=== PATIENT | female | born 1995 | race Caucasian/White ===

== ENCOUNTER 2017-08-12 12:28 | Emergency (ER) | payer BC, SELFPAY ==
[2017-08-12 12:28] VITALS: BP 126/66; PULSE 83; RESP 14; TEMP 36.9; O2SAT 99; BMI 28.3
[2017-08-12 13:08] LABS: Color, Urine Yellow (Yellow); Glucose, Dipstick Normal (Normal); Internal QC Validated? YES +Cl - CLEAR BKGD; Ketone-Dipstick 5 mg/dl (Negative); Leukocyte Esterase-Dipstick 100 /ul (Negative); Nitrite-Dipstick Negative (Negative); Occult Blood-Urine 250 /ul (Negative); Pregnancy, Urine Negative Negative; Protein-Dipstick 15 mg/dl (Negative); Specific Gravity, Urine 1.025 (1.002-1.030); Urine Bilirubin Dipstick 1 mg/dL (Negative); Urine Clarity Sl. Cloudy (Clear); Urine Urobilinogen 1 mg/dl (Normal)
[2017-08-12 13:11] LABS: Bacteria 2+ /hpf (None Seen); Mucous, Urine 1+ /hpf (<or=2+); Squamous Epithelial Cells - UA 5-10 SEEN /hpf (5-10); White Blood Cells 5-10 SEEN /hpf (0-5)
[2017-08-12 13:12] LABS: Red Blood Cells-Urine 0-5 SEEN /hpf (0-5)
--- NOTE | 2017-08-12 13:17 | ED.DCSUM_ITS ---
- ER Visit Summary Date of Service: 08/12/17 Chief Complaint: UTI. History of Present Illness: The patient is a 22 F who states that beginning she has had dysuria and urinary frequency. States she gets frequent UTIs and typically treats them herself. She states that she has been using some wjou-kxo-tzajegi Azo and is not health. Her mom advised her to seek evaluation by physician so that she does not get pyelonephritis. She denies any fevers nausea vomiting or low back pain. Physical Examination: Afebrile vital signs are stable Gen: Well-nourished well-developed Head: Normocephalic atraumatic Eyes: Perrl EOMI ENT: TMs clear no rhinorrhea moist mucous membranes Neck: Supple no lymphadenopathy no JVD nontender CVS: Regular rate rhythm no murmurs normal S1-S2 Respiratory: No distress clear to auscultation bilaterally chest nontender Abdomen: Soft nontender nondistended normal bowel sounds no masses Back: Nontender Extremity: Nontender no edema Skin: Normal color no rash Neuro: alert orientated ?3 CN II-XII intact normal strength sensation reflexes gait cerebellar Psych: Normal affect normal mood Test Results: Analysis showed 2+ bacteria. There were 5-10 epithelial cells 5- 10 white cells noted. Positive leukocyte esterase positive blood negative nitrates. Parents test negative. Emergency Department Course and Treatment: We will contaminated the patient's symptoms are consistent with UTI. I will place her on Macrobid for 5 days. Return if worsening or follow-up with primary care Impression:. Acute cystitis This note was generated with Sharetribe dictation software. It may contain incorrect words, spelling, and punctuation that were not noted in review of the chart prior to signing ED Disposition - Plan for ED Patient: Disposition: Home or Assisted Living Chief Complaint: Complaint Instructions: ED UTI Cystitis Female Prescriptions: Nitrofurantoin Macrocrystals [Macrobid] 100 mg PO Q12 #10 cap Referrals: Claudette Reveles [Primary Care Provider] - 3-5 Days if not improving
== END 2017-08-12 13:32 | disposition home or self-care (01) ==
PROVIDERS: Emergency Provider Emergency Medicine; Family Provider Nurse Practitioner Adult Health; PCP Nurse Practitioner Adult Health
DX: N39.0 Urinary tract infection, site not specified (principal); F32.9 Major depressive disorder, single episode, unspecified; Z87.891 Personal history of nicotine dependence; Z79.899 Other long term (current) drug therapy
CPT/HCPCS: 81001; 81025; 99282

== ENCOUNTER → 2018-11-04 | Outpatient (CLI) | payer OTHER, SELFPAY | END | disposition home or self-care (01) | PROVIDERS: Family Provider Family Medicine; PCP Family Medicine; Referring Provider Nurse Practitioner Adult Health; Visit Provider Nurse Practitioner Adult Health | DX: N73.0 Acute parametritis and pelvic cellulitis (principal) | CPT/HCPCS: 87070; 87205 ==

== ENCOUNTER → 2018-11-15 | Outpatient (CLI) | payer OTHER, SELFPAY ==
[2018-11-15 17:36] LABS: Chlamydia Trachomatis by PCR Negative (Negative); Neisserai gonorrhoeae by PCR Negative (Negative); Probe Check PASS; Sample Adequacy Control PASS; Specimen Processing Control PASS
== END | disposition home or self-care (01) ==
LOC: LABSPEC 13:54
PROVIDERS: Visit Provider Obstetrics & Gynecology
DX: Z12.4 Encounter for screening for malignant neoplasm of cervix (principal); Z11.3 Encounter for screening for infections with a predominantly sexual mode of transmission
CPT/HCPCS: 87491; 87591; 88175; G0145

== ENCOUNTER 2019-03-25 10:31 | Emergency (ER) | payer OTHER, SELFPAY ==
[2019-03-25 10:32] VITALS: BP 110/69; PULSE 110; RESP 16; TEMP 37.1; O2SAT 98; BMI 27.4
--- NOTE | 2019-03-25 10:51 | RAD_ITS ---
STUDY: X-RAY - RIGHT SHOULDER REASON FOR EXAM: Female, 24 years old. Shoulder pain TECHNIQUE: 4 view(s) of the shoulder. COMPARISON: None. FINDINGS: Normal glenohumeral articulation. Normal acromioclavicular joint. Normal acromion. Normal humeral head and visualized proximal humerus. The soft tissue structures are unremarkable. Normal visualized pulmonary apex. RAD/Shoulder min 2 Views IMPRESSION: Normal x-ray examination of the shoulder. Electronically Signed: Campos Clement MD at 11:19 EDT Tel , Service support ,
--- NOTE | 2019-03-25 10:51 | ED.VIS.GEN ---
History of Present Illness Chief Complaint: Upper Extremity Injury Informant: Patient Onset: Month(s) Context: Sudden Onset - Worse this evening Timing: Continuous Quality: Pain Location: Right trapezius/AC joint Current Severity: Mild Maximum Severity: Severe Worsened by: Use Relieved by: Rest Associated Symptoms: No associated symptoms Narrative: Patient is a 24-year-old fysoj-zuih-czfncbij female who presents because of exacerbation of right shoulder pain that she is had for months. She denies paresthesia, anesthesia motors. She localizes the pain to the right trapezius region and over the AC joint. There is no history of trauma. She has no cardiac respiratory symptoms. Prior similar symptoms: Yes Recent Illness/Hospitalization: No - Past Medical History (1) No significant past medical history Status: Acute Past Medical History - Allergies and Home Meds Allergies/Adverse Reactions: Allergies No Known Allergies Allergy (Verified 08/12/17 12:30) Primary Care Physician: Lance James MD [Primary Care Provider] - Prior records reviewed: Yes Past Medical History: None Surgical History: no surgical history Lives: Alone Smoking Status: Never smoker Drugs: None Review of Systems General: Denies: Chills, Fever, Subjective, Sweats Cardiovascular: Denies: Chest pain, Palpitations Respiratory: Denies: Dyspnea, Cough, Dyspnea on exertion Gastrointestinal: Denies: Nausea, Vomiting Musculoskeletal: Reports: Extremity Pain. Denies: Myalgias, Arthralgias, Neck pain, Back pain, Swelling Skin: Denies: Rash, Wounds Neurological: Denies: Weakness, Parasthesia, Numbness Physical Exam Vital Signs/Narrative: Vital Signs Temp Pulse Resp BP Pulse Ox 03/25/19 10:32 98.7 F 110 H 16 110/69 98 Inital Vital Signs reviewed: Yes General: Well nourished, Well developed, No Acute Distress Head: Normocephalic, Atraumatic Eyes: Perrl, EOMI. Negative for: Pale conjunctiva, Scleral icterus ENT: Moist mucous membranes, No rhinorrhea Neck: Supple, Nontender, No lymphadenopathy, No JVD Cardiovascular: Regular rate, Regular rhythm, No murmurs Abdomen: Soft Extremities: No edema, - - Axillary, median, radial and ulnar function intact. Radial pulses palpable. There is pain the patient over the AC joint and right trapezius. Negative drop test. Patient has significant pain with abduction past 90 degrees. There is no pain the patient over the lateral medial epicondyle present over the base of the radial head or olecranon process. There is no pain the patient over the distal radius or ulna. There is no pain the patient carpal bones, metacarpal bones or phalanges.. Negative for: Nontender Skin: Normal color, No rash Neurological: Alert, Oriented x3, Cranial nerves II-XII grossly intact, Normal Strength, Normal Sensation Psychological: Normal affect Diagnostic/Tx/Re-eval Chest X-Ray - ED: Read by ED Physician, - - View x-ray of the shoulder reveals no abnormality osseous structures. AC joint is normal. There is no calcification supraspinatus tendon. The humerus appears normal. There is no arthritic changes. - Medical Decision Making X-ray of the shoulder was obtained to determine if there is consultation of the supraspinatus tendon. Of note patient was using her cell phone when I entered the room. Also when asked to shift the left she used her right upper extremity to push off the bed and move. With an unremarkable x-ray and months of pain will discharge patient to take NSAID and follow-up with primary care physician. ED Disposition - Plan for ED Patient: Disposition: Home or Assisted Living Diagnosis: Right shoulder pain, Impingement syndrome of right shoulder Instructions: Shoulder Impingement Syndrome Prescriptions: Naproxen [Naprosyn] 500 mg PO BID #14 tab Prescription Printed Referrals: Lance James MD [Primary Care Provider] - 10-14 Days if not better
== END 2019-03-25 11:32 | disposition home or self-care (01) ==
PROVIDERS: Emergency Provider Emergency Medicine; Family Provider Family Medicine; PCP Family Medicine
DX: M75.41 Impingement syndrome of right shoulder (principal)
CPT/HCPCS: 73030; 99282

== ENCOUNTER 2019-04-25 14:53 | Outpatient (RCR) | payer OTHER, SELFPAY ==
--- NOTE | 2019-04-28 13:28 | HP.PTEVAL_ITS ---
Patient's Visit Information JOVANNY GONZALEZ is a 24 year old F referred to Physical Therapy by Tamika Navarro MD with a diagnosis of R shoulder pain. Date of Evaluation: 04/25/19 Physical Therapist: Valentino Trujillo DPT - Visit Plan Frequency: 2x /Week Duration: 4-6 Weeks Plan: Start with T spine mobilization, inferior glides to R shoulder, RTC stability exercises. May use modalities if needed. - Subjective Findings: Pt. is here today for her initial evaluation with diagnosis or R shoulder pain. Pt. reports having increased pain for ~2-3 weeks. She reports no mech of injury, but thinks it is from doing repetative motions. Pt. reports ahving pain at subacromial space and at R scapular region. Denies N/T, no weakness. Pt. has greatest pain with over head motions. Pt. does also wake up due to pain occassionally. She went to ER one day due to pain and was diagnosed with impingment. Pt. is hopeful to reduce symptoms in order to get back to all recreational and work activities without limitations. - Pain R shoulder Pain Intensity (Out of 10): 3 Pain Intensity Range: 1, 6 R scapular region Pain Intensity (Out of 10): 2 Pain Intensity Range: 1, 6 - Objective POSTURE: PT. has rounded shoulders, FH posture. Pt. is able to improve, but difficult to maintain. PALPATION: Pt. has pain with palpation of subacromial space, R UT, R T2-T6 with spring testing, and along subscapu muscle belly. NEURO: normal throughout. ROM: R shoulder- pt. has full motion, but pain with greater than ~130deg of flexion and abudction. Pt. has decreased extension of T/S. MMT: Pt. has 5-/5 R RTC strength, 5/5 shoulder abd,flexion, extension. - Goals Goal 1:: Pt. to be I with HEP. Goal Time Frame: 4-6 Weeks Goal 2:: Pt. to have increased R shoulder and RTC strength increased to 5/5. Goal Time Frame: 4-6 Weeks Goal 3:: Pt. to have full R shoulder ROM withotu increase in symptoms. Goal Time Frame: 4-6 Weeks Goal 4:: Pt. to complete all work related activtiies without increase in symptoms. Goal Time Frame: 4-6 Weeks - Rehabilitation Potential Physical Therapy Diagnosis: Pt. has signs of R shoulder pain with special testing suggesting impingment. Pt. has poor posture and rounded shoulder reinforcing her shoulder impingment. Pt. would beneift from PT to increase RTC strength/stability and working on postural strengthening. Rehabilitation Potential: Excellent - Anticipated Interventions Patient/Client Instruction: Educate patient on: Condition, Plan of Care, Risk Factors, Benefits of Fitness Program For the Purpose of:: To improve decision making, To facilitate caregiver knowledge, To improve self management, To prevent re-injury, To improve ability to perform tasks related to life management, To improve tolerance to ADL's Therapeutic Exercise to Include: Strength training, Power training, Postural training, Flexibilty training, Passive ROM, Active ROM, Tommy Exercises, Sca pular Strength/Stabilization For the Purpose of:: To decrease pain, To decrease swelling/inflammation, To increase ROM, To improve nutrient delivery to tissue, To increase oxygenation perfusion, To improve muscle performance and motor function, To improve ability of physical actions for home/community/work/leisure, To decrease soft tissue restriction, To increase flexibility/ROM Manual Therapy Techniques to Include: Mobilization, Functional dry needling, Soft tissue mobilization For the Purpose of:: To decrease pain, To decrease swelling/inflammation, To increase ROM, To improve nutrient delivery to tissue IF ES: Yes Cryotherapy (ice pack, ice massage): Yes Ultrasound (thermal/non thermal): Yes For the Purpose of:: To decrease pain, To decrease swelling/inflammation, To increase ROM Thank you for the opportunity to evaluate your patient. For Medicare and Medicare HMO plans, please review the plan of care and approve it. It will need to be FAXED BACK to us at [phone] for Medicare purposes. For Medicare only, by signing this I certify the plan of care. Please let me know if there are questions or concerns regarding this plan of care. Physician Signature : Date:
--- NOTE | 2019-10-17 08:38 | HP.PT.NRP ---
JOVANNY GONZALEZ was seen in my office for initial evaluation on 04/25/19. The following Plan of Care was established for this patient: Initial Frequency: 2x /Week Initial Duration: 4-6 Weeks Patient/Client Instruction: Educate patient on: Condition, Plan of Care, Risk Factors, Benefits of Fitness Program For the Purpose of:: To improve decision making, To facilitate caregiver knowledge, To improve self management, To prevent re-injury, To improve ability to perform tasks related to life management, To improve tolerance to ADL's Therapeutic Exercise to Include: Strength training, Power training, Postural training, Flexibilty training, Passive ROM, Active ROM, Tommy Exercises, Scapular Strength/Stabilization For the Purpose of:: To decrease pain, To decrease swelling/inflammation, To increase ROM, To improve nutrient delivery to tissue, To increase oxygenation perfusion, To improve muscle performance and motor function, To improve ability of physical actions for home/community/work/leisure, To decrease soft tissue restriction, To increase flexibility/ROM Manual Therapy Techniques to Include: Mobilization, Functional dry needling, Soft tissue mobilization For the Purpose of:: To decrease pain, To decrease swelling/inflammation, To increase ROM, To improve nutrient delivery to tissue IF ES: Yes Cryotherapy (ice pack, ice massage): Yes Ultrasound (thermal/non thermal): Yes For the Purpose of:: To decrease pain, To decrease swelling/inflammation, To increase ROM This patient was last seen in our office 04/25/19. Pertinent comments regarding their Physical therapy will appear below: Pt. was seen for her R shoulder pain. Pt. came her her initial visit and has not been seen since. Pt. will be DC from PT at this point in time. At this point I will be discontinuing this patient from physical therapy. I would be happy to see this patient again in the future if found appropriate by the physician. Thank you! SEVERINO SaucedaT
== END 2019-04-25 19:00 | disposition home or self-care (01) ==
LOC: PT 14:53
PROVIDERS: Family Provider Family Medicine; PCP Family Medicine; Referring Provider Family Medicine; Visit Provider Family Medicine
DX: M25.511 Pain in right shoulder (principal)
CPT/HCPCS: 97161

== ENCOUNTER 2020-05-10 14:48 | Emergency (ER) | payer OTHER, SELFPAY ==
[2020-05-10 14:48] VITALS: BP 137/78; PULSE 106; RESP 16; TEMP 36.5; O2SAT 100; BMI 32.8
--- NOTE | 2020-05-10 16:30 | EKG12_ITS ---
Test Reason : Blood Pressure : / mmHG Vent. Rate : 080 BPM Atrial Rate : 080 BPM P-R Int : 134 ms QRS Dur : 090 ms QT Int : 378 ms P-R-T Axes : 023 028 026 degrees QTc Int : 435 ms Normal sinus rhythm with sinus arrhythmia Normal ECG Confirmed by MISAEL BENITO, LETTY ([id number]), editor house organ AARON CARMICHAEL ([id number]) on 05/12/2020 10:45:56 AM Referred By: CHICA Confirmed By:LETTY DOUGLAS MD
--- NOTE | 2020-05-10 16:53 | ED.DCSUM_ITS ---
History of Present Illness Chief Complaint: Shortness of Breath Informant: Patient Onset: Weeks Current Severity: Moderate Maximum Severity: Moderate Narrative: Patient presents due to concerns of elevated heart rate and shortness of breath. She states her baseline heart rate is between 60 and 80. For the last week she has been running between 100-140. She states that 2 weeks ago she was exposed to someone with Covid. She had a Covid test at that time that returned negative, however her doctors felt it was a false negative. Over the past 1 week she has noted pain with deep breath and elevated heart rate. She reports the nausea she was experiencing last week is improved. She did have a second Covid test sent out and those results should be back later today or tomorrow. Past Medical History - Allergies and Home Meds Allergies/Adverse Reactions: Allergies No Known Allergies Allergy (Verified 05/10/20 14:50) Primary Care Physician: Lance James MD [Primary Care Provider] - Past Medical History: None Surgical History: no surgical history Smoking Status: Never smoker Review of Systems General: Denies: Chills, Fever Eyes: Denies: Visual changes - bilaterally ENT: Denies: Bilateral ear pain Cardiovascular: Reports: Chest pain Respiratory: Reports: Dyspnea. Denies: Cough Gastrointestinal: Denies: Abdominal pain, Vomiting, Diarrhea Genitourinary: Denies: Dysuria Musculoskeletal: Denies: Extremity Pain Skin: Denies: Rash Neurological: Denies: Headache Hematologic: Denies: Easy bruising, Easy bleeding Allergy: Denies: Uticaria Physical Exam Vital Signs/Narrative: Vital Signs Temp Pulse Resp BP Pulse Ox 05/10/20 14:48 97.7 F L 106 H 16 137/78 H 100 Inital Vital Signs reviewed: Yes General: Well nourished, Well developed Head: Normocephalic ENT: Moist mucous membranes Neck: Supple Cardiovascular: Regular rhythm, Tachycardia - Heart rate 105 the time of my examination. Respiratory: No distress, CTA bilaterally Abdomen: Soft, Nontender Neurological: Alert, Oriented x3 Psychological: Normal affect Diagnostic/Tx/Re-eval 05/10/20 17:59 CTA Chest W/WO Contrast [CT] Stat Laboratory Results 05/10/20 05/10/20 05/10/20 16:45 16:45 16:45 WBC 9.5 RBC 4.69 Hgb 14.7 Hct 42.5 MCV 90.6 MCH 31.3 MCHC 34.6 RDW Std Deviation 40.6 RDW Coeff of Terrence 12.4 Plt Count 368 MPV 9.6 Immature Gran % (Auto) 0.300 Neut % (Auto) 65.4 Lymph % (Auto) 26.1 [place] % (Auto) 6.2 Eos % (Auto) 1.6 Baso % (Auto) 0.4 Absolute Neuts (auto) 6.2 Absolute Lymphs (auto) 2.47 Nucleated RBC % 0 D-Dimer Quant (PE/DVT) 0.66 H* Sodium 143 Potassium 3.5 Chloride 114 H Carbon Dioxide 23.0 Anion Gap 6 BUN 9 Creatinine 1.10 H Estim Creat Clear Calc 65.24 Est GFR (MDRD) Af Amer 78 Est GFR (MDRD) Non-Af 65 BUN/Creatinine Ratio 8.2 L Glucose 107 H Calcium 8.6 Troponin I < 0.015 - EKG Initial EKG Interpretation: Sinus Rhythm - Sinus at 80 with no acute ischemia. - Medical Decision Making Patient was given a small amount of IV fluid here. D-dimer was slightly elevated and she was sent for CTA of her chest. She called the nurse into the room stating that she needed to leave prior to the CTA results being available. She states that her grandmother just from [place]} and she needs to go be with her family. I discussed with her the risks of leaving if she may have a blood clot in her chest. I reassured her that we would certainly call her if this is the case, but it would delay her treatment to blood thinners. She voices understanding and agreement. Patient does have a repeat Covid test pending with results available either later today or tomorrow. ED Disposition - Plan for ED Patient: Disposition: Home or Assisted Living Diagnosis: Viral syndrome Instructions: ED Viral Syndrome Referrals: Lance James MD [Primary Care Provider] -
[2020-05-10 17:02] LABS: Absolute Lymphocyte Count 2.47 X10^3/uL (0.83-4.51); Absolute Neutrophil Count 6.2 X10^3/uL (2.0-7.7); Basophil# 0.04 X10^3/uL; Basophil% 0.4 % (0-1); Eosinophil# 0.15 X10^3/uL; Eosinophils% 1.6 % (0-5); Hematocrit 42.5 % (37-47); Hemoglobin 14.7 g/dL (12.0-15.0); Lymphocyte # 2.47 X10^3/ul (4.0); Lymphocyte % 26.1 % (19-41); Mean Corp Hgb Conc 34.6 g/dL (32-36); Mean Corpuscular Hgb 31.3 pg (27.0-32.0); Mean Corpuscular Volume 90.6 fL (81-99); Mean Platelet Vol. 9.6 fl (6.2-12.0); Monocyte# 0.59 X10^3/uL; Monocyte% 6.2 % (0-10); NRBC Flagged by Analyzer 0 % (0-5); Neutrophil # 6.18 X10^3/uL (2.7-7.7); Neutrophil % 65.4 % (47-70); Platelet Count 368 K/mm3 (150-450); RBC Distribution Width CV 12.4 % (11.6-14.6); RBC Distribution Width SD 40.6 fl (35.1-43.9); Red Blood Count 4.69 M/mm3 (4.2-5.4); White Blood Count 9.5 K/mm3 (4.4-11.0)
[2020-05-10 17:05] VITALS: BP 108/63; PULSE 105; RESP 21; TEMP 36.6; O2SAT 99
[2020-05-10 17:10] VITALS: O2SAT 99
[2020-05-10 17:21] LABS: D-Dimer Quantitative (DVT/PE) 0.66 FEU/ug/m (0.27-0.49)
[2020-05-10 17:28] LABS: Anion Gap 6 (5-15); BUN 9 mg/dL (7-18); BUN/Creat Ratio 8.2 RATIO (10-20); Calcium,Total 8.6 mg/dL (8.5-10.1); Chloride 114 mmol/L (98-107); EST Glomerular Filtration Rate 65 mL/min (>60); Est Glom Filt Rate - Afr Amer 78 mL/min (>60); Estimated Creatinine Clearance 65.24 ml/min; Glucose 107 mg/dL (74-106); Potassium 3.5 mmol/L (3.5-5.1); Sodium Level 143 mmol/L (136-145)
--- NOTE | 2020-05-10 17:59 | CT_ITS ---
STUDY: CTA CHEST REASON FOR EXAM: Female, 25 years old. EXPOSED TO COVID NOW HAVING CP, SOB, RUNNY NOSE RADIATION DOSAGE (If Supplied By Facility): CTDIvol = ( 7.19 ) mGy, DLP = ( 226.14 ) mGycm TECHNIQUE: The examination was performed with the intravenous administration of IV 75mL Isovue-300. Post-processing of the angiographic images was performed, with multiplanar reformation and 3D reconstruction. Individualized dose optimization techniques were used for this CT. COMPARISON: None. FINDINGS: Normal enhancement of the main pulmonary artery and right and left pulmonary arteries. Normal enhancement of the bilateral peripheral pulmonary arteries. There is no demonstrated pulmonary embolism. Normal thoracic aorta and visualized great vessels. There is no demonstrated aortic dissection. Normal heart size and pericardium. Normal mediastinum. Normal hilar regions. Normal visualized trachea and bronchi. The lungs are well expanded. Normal pulmonary parenchyma. No consolidation or pulmonary edema or pleural effusion. Normal pleura. Normal chest wall structures. Normal osseous structures. Normal visualized upper abdomen. CT/CTA Chest W/WO Contrast IMPRESSION: 1. No demonstrated pulmonary embolism or arterial dissection. 2. No consolidation or pulmonary edema or pleural effusion. Electronically Signed: Pranav Landin MD at 19:53 EST , Service support ,
--- NOTE | 2020-05-10 18:56 | ED.RN ---
rn into room, pt questioning how much longer, stating she needs to leave d/t family emergency. rn explained the importance of staying for results of CTA. pt still wants to leave. Dr. Hernandez at the bedside, pt with verbal understanding of risk of leaving. pt still wants to leave.
[2020-05-10 19:01] VITALS: BP 104/82; PULSE 84; RESP 16; O2SAT 97
== END 2020-05-10 19:01 | disposition home or self-care (01) ==
PROVIDERS: Emergency Provider Emergency Medicine; PCP Family Medicine
DX: B34.9 Viral infection, unspecified (principal); R07.9 Chest pain, unspecified; R06.00 Dyspnea, unspecified; Z20.828 Contact with and (suspected) exposure to other viral communicable diseases
CPT/HCPCS: 71275; 80048; 84484; 85025; 85379; 93005; 99284; Q9967; A4216

== ENCOUNTER 2021-06-21 16:27 | Outpatient (CLI) | payer BC, SELFPAY | END 2021-06-21 23:59 | disposition short-term general hospital (02) | PROVIDERS: PCP Family Medicine; Referring Provider Family Medicine; Visit Provider Family Medicine | DX: Z20.822 Contact with and (suspected) exposure to COVID-19 (principal) | CPT/HCPCS: 87635; U0003; U0005 ==

== ENCOUNTER 2021-08-16 09:40 | Outpatient (RCR) | payer BC, SELFPAY ==
--- NOTE | 2021-08-16 09:05 | BH.SGPN.GN ---
Behaviors/Verbalizations/Mental Status: [] Eye contact is good. Motor activity is appropriate. Appearance is casual. Speech is Appropriate. Mood is euthymic. Affect is full. Thoughts are linear and logical. No evidence of psychosis. Reviewed daily check in sheet and pt reports 2/5 for suicidal ideations and 0/5 for intent. Suicide risk completed prior to group. Client Response/Progress/Benefit: [] Pt participated when prompted. Attentive. Daily symptom tracker notes 4/5 for anxiety, depression, and anger. This was pt's first day in IOP. 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 States that for the past 6 months her mental health has impacted her ability to complete daily functions. Group was welcoming and supportive which was beneficial. No progress noted as this was pt's first day. Will continue in IOP to maintain safety, prevent decompensation,a and improve functioning to return to work. Narrative Note: []
--- NOTE | 2021-08-16 10:05 | BH.SGPN.GN ---
Behaviors/Verbalizations/Mental Status: []Eye contact is good. Motor activity is appropriate. Appearance is casual. Speech is Appropriate, soft. Mood is anxious and depressed. Affect is constricted. Thoughts are linear and logical. No evidence of psychosis. Pt first day in group, appeared to be nervous. She was an active participant in group discussion AEB taking notes and providing some input throughout. Attentive during psychoeducation reviewing internal and external obstacles and nodding in connection to examples throughout. Participated in the reflection activity in which clients cheri pictures depicting their current and desired reality and shared with the group. Pt shared in current reality she is stuck in a storm od mood swings trying to travel down a path that keeps winding. She can see her supports but they are just out of reach. Pt expressed wanting to feel closer with her supports and more capable of managing the turning in the path ahead of her. Pt to continue IOP to improve daily functioning, and emotion regulation skills, as well as prevent decompensation. Narrative Note: []
--- NOTE | 2021-08-16 11:10 | BH.SGPN.GN ---
Behaviors/Verbalizations/Mental Status: []Client alert and oriented, neatly dressed and groomed. Eye contact good. Motor activity restless. Speech within normal limits. Affect flat, mood anxious and depressed. Thoughts linear, logical, no signs of hallucinations or delusions. Client Response/Progress/Benefit: []Client an active participant, encouraging peers and contributed as group brainstormed ideas on how to cope with internal barriers that keep clients stuck from moving towards goals. Able to identify barriers to desired reality. Identified barriers to current reality to include: negative thoughts, mood swings, unhealthy coping skills, and isolation. Client wants to work on overcoming the barrier of isolation by going to a safe place with her supports. Benefited from group by identifying obstacles and solutions to desired reality. First day of IOP tx. Will continue IOP tx to prevent decompensation, reduce suicidal ideations, and improve emotional regulation skills. Narrative Note: []
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
--- NOTE | 2021-08-17 10:05 | BH.SGPN.GN ---
Behaviors/Verbalizations/Mental Status: []Client alert and oriented, casually dressed and groomed. Eye contact good. Motor activity appropriate. Speech within normal limits. Affect congruent, mood euthymic. Thoughts linear, logical, no signs of hallucinations or delusions. Client Response/Progress/Benefit: []Client responded well to session AEB sharing and listening attentively to others. Client nodded and took notes throughout group discussion of the benefits of healthy relationships and factors that can contribute to relationships becoming unhealthy. Client provided manipulation as a trait of unhealthy relationships. Client participated in experiential activity modeling healthy relationship behaviors, contributing to group problem solving and providing supportive feedback to others. Appeared to benefit from increased knowledge of the benefits of healthy relationships and characteristics of unhealthy relationships. Will continue IOP treatment to increase healthy coping skills and mood stability to improve daily functioning. Narrative Note: []
--- NOTE | 2021-08-17 11:13 | BH.SGPN.GN ---
Behaviors/Verbalizations/Mental Status: [] Client alert and oriented, casually dressed and groomed. Eye contact fair. Motor activity restless.. Speech within normal limits. Affect congruent, mood anxious and depressed. Thoughts linear, logical, no signs of hallucinations or delusions. Client Response/Progress/Benefit: [] Client responded well to session, engaged and taking notes. Attentive during psychoeducation about characteristics of healthy, unhealthy, and abusive relationships. Able to identify relationship strengths. Client stated she struggles with trusting others because past people have done things that have hurt her. Client reported she wants to work on trusting her boyfriend because he hasn't done anything that would justify her not trusting him. Client stated she has been working on expressing her concerns with him instead of needing to go out with him every time he hangs out with people. Appeared to benefit from reflecting upon personal relationship strengths, as well as brainstorming strategies to build healthier relationships. Pt recommended to continue IOP tx to increase healthy coping skills, improve daily functioning and prevent decompensation.
[2021-08-17 11:15] VITALS: BP 127/67; PULSE 97
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
--- NOTE | 2021-08-17 13:09 | BH.DR.ITP ---
Initial Treatment Plan Patient Information Visit Information: ADMISSION DATE: EXPECTED LOS: 4-6 weeks Problems/Symptoms Problem #1:: Mood instability Symptom:: Depression, anger outbursts, irritability, anhedonia, hopelessness, guilt, hypersomnia, low energy, decreased concentration, passive thoughts of , thoughts of self-harm, passive suicidal ideation Problem #2:: Anxiety Symptom:: Worry, panic attacks, avoidance, flashbacks, reexperiencing, nightmares
--- NOTE | 2021-08-18 09:05 | BH.SGPN.GN ---
Behaviors/Verbalizations/Mental Status: [] Eye contact is good. Motor activity is appropriate. Appearance is disheveled. Speech is Appropriate. Mood is anxious. Affect is congruent. Thoughts are linear and logical. No evidence of psychosis. Reviewed daily check in sheet and pt reports 3/5 for suicidal thoughts and 0/5 for intent. This has been baseline since starting IOP. Client Response/Progress/Benefit: [] Pt was an active participant in group discussion. Attentive. Provided appropriate feedback. Daily symptom tracker notes 5/5 for depression and anger. Mental health win is I got up and got here. Shared that she was depressed with limited motivation this AM. Another mental health win was having a difficult conversation with her friend and BF. They expressed that pt is overly attached to them and would benefit from more independent times and improving her level of comfort in being alone. Pt responded well to the conversation and has made this a goal. Stressors is that her mother is going through a divorce and is oversharing. Discussed how this is impacting her mental health and her reluctance to set boundaries with her mother. Group provided support and feedback which was beneficial. Progress noted per pt report. Will continue in IOP to maintain safety, increase healthly coping, and improve functioning to return to work. Narrative Note: []
--- NOTE | 2021-08-18 10:15 | BH.SGPN.GN ---
Behaviors/Verbalizations/Mental Status: []Client alert and oriented, casually dressed and groomed. Eye contact good. Motor activity appropriate. Speech within normal limits. Affect congruent, mood anxious and depressed. Thoughts linear, logical, no signs of hallucinations or delusions. Client Response/Progress/Benefit: []Pt engaged throughout AEB taking notes, listening attentively, and providing some input throughout. Attentive during psychoeducation and discussed the importance of goal-setting with the group. Pt indicated ?Goals can help give you something to keep working towards and feel accomplished?. Group identified potential benefits of having goals to include: they motivate, increase self-confidence, provide a sense of accomplishment, help hold you accountable, and provide a sense of purpose. Group also worked together to identify barriers to goal-setting which included; negative self-talk, lack of motivation, fear of other?s reactions, unrealistic expectations, and procrastination/excuses. Pt identified personal barriers to include negative self-talk and difficulties working on her goals independently. Benefited from increased awareness of benefits and barriers to goal-setting. Pt will continue in IOP to prevent decompensation, increase healthy coping skill repertoire, stabilize mood, as well as further improve daily functioning. Narrative Note: []
--- NOTE | 2021-08-18 11:15 | BH.SGPN.GN ---
Behaviors/Verbalizations/Mental Status: []Client alert and oriented, casually dressed and groomed. Eye contact good. Motor activity appropriate. Speech within normal limits. Affect constricted, mood dysthymic. Thoughts linear, logical, no signs of hallucinations or delusions. Client Response/Progress/Benefit: []Pt was an active participant in group discussions and activities. Engaged in activity. Pt identified a SMART goal for the next week is to: pick one from from her list of activities that she can do alone two times by Sunday. Pt reported this would benefit her by increasing independence and finding things she likes to do. Identified negative thoughts, procrastination, memory issues, confidence, and feeling better as potential barriers to completing this goal. Pt able to identify several solutions, such as positive self-talk, sticky note visual aid, and self-talk, that can help overcome identified barriers. Benefited from group by being able to utilize SMART educate to create a goal. Pt to continue IOP to decrease impulsiveness, increase consistent use of healthy coping skills and prevent decompensation.
--- NOTE | 2021-08-19 10:22 | BH.MDN ---
Multi-Disciplinary Note - Note 45-min Individual Time Started:: 09:00 Date: 08/19/21 Purpose of session/treatment goals addressed:: Purpose of session was to assess pt's current symptoms and stressors and identify treatment goals for IOP. Eye Contact:: Fair Motor Activity:: Restless Appearance:: Casual Speech:: Appropriate Mood:: Anxious Affect:: Congruent Thoughts:: Linear, Logical, No evidence of hallucinations/delusions noted Staff Interventions:: psychoeducation on: - borderline personality disorder, rapport building, strengths perspective, treatment planning, other - homework to complete handout on attachment Client Response:: Client reported yesterday she worked on her goal from group of spending time drawing by herself. Client stated she wanted to wake her boyfriend up to sit with her but instead put music on and spent time with herself. Client reported she was anxious at first when being alone but felt less anxious after a few minutes. Client stated areas she needs to work on on grief therapy, issues with her dad, and being able to set boundaries with her mom. Through discussion with therapist client agreed it could be helpful to first focus on building skills before dealing with some triggering past situations. Client agreed she could benefit from going to a grief therapist after IOP. Client reported she is worried about setting boundaries with her mom because worried her mom will never talk to her again. Client stated her mom overshares which can add stress to client. Client stated she needs to decide if she is okay with the potential consequences of setting boundaries with her mom. Client connected with all the symptoms of borderline personality disorder (BPD). Client identified fear of abandonment, affective instability, impulsivity, and idealization/devaluation of relationships. Client stated she struggles with becoming too attached to people and needs them around all the time. Client aware these symptoms negatively impact relationships and her own mental health. Agreeable to complete homework. Risks/Concerns:: Client reports passive thoughts of , denies suicidal plan or intention. Future focused. Feels able to maintain safety. Progress Toward Goals/Plan:: Progress limited given client's first week in IOP. Can note with client following through with goal from group yesterday. Client would like to learn more about BPD so can increase skills to manage those symptoms. Client also wants to work on improving ability to set boundaries and have difficult conversations. Client to continue IOP to improve mood stability, improve emotion regulation skills and prevent decompensation. Time Stopped:: 09:42
--- NOTE | 2021-08-19 10:49 | BH.MTP_ITS ---
Master Treatment Plan - Patient Information Program Physician:: Dr. Mahajan Primary Therapist:: Arlin Shah, [facility] - Psychiatric Diagnoses Psychiatric Diagnoses:: 1. Bipolar disorder, NOS. 2. Borderline personality disorder. 3. Generalized anxiety disorder. 4. Rule out attention deficit disorder per patient history. 5. Rule out alcohol use disorder. 6. Nicotine dependence Diagnosis Code(s):: F31.9 - Estimated LOS Estimated LOS (in weeks):: 6 Problem/Goal #1 - Problem/Goal #1 Stated Goal:: Client will reduce depression, feelings of hopelessness, and suicidal ideation. Description of Barriers: Low motivation, distorted thoughts, impulsivity, negative thought patterns, limited support system, and hopelessness could be potential barriers to treatment. Functional Impact: Patient reports worsening symptoms of depression for the past 6 months to the point where it becomes hard for her to complete her activities of daily living. She currently works at [employer] for the past 4 months but has been frequently calling off work due to the severity of her mental health symptoms and she last worked 1 week ago. She endorses feeling down and having crying episodes. She has low motivation, hopelessness, worthlessness, guilt, anhedonia, decreased appetite, low energy and decreased concentration. She admits to fleeting, passive suicidal ideation. She admits to thoughts of self- harm by tattooing and cutting. She has passive thoughts that she would not care if she . She denies active suicidal ideation, plan for suicide, homicidal ideation, hallucinations, delusions or current symptoms of khushi - Objectives Objective #1 Stated Objective: Client will learn and utilize 2-3 healthy coping strategies to manage depressive symptoms. Interventions: Therapist will utilize CBT techniques to assist client with understanding the connection between thoughts, feelings and behaviors. Education will be provided on behavioral activation. Therapist will assist client in lear christie internal coping strategies to manage depressive symptoms, along with helping client identify triggers. Discharge Criteria: Client will have achieved this goal when can verbalize and has practiced at least 2 healthy coping strategies that successfully manage depressive symptoms. Target Date: 09/27/21 Review Date: 09/13/21 Objective #2 Stated Objective: Pt will decrease depressive symptoms AEB pt?s score on the DSM 5 cross-cutting measure and improve pt?s daily functioning. Interventions: Through groups and individual therapy, pt will be provided with education on cognitive distortions, mistaken beliefs, and identifying and combating negative self-talk. Therapist will assist pt with getting back into the activities she once enjoyed as well as increasing healthy coping strategies. Discharge Criteria: Pt will have met this goal when pt?s score on the DSM 5 cross cutting measure for depression has been decreased and per pt?s report daily functioning has improved. Target Date: 09/27/21 Review Date: 09/13/21 Problem/Goal #2 - Problem/Goal #2 Stated Goal:: Stabilize anxiety level while increasing ability to function on daily basis. Description of Barriers: Low motivation, distorted thoughts, impulsivity, negative thought patterns, limited support system, and hopelessness could be potential barriers to treatment. Functional Impact: Patient reports worsening symptoms of depression for the past 6 months to the point where it becomes hard for her to complete her activities of daily living. She currently works at [employer] for the past 4 months but has been frequently calling off work due to the severity of her mental health symptoms and she last worked 1 week ago. She endorses feeling down and having crying episodes. She has low motivation, hopelessness, worthlessness, guilt, anhedonia, decreased appetite, low energy and decreased concentration. She admits to fleeting, passive suicidal ideation. She admits to thoughts of self- harm by tattooing and cutting. She has passive thoughts that she would not care if she . She denies active suicidal ideation, plan for suicide, homicidal ideation, hallucinations, delusions or current symptoms of khushi - Objectives Objective #1 Stated Objective: Client will learn and implement 2-3 calming skills to reduce overall anxiety and manage anxiety symptoms. Interventions: Group and individual therapy will help client identify triggers and warning signs of anxiou symptoms. Will also teach calming/relaxation skills and how to apply these skills to everyday life. Discharge Criteria: Client will have achieved this goal when can verbalize at least 2 calming strategies and have practiced techniques to help reduce anxiety. Target Date: 09/27/21 Review Date: 09/13/21 Objective #2 Stated Objective: Pt will decrease anxious symptoms AEB pt?s score on the DSM 5 cross-cutting measure improve pt?s daily functioning. Interventions: Through groups and individual therapy, pt will be provided education about anxiety?s impact on body and common physiological reaction to anxiety. Therapist will teach pt appropriate breathing techniques and build healthy coping skills to manage daily anxieties. Discharge Criteria: Pt will have met this goal when pt?s score on the DSM 5 cross cutting measure for anxiety has been decreased and per pt?s report daily functioning has improved. Target Date: 09/27/21 Review Date: 09/13/21
--- NOTE | 2021-08-19 11:13 | BH.SGPN.GN ---
Behaviors/Verbalizations/Mental Status: []Client alert and oriented, casually dressed and grooming appropriate. Eye contact good. Motor activity appropriate. Speech within normal limits, quiet. Affect congruent. mood dysthymic and anxious. Thoughts linear, logical, no signs of hallucinations or delusions. Client Response/Progress/Benefit: []Client engaged in session AEB contributing to discussion and taking notes throughout. Engaged in discussion on what prevents moving on to the ?next chapter? in our life and the importance of problem-solving solutions to address identified barriers. Participated as group brainstormed the components of A,B,C,D,E problem solving method and various strategies for promoting follow-through in each stage. Client identified negative thoughts and poor boundaries as barriers preventing her from moving to the next chapter in mental health recovery. Identified logging her emotions and remaining consistent with therapy as a realistic steps she can take in the problem-solving process. Appeared to benefit from learning about problem solving method and practice applying this to personal barriers identified. Progress noted in client self-report of increased engagement in self-care the previous night. Will continue IOP tx to improve independent skill application, reduce negative thinking, and continue to promote healthy change behaviors. Narrative Note: []
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
--- NOTE | 2021-08-22 09:00 | BH.SGPN.GN ---
Behaviors/Verbalizations/Mental Status: [] Eye contact is good. Motor activity is appropriate. Appearance is causal. Speech is Appropriate. Mood is euthymic. Affect is full. Thoughts are linear and logical. No evidence of psychosis. Reviewed daily check in sheet and pt reports 4/5 for suicidal thoughts and 0/5 for intent. Her verbalized emotions for today during check-in are incongruent with self-reported scores and affect. Notes being excited and future oriented. Therapist notified. Her baseline has been elevated SI since starting IOP. Client Response/Progress/Benefit: [] Pt was an active participant in group discussion. Attentive. Provided appropriate feedback. Emotion for today is excited. Daily symptom tracker notes 5/5 for depression, 3/5 for anxiety, and 4/5 for anger. Mental health wins include setting boundary with her mother over the weekend as well continuing to work on being more independent. She reports crying spells and negative thoughts over the weekend regarding divorce of her parents however insight that this is to be expected. She has plans to spend this afternoon with a friend who is also in treatment for mental health. Moods continues to be erratic with anxiety, depression and anger however she reports decreased intensity. Progress noted per pt report. Pt's check-in was mainly positive and she reports being hopeful however this is incongruent with her self-reported daily symptom tracker. Will continue in IOP to maintain safety, increase healthy coping, and improve functioning to return to work. Narrative Note: []
--- NOTE | 2021-08-22 10:05 | BH.SGPN.GN ---
Behaviors/Verbalizations/Mental Status: []Client alert and oriented, casually dressed and groomed. Eye contact good. Motor activity appropriate. Speech within normal limits. Affect constricted, mood anxious. Thoughts linear, logical, no signs of hallucinations or delusions. Client Response/Progress/Benefit: [] Pt was an attentive participant AEB taking notes and contributing throughout. Attentive during psychoeducation on Conflict Styles ( Avoidant, Competing, Accommodating, and Collaborating). Participated in interactive group discussion on benefits of conflict.? Pt along with peers identified several reasons conflict is often avoided as well as why conflict is beneficial to one?s mental health and relationships. Pt reported connecting most with the competing and accommodating styles. Pt shared ?I?m a people pleaser but also very competitive.? Pt stated this leads to issues within her relationship and causes internal conflict. Benefited from increased awareness on conflict styles. Will continue in IOP to prevent decompensation, improve emotional regulation skills, and combat distortions. Narrative Note: []
--- NOTE | 2021-08-22 11:15 | BH.SGPN.GN ---
Behaviors/Verbalizations/Mental Status: []Client alert and oriented, casually dressed and appropriately groomed. Eye contact good. Motor activity appropriate. Speech within normal limits. Affect congruent, mood euthymic. Thoughts linear, logical, no signs of hallucinations or delusions. Client Response/Progress/Benefit: []Client engaged in session AEB contributing to discussion and taking notes. Client did well to participate during the activity in which participants were challenged to eliminate various items through group consensus. Client contributed to discussion of the barriers that occurred during the activity as well as the conflict resolution strategies. Client stated when her she gets too heated she tends to just keep talking, which can lead to her saying things she doesn't mean. Client stated she would like to work on taking a break when her emotions are too intense then return to conversation when she is feeling calmer. Appeared to benefit from learning strategies to better manage conflict. Will continue IOP tx to reduce negative thinking, improve mood stability, and prevent decompensation.
--- NOTE | 2021-08-23 10:10 | BH.SGPN.GN ---
Behaviors/Verbalizations/Mental Status: []Client alert and oriented, casually dressed and groomed. Eye contact good. Motor activity appropriate. Speech within normal limits. Affect congruent, mood euthymic. Thoughts linear, logical, no signs of hallucinations or delusions. Client Response/Progress/Benefit: []Client responded well to session AEB listening attentively to others. Client nodded and took notes throughout group discussion defining boundaries and their importance. Client was engaged throughout clinician providing psychoeducation on types of boundaries, including physical, material, and emotional. Client listened attentively as group members shared personal examples of boundaries they have set. Appeared to benefit from increased knowledge of types of boundaries and their importance. Will continue IOP treatment to continue increasing healthy coping skills and mood stability to improve daily functioning. Narrative Note: []
--- NOTE | 2021-08-23 11:15 | BH.SGPN.GN ---
Behaviors/Verbalizations/Mental Status: []Client alert and oriented, casually dressed and groomed. Eye contact fair. Motor activity restless. Speech within normal limits. Affect constricted, mood dysthymic and anxious. Thoughts linear, logical, no signs of hallucinations or delusions. Client Response/Progress/Benefit: []Pt responded well to session AEB listening attentively to peers and providing input. Pt attentive during psychoeducation on the different boundary styles. Pt noted connecting most with the porous boundary setting style. Pt shared she struggles with taking on other people?s emotions and tries to solve others? problems. Pt was given a handout on strategies for healthy boundary setting. Pt identified wanting to work on being assertive and reinforcing boundaries with her mother to improve boundary setting. Appeared to benefit from increasing insight to boundary setting and the impacts on mental health. Will continue IOP tx to prevent decompensation, improve emotional regulation skills, and gain self-awareness of symptoms. Narrative Note: []
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
--- NOTE | 2021-08-25 09:05 | BH.SGPN.GN ---
Behaviors/Verbalizations/Mental Status: [] Eye contact is good. Motor activity is appropriate. Appearance is casual. Speech is Appropriate. Mood is anxious. Affect is congruent. Thoughts are linear and logical. No evidence of psychosis. Reviewed daily check in sheet and no reports of suicidal ideations or intent. Client Response/Progress/Benefit: [] Pt was an active participant in group discussion. Attentive. Provided appropriate feedback. Emotion for today is irritable. Mental health wins include being able to call my support to help with anxiety and panic attack. Another win is that she continues to work on goal of being more independent. Shared a panic attacks yesterday evening however did not discuss the trigger. While she was able to utilize healthy coping skills to manger this acute anxiety so admits to spending excessively to self-soother and make herself feel better. Group provided feedback on possible skills to use in the future to minimize impulsive behaviors such as making a list of questions to ask herself prior to being something; Will I need this in 3 months, Is this a need or want, and Am I buying this to feel better? Benefited from group support, encouragement, and feedback. Progress noted per pt report. Will continue in IOP to maintain safety, increase healthy coping, and to improve functioning to return to work. Narrative Note: []
--- NOTE | 2021-08-25 10:20 | BH.SGPN.GN ---
Behaviors/Verbalizations/Mental Status: []Client alert and oriented, casually dressed and groomed. Eye contact good. Motor activity restless-tapping foot. Speech within normal limits. Affect constricted, mood dysthymic. Thoughts linear, logical, no signs of hallucinations or delusions. Client Response/Progress/Benefit: []Pt was an engaged participant AEB pt listening attentively to others and providing input throughout. Attentive during psychoeducation on communication styles. Assisted group with identifying benefits of effective communication on mental health which included: getting needs met, improves relationships, maintains boundaries, and prevents additional conflict. Pt identified she most often uses passive-aggressive communication and that her mother is ?the beltre of passive-aggressive.? Pt reports this style negatively impacts her relationships. Benefited from increased awareness of different communication barriers, styles, and the importance of communicating effectively to improve mental wellness. Will continue IOP tx to reduce distorted thought patterns, improve overall functioning, and gain healthy coping skills. Narrative Note: []
--- NOTE | 2021-08-25 11:20 | BH.SGPN.GN ---
Behaviors/Verbalizations/Mental Status: []Client alert and oriented, casually dressed and appropriately groomed. Eye contact fair. Motor activity appropriate. Speech WNL. Affect constricted, mood dysthymic. Thoughts linear, logical, no signs of hallucinations or delusions. Client Response/Progress/Benefit: []Client responded well to session AEB client listening attentively to others and providing input during group discussion on the pay offs and costs of the different communication styles. Attentive during psychoeducation on interpersonal DBT skill AMANDEEP. Client stated she wants to work on being more assertive with her others, especially when trying to set boundaries. Client stated she wants to focus on they way she communicates becuase realizes now the impact tone can have on a conversation. Client seemed to benefit from increasing awareness of healthy strategies to improve communication. Will continue IOP tx to challenge distorted/negative thoughts, increase consistent use of healthy coping skills and prevent decompensation.
--- NOTE | 2021-08-29 09:01 | BH.SGPN.GN ---
Behaviors/Verbalizations/Mental Status: [] Eye contact is good. Motor activity is appropriate. Appearance is casual. Speech is Appropriate. Mood is anxious. Affect is congruent. Thoughts are linear and logical. No evidence of psychosis. Reviewed daily check in sheet and no reports of suicidal ideations or intent. Client Response/Progress/Benefit: [] Pt was an active participant in group discussion. Attentive. Provided appropriate feedback. Pt shared she reinforced boundary with her mom that pt can't be her mom's sole support for difficult topics right now. Pt stated her mom yelled at her and made passive aggressive statements. Pt reported her mom then called her the next day to get support from pt again. Pt stated this time her mom caught that she was again using pt for her emotional support. Pt reported she was afraid to remind mom of the boundary in the moment because didn't want to get yelled at again. Pt reported she knows she needs to be more firm with boundary but is often worried about mom's response. Connected with support from group that pt has right to set boundaries. Pt reported mental health positive as spending time with her grandparents from out of state. Pt stated she did use breathing skills to help when she was feeling anxious. Benefited from group support, encouragement, and feedback. Progress noted per pt report. Will continue in IOP to continue challenging distorted thoughts, improve emotion regulation and prevent decompensation.
--- NOTE | 2021-08-29 10:05 | BH.SGPN.GN ---
Behaviors/Verbalizations/Mental Status: []Client alert and oriented, casually dressed and groomed. Eye contact good. Motor activity appropriate. Speech within normal limits. Affect congruent, mood euthymic. Thoughts linear, logical, no signs of hallucinations or delusions. Client Response/Progress/Benefit: []Client responded well to session AEB sharing and listening attentively to others. Client was engaged throughout group discussion identifying what makes up a support system, what can weaken it, providing that a support struggling with their own stressors can weaken a support system. Group also discussed the benefits of social support. Client participated in experiential activity illustrating the importance of social support as well as modeling communication that strengthens support systems. Client provided support to group members throughout activity. Appeared to benefit from increased knowledge of social support and self-awareness of personal support system. Will continue IOP treatment to continue increasing application of healthy coping skills and decrease negative self-talk to improve daily functioning. Narrative Note: []
--- NOTE | 2021-08-29 11:15 | BH.SGPN.GN ---
Behaviors/Verbalizations/Mental Status: []Client alert and oriented, casually dressed and groomed. Eye contact good. Motor activity appropriate. Speech within normal limits. Affect constricted, mood calm. Thoughts linear, logical, no signs of hallucinations or delusions. Client Response/Progress/Benefit: []pt was an active participant throughout AEB contributing to discussion, providing personal examples, and taking notes. Pt processed emotions pt felt in the activity and how pt coped in the moment. Pt provided input during discussion on the types of support our supports can provide. Pt reports wanting to work on increasing emotional support, noting this will provide pt connection and acceptance. Pt plans to improve this support by exploring local support groups in [place]. Pt seemed to benefit from identifying the type of support and how this support will aid in promoting overall mental wellness. Progress noted in pt?s report of increased insight. Will continue IOP tx to prevent decompensation, improve emotional regulation skills, and gain ability to set boundaries. Narrative Note: []
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
--- NOTE | 2021-09-01 10:10 | BH.SGPN.GN ---
Behaviors/Verbalizations/Mental Status: []Eye contact is good. Motor activity is appropriate. Appearance is neat. Speech is appropriate. Mood is euthymic. Affect is congruent. Thoughts are linear and logical. No evidence of psychosis Client Response/Progress/Benefit: []Pt was an engaged participant in group discussion, providing input and was attentive during psychoeducation. Participated in short activity about automatic thoughts and shared that mood and past experiences can impact automatic thoughts. Group was primarily educational; therapist introduced and gave examples of the most common cognitive distortions. Benefited from education and increased awareness of cognitive distortions and the role that they play our behaviors and emotions. Pt reported connecting with distortions such as catastrophizing, personalizing, and mind-reading. Pt reports mind-reading often leads to pt believing that her friend is mad at me or hates me when this is not true. Will continue IOP tx to challenge distortions that reinforce depression and anxiety, increase distress tolerance skills, and improve daily functioning. Narrative Note: []
--- NOTE | 2021-09-01 11:10 | BH.SGPN.GN ---
Behaviors/Verbalizations/Mental Status: []Eye contact is good. Motor activity is appropriate. Appearance is neat. Speech is appropriate. Mood is euthymic. Affect is congruent. Thoughts are linear and logical. No evidence of psychosis Client Response/Progress/Benefit: []Pt was an active participant in discussion. Attentive during psychoeducation on cognitive distortions not discussed in previous group and providing several personal examples. Pt identified distortions she connects with during previous group, but gave more examples of mind-reading and personalizing. Pt shared she will often take on other people's emotions and problems and make it her responsibility to make others feel better. Reviewed strategies to help challenge and reframe distortions. Pt picked the strategy of asking herself is this 100% true 100% of the time to help challenge negative thoughts. Will continue in IOP tx to increase distress tolerance and emotional regulation skills while improving daily functioning. Narrative Note: []
--- NOTE | 2021-09-02 09:00 | BH.SGPN.GN ---
Behaviors/Verbalizations/Mental Status: []Eye contact is fair. Motor activity is appropriate. Appearance is casual. Speech is Appropriate. Mood is euthymic. Affect is congruent. Thoughts are linear and logical. No evidence of psychosis. Reviewed daily check in sheet pt indicated a 3/5, with 5 being severe, for suicidal thoughts and a 0/5 for suicidal intention. This is pt's baseline. Does not appear to be imminent risk to harm self. Client Response/Progress/Benefit: []Pt responded well to session AEB sharing thoughts and feelings and listening attentively to peers. Pt reported mental health positive as spending time with friends outside yesterday in the nice weather. Pt stated she did act somewhat irrationally yesterday when she felt like her best friend was abandoning her. Pt reported she knows trying to convince her friend to stay when they wanted to leave is not how she wants to react to people. Progress noted with pt showing increased awareness in irrational thinking. Pt identified additional mental health positive as getting her dog to play with another dog. Seemed to benefit from support from peers. Pt to continue IOP to challenge distorted thoughts, increase consistent use of healthy coping skills and prevent decompensation.
--- NOTE | 2021-09-02 11:14 | BH.SGPN.GN ---
Behaviors/Verbalizations/Mental Status: []Client alert and oriented, casually dressed and groomed. Eye contact good. Motor activity appropriate. Speech within normal limits. Affect congruent. mood anxious and euthymic. Thoughts linear, logical, no signs of hallucinations or delusions. Client Response/Progress/Benefit: []Client engaged during activity and discussion AEB providing some input, connecting with peers, as well as taking notes throughout. Client did well to engage as group worked on identifying characteristics and benefits of adopting a growth mindset. Worked with fellow participants in reframing the example fixed thoughts into growth mindset thoughts, providing ideas throughout. Client worked in small group to apply skills learned to reframe own personal fixed thoughts. Reframed personal fixed thought of ?I?m not going to be able to get through this? with growth mindset thought of ?I can continue to use the skills I have learned and learn new skills to help. One bad day doesn?t define me or my mental health?. Noted that this would aid in reducing negative self-talk and improve confidence in her coping capabilities. Benefitted from discussing benefits of growth mindset and brainstorming strategies for prompting growth-mindset. Will continue IOP tx to continue to promote active skill application, maintain mood stability, as well as continue to improve healthy coping repertoire. Narrative Note: []
--- NOTE | 2021-09-02 15:28 | BH.MDN ---
Multi-Disciplinary Note - Note 30-min Individual Time Started:: 10:10 Date: 09/02/21 Purpose of session/treatment goals addressed:: Purpose of session was to address goals 1 and 2 from MTP. Eye Contact:: Good Motor Activity:: Restless Appearance:: Casual Speech:: Appropriate Mood:: Anxious, Depressed Affect:: Constricted Thoughts:: Linear, Logical, No evidence of hallucinations/delusions noted Staff Interventions:: thought challenging, CBT techniques, strengths perspective, goal setting Client Response:: Client reported she did set a boundary with her mom asking her mom to not talk to her about mom from pt's step-dad. Client stated her mom has been respecting this boundary for the last week which has decreased stress and anxiety for client. Client reported she met up with best friends and realizes now that she was trying to manipulate her best friend to stay longer by acting sad and mopey when the best friend said she was going to leave. Client stated she has a crush on this friend and wanted to keep hanging out. Realized trying to guilt her friend to staying longer is not healthy and could push the friend away. Client stated she was able to challenge negative thoughts when the friend left. Client reported anxiety has been more manageable in the last week. Stated her depression is being impacted by her disrupted sleep. Stated she has noticed some improvement with motivation and energy throughout day, but the disrupted sleep is taking a toll on her mood. Pt stated she has been following through with goal she set to spend more time alone. Stated she will want to wake her boyfriend up to be with her but pushes through the urge and finds something to do. Pt reported game plan for the weekend is to listen to music, spend time gardening, be outside and take dog for a walk. Risks/Concerns:: Pt reports chronic passive thoughts of . Denies active suicidal ideation, plan or intention to date. future focused. Progress Toward Goals/Plan:: Progress noted with pt reporting decreased anxiety since setting boudnary with her mom. Pt showing increased self-awareness into how her distorted thoughts can negatively impact her behavior. Actively working on being able to challenge/reframe distorted thoughts. Pt reported ongoing depressed symptoms which she attributes to poor sleep recently. Pt continuing to use opposite action, thought challenge and trying to get out of the house. Pt to continue IOP to increase healthy coping, challenge distorted thoughts and prevent decompensation. Time Stopped:: 10:45
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
--- NOTE | 2021-09-05 10:10 | BH.SGPN.GN ---
Behaviors/Verbalizations/Mental Status: [] Eye contact is good. Motor activity is appropriate. Appearance is casual. Speech is Appropriate. Mood is depressed. Affect is flat. Thoughts are linear and logical. No evidence of psychosis. Client Response/Progress/Benefit: [] Pt was an active participant in group discussion and activity. Attentive during psychoeducation on social stigma vs self-stigma. Pt was actively involved in interactive discussion on the question of What impacts how we define and view ourselves? Pt along with peers were able to identify several aspects that impact how we view ourselves which include; society, past experiences, upbringing, guilt over past actions, shame, what we tell ourselves, actions, and our roles (i.e. mother, father, unemployed, crazy). Pt also participated in identifying examples of social stigma for mental health illness which included too sensitive, looking for attention, overly emotional, psycho, crazy, just an excuse, not working hard enough, lazy, mental health is not real, just a pessimist, and mental health can just be turned off. Benefited from increased awareness of how mental health stigma can impact individuals and treatment. Plan is to continue in IOP to maintain safety, increase healthy coping, stabilize mood, and prevent decompensation. Narrative Note: []
--- NOTE | 2021-09-05 11:10 | BH.SGPN.GN ---
Behaviors/Verbalizations/Mental Status: []Client alert and oriented, casually dressed and groomed. Eye contact fair. Motor activity appropriate. Speech within normal limits. Affect constricted, mood depressed. Thoughts linear, logical, no signs of hallucinations or delusions. Client Response/Progress/Benefit: []Client engaged participant AEB client participating in the activity, providing some input during small group discussion, and listening attentively to others. Client appeared to connect with discussion about what stigma has kept her from doing. Group brainstormed strategies to combat social and perceived stigma. Client shared one thing she can personally do to combat stigma is to talk about her mental health and let others know she is getting treatment. Appeared to benefit from increasing awareness of strategies to combat stigma. Will continue IOP tx to challenge negative thinking, improve emotion regulation and prevent decompensation.
--- NOTE | 2021-09-07 09:00 | BH.SGPN.GN ---
Behaviors/Verbalizations/Mental Status: [] Eye contact is fair. Motor activity is appropriate. Appearance is casual. Speech is Appropriate. Mood is anxious. Affect is constricted. Thoughts are linear and logical. No evidence of psychosis. Reviewed daily check in sheet and no reports of suicidal ideations or intent. Client Response/Progress/Benefit: [] Pt was an engaged participant in group discussion. Attentive. Pt identified mental health positive as attending her first PALS support group to help her cope with grief from two friends that by suicide. Pt reported all though she cried a lot she found it to be helpful to have support from peers and talking about the friends she lost. Pt reported additional mental health positive as accomplishing goal of showering two times in a week. Pt reported skills she has used include talking thorough triggers and opposite action. Pt stated current stressor as not talking with boyfriend about conflict they had Sunday to come to a resolution. Benefited from group support, encouragement, and feedback. Progress noted per pt report. Will continue in IOP to challenge negative thinking, increase healthy coping and prevent decompensation.
--- NOTE | 2021-09-07 11:49 | PCM.BH.PN ---
Progress Note Progress Note: History of Present Illness/Interim History: [] The patient is a 26-year-old female with a history of depression, anxiety and borderline personality disorder who is seen in follow-up at the [facility] behavioral health IOP program. I last saw the patient 3 weeks ago and at that time her Abilify dose was decreased to 10 mg as she was complaining of fatigue and fogginess. She states that she feels much less foggy and much less overmedicated since decreasing her Abilify. Her mood is overall more stable. She is having less spells of feeling I have great. Her anxiety is much improved and she has having infrequent panic attacks now. She denies any self-harm or thoughts of self-harm. She still has some thoughts that she would not care if she but she denies any passive or active suicidal ideation. She also denies plan for suicide, homicidal ideation, hallucinations, delusions or symptoms of khushi. She does admit that she used Adderall 1 time in the past 3 weeks that she obtained from a friend. She is enjoying the IOP program and has been consistent and engaged in the program. Current Psychiatric Medications: [] Abilify 10 mg p.o. nightly (x2 years, dose decreased from 20 mg 3 weeks ago); Lamictal 150 mg p.o. daily (dose increased 3 weeks ago from 100 mg); Prozac 20 mg p.o. daily; Vistaril 25 mg as needed for panic attacks Mental Status Examination: [] The patient is a 26-year-old female with dark green hair in the front and black hair everywhere else. She is casually dressed and groomed with good hygiene and appears normal for stated age and is wearing a mask due to the pandemic. She has no psychomotor agitation or retardation. She is ambulatory with a normal gait. Eye contact is good and speech is normal rate and rhythm and fluent with no pressure. Mood is depressed. Affect is full. Thought process is goal-directed and organized. Thought content: There is evidence of passive thoughts of . There is no evidence of self-harm, suicidal ideation, homicidal ideation, hallucinations or delusions. Judgment is intact. Insight is limited. Impulsivity is high. Diagnoses: [] 1. Bipolar disorder, NOS 2. Borderline personality disorder 3. Generalized anxiety disorder 4. Rule out ADD per patient history 5. Rule out alcohol use disorder 6. Nicotine dependence 7. Primary support and work issues Plan: [] The patient will continue the IOP program in behavioral health at [facility] as the structure, support, education and group therapy will hopefully prevent worsening of the patient's symptoms which might require hospitalization. The patient felt safe during the interview and if it anytime she does not feel safe she will let us know or go to the emergency room. The risks, options, possible side effects and complications of the medications were again discussed with the patient and she understands and accepts these. The patient agrees to increase her Lamictal to 200 mg p.o. nightly. Prescription was sent in for this with 1 refill. The rest of her medications will Be continued at the current doses. She will continue to follow-up with her outpatient psychiatric and medical providers. She agrees to eliminate any alcohol use and other drug use.
--- NOTE | 2021-09-07 15:22 | BH.TPR ---
Treatment Plan Review Date of Admission:: 08/16/21 Date of Treatment Plan Review:: 09/07/21 Admitting Diagnoses:: 1. Bipolar disorder, NOS F31.9. 2. Borderline personality disorder. 3. Generalized anxiety disorder. 4. Rule out attention deficit disorder per patient history. 5. Rule out alcohol use disorder. 6. Nicotine dependence Current Diagnoses:: 1. Bipolar disorder, NOS F31.9. 2. Borderline personality disorder. 3. Generalized anxiety disorder. 4. Rule out attention deficit disorder per patient history. 5. Rule out alcohol use disorder. 6. Nicotine dependence Patient's Response to Treatment:: Pt has responded well to treatment AEB pt's consistent attendance, contributions during group discussions and completion of homework outside treatment environment. Status of Current Problems and Symptoms: Ongoing problems. Pt continuing to struggle with depressive and anxious symptoms. Pt's current relationship and other psychosocial stressors seem to be impacting her mood and treatment. Problem #1 Problem Name:: Depression Status of Goals:: obj 1 - partially met, ongoing work encouraged. Pt is able to identify healthy coping skills like opposite action, challenging negative thoughts, and looking for daily positives. Pt struggles with consistently applying those skills in the moment. obj 2 - not met, ongoing work encouraged. Per pt's DSM 5 cross cutting measure pt's depression score decreased by 14% compared to her intake scores. Pt does report some improvement with being able to get chores and other things done, which she wasn't doing prior to IOP. Team Recommendations:: Team recommends pt continue current goals and objectives with focus on helping pt with consistent application of skills. Problem #2 Problem Name:: Anxiety Status of Goals:: obj 1 - partially met, ongoing work encouraged. Pt is able to identify calming skills like belly breathing, progressive muscle relaxation, and grounding tools. Pt struggles with consistently applying those skills in the moment. obj 2 - not met, ongoing work encouraged. Per pt's DSM 5 cross cutting measure pt's anxiety score has stayed the same as when she started IOP. Team Recommendations:: Team recommends pt continue current goals and objectives with focus on helping pt with consistent application of skills.
--- NOTE | 2021-09-07 15:55 | BH.MDN ---
Multi-Disciplinary Note - Note 30-min Individual Time Started:: 11:30 Date: 09/07/21 Purpose of session/treatment goals addressed:: Purpose of session was to address goal 1 from MTP and review treatment plan at mid-point. Eye Contact:: Fair Motor Activity:: Appropriate Appearance:: Casual Speech:: Appropriate Mood:: Euthymic, Anxious Affect:: Constricted Thoughts:: Linear, No evidence of hallucinations/delusions noted Staff Interventions:: psychoeducation on: - edmondson mind, CBT techniques, mindfulness skills - 5 senses, strengths perspective, reviewed DSM-5, other - reviewed healthy coping skills Client Response:: Pt reported she has noticed decreased depression and anxiety. Pt stated having structure/routine is helpful because has something to look forward to doing and decreases anxiety since knows what she is doing. Client stated she does still struggle with not having motivation to do things but has been using opposite action. Client stated got into an arguement with her boyfriend because she shared she had a crush on one of her best friends. Client reported she didn't think he'd be upset because last summer they were in a 3 person relationship and he was okay with it then. Client reported her boyfriend shut down and wouldn't talk to her about it. client stated she struggles when he shuts down because she says hurtful things to him because she's angry. Recognized this only makes the situation worse. Client connected with mindfulness skills like 5 senses to help her stay calm in the moment. Client able to identify skills learned through group and individual that she can also use. Client reported wanting to improve her communication skills with her boyfriend and take a break when she gets too angry. Risks/Concerns:: Client has chronic passive thoughts of . Denies suicidal ideation, plan or intention to date. future focused. Progress Toward Goals/Plan:: Progress noted with pt reporting decreased depression and anxiety. Pt is improved daily functioning and using healthy coping skills more consistently. Pt struggles with emotion regulation when boyfriend won't communicate, but has created plan with therapist to help if this situation were to arise again. Pt is to continue IOP to continue use of healthy coping, challenge distorted thoughts and prevent decompensation. Time Stopped:: 12:00
--- NOTE | 2021-09-12 09:00 | BH.SGPN.GN ---
Behaviors/Verbalizations/Mental Status: [] Eye contact is good. Motor activity is appropriate. Appearance is casual. Speech is Appropriate. Mood is dysthymic and anxious. Affect is congruent. Thoughts are linear and logical. No evidence of psychosis. Reviewed daily check in sheet and no reports of suicidal ideations or intent. Client Response/Progress/Benefit: [] Pt was an active participant in group discussion. Attentive. Provided appropriate feedback. Pt reported mental health positive as getting out of bed this morning despite wanting to stay home. 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 Pt stated she used skills at the democrat because started to have negative thoughts when not many people showed up. Pt stated she challenged her negative thoughts about rejection. Pt reported current stressor is getting into a fight with her boyfriend and not being able to resolve the issue. Pt reported her boyfriend will shut down during an argument and not talk to her. Progress noted as pt was able to work through negative thoughts. Benefited from group support, feedback, and encouragement. Will continue in IOP to continue use of healthy coping skills, challenge negative thoughts, and prevent decompensation.
--- NOTE | 2021-09-12 10:05 | BH.SGPN.GN ---
Behaviors/Verbalizations/Mental Status: []Client alert and oriented, casually dressed and groomed. Eye contact good. Motor activity appropriate. Speech within normal limits. Affect congruent, mood anxious. Thoughts linear, logical, no signs of hallucinations or delusions. Client Response/Progress/Benefit: []Client responded well to session AEB sharing and listening attentively to others. Client participated in experiential activity illustrating resilience and provided insight during group processing. Client participated in group discussion defining resilience and where it comes from, with client contributing that resilience is developed from past experiences. Clinician provided psychoeducation on the road to resilience, and introduced how making connections with others can help build resilience. Client was attentive throughout group sharing examples of benefits of making connections, taking notes throughout. Appeared to benefit from increased knowledge of resilience. Will continue IOP treatment to increase anxiety management skills and decrease rumination to improve daily functioning. Narrative Note: []
--- NOTE | 2021-09-12 11:15 | BH.SGPN.GN ---
Behaviors/Verbalizations/Mental Status: []Client alert and oriented, casually dressed though grooming appears disheveled. Eye contact good. Motor activity appropriate. Speech within normal limits. Affect congruent, mood anxious and depressed. Thoughts linear, logical, no signs of hallucinations or delusions Client Response/Progress/Benefit: []Client responded well to session AEB listening and contributing to group discussion, taking notes, and providing suggestions throughout. Client participated small group discussion of how each resiliency component can help increase personal resiliency. Worked cooperatively with group to identify strategies to enhance each of the components discussed. Client identified doing well with the resilience component of ?self-awareness?. Went on to reflect wanting to improve in the personal resilience component of ?take decisive action?. Client stated she wants to work on this by more actively following through with small daily goals and taking steps to talk with her supports about her goals and mental health needs as well. Client seemed to benefit from discussing strategies for improving personal resilience. Will continue IOP tx to prevent decompensation, continue to promote consistent application of healthy coping skills, and continue to maintain mood stability. Narrative Note: []
--- NOTE | 2021-09-14 09:00 | BH.SGPN.GN ---
Behaviors/Verbalizations/Mental Status: []Eye contact is good. Motor activity is restless, fidgety. Appearance is casual. Speech is appropriate. Mood is anxious. Affect is congruent. Thoughts are linear and logical. No evidence of psychosis. Reviewed daily symptom tracker sheet with no reports of suicidal ideations, plan, or intent. Client Response/Progress/Benefit: []Client was engaged throughout group session, sharing and listening attentively to others. Client reported her emotion as ?apprehensive?. Client discussed feeling nervous as she plans to ask her grandparents for financial help and they are not supportive of mental health. Client appeared to benefit from group discussion of framing the conversation around how IOP is helping her reach her goals. Client stated that she got into a fight with her boyfriend but was able to be assertive with her communication, which she identified as a win. Client also used opposite action to come to group today. Progress noted AEB client report of increased assertiveness. Will continue IOP treatment to continue increasing healthy communication skills and application of self-care to improve daily functioning. Narrative Note: []
--- NOTE | 2021-09-14 10:10 | BH.SGPN.GN ---
Behaviors/Verbalizations/Mental Status: []Client alert and oriented, casually dressed and groomed. Eye contact good. Motor activity appropriate. Speech within normal limits. Affect constricted, mood anxious. Thoughts linear, logical, no signs of hallucinations or delusions. Client Response/Progress/Benefit: []Client engaged during session AEB client contributing thoughts throughout discussion and completing worksheet. Connected with discussion on crisis and how coping with external crises by using unhealthy coping skills could result in a personal crisis. Group reflected on the importance of having awareness of personal warning signs to prevent reaching crisis point. Group identified potential warning signs for crisis and client completed the personal warning signs worksheet. Client identified personal crisis warning signs to include: loss of interest, crying more frequently, and mood swings and lashing out. Client benefited by increasing awareness of what leads to crisis and personal warning signs. Client will continue IOP tx to increase emotional regulation skills, improve self-care, and increase the use of healthy coping skills. Narrative Note: []
--- NOTE | 2021-09-14 11:10 | BH.SGPN.GN ---
Behaviors/Verbalizations/Mental Status: []Client alert and oriented, casually dressed and groomed. Eye contact fair. Motor activity restless. Speech within normal limits. Affect constricted, mood dysthymic. Thoughts linear, logical, no signs of hallucinations or delusions. Client Response/Progress/Benefit: []Client responded well to session as evidenced by client listening attentively to others and providing strategies during small group discussion. Connected as fellow participants discussed the importance of identifying and addressing personal warning signs. Client identified warning signs for crisis and gained further awareness of earliest warning signs. Client created a crisis action plan to help client better manage warning signs for crisis. Client?s action plan for lashing out includes: walk away, STOPP technique, breathing, physically step back, healthy physical release, and take walk with dog. Client appeared to benefit from creating a crisis action plan and increasing self-awareness. Client to continue IOP tx to continue use of healthy coping, challenge distorted thoughts and prevent decompensation.
--- NOTE | 2021-09-15 09:00 | BH.SGPN.GN ---
Behaviors/Verbalizations/Mental Status: [] Eye contact is good. Motor activity is appropriate. Appearance is casual. Speech is Appropriate. Mood is euthymic. Affect is full. Thoughts are linear and logical. No evidence of psychosis. Reviewed daily check in sheet and pt reported 2/5 for suicidal thoughts and 2/5 for intent. This is actually below pt's baseline. Client Response/Progress/Benefit: [] Pt was an active participant in group discussion. Attentive. Provided appropriate feedback. I'm in a good mood today Shared that she went for a walk yesterday and was able to change a bad memory into a positive one. She elaborated more on this. Stressors is continued conflict with her BF. Pt reports that they are struggling with communicating effectively and shared with the group some of her frustrations. Group provided feedback and some different perspectives which was beneficial. Progress reported per pt report. Will continue in IOP to maintain safety, increased healthy coping, and improve functioning to return to work. Narrative Note: []
--- NOTE | 2021-09-15 11:10 | BH.SGPN.GN ---
Behaviors/Verbalizations/Mental Status: []Client alert and oriented, casually dressed and groomed. Eye contact good. Motor activity restless at times-shaking leg. Speech within normal limits. Affect constricted, mood euthymic. Thoughts linear, logical, no signs of hallucinations or delusions. Client Response/Progress/Benefit: []Client an active participant AEB providing input to discussion and participated in practicing calming skills. Attentive during psychoeducation on mindfulness coping skills and their impact on mental health wellness. The group worked together to brainstorm anxiety reduction strategies that were self-soothing and mind and body-based. Client reported they will practice the STOPP technique and use opposite action to talk with her boyfriend instead of avoiding. Client seemed to benefit from increased repertoire of anxiety reduction skills. Client will continue IOP tx to improve emotional regulation skills, reduce negative thinking, and increase self-care. Narrative Note: []
--- NOTE | 2021-09-15 15:13 | BH.MDN ---
Multi-Disciplinary Note - Note 45-min Individual Time Started:: 10:10 Date: 09/15/21 Purpose of session/treatment goals addressed:: Purpose of session was to address goals 1 and 2 from [facility]. Eye Contact:: Fair Motor Activity:: Appropriate Appearance:: Casual Speech:: Appropriate Mood:: Euthymic, Anxious Affect:: Congruent Thoughts:: Linear, Logical, No evidence of hallucinations/delusions noted Staff Interventions:: thought challenging, psychoeducation on: - conflict resolution, CBT techniques, mindfulness skills, strengths perspective, taught coping skills Client Response:: Client reported feeling positive this morning because she was able to get up early instead of rolling out of bed to come to [facility]. Client shared she did have the difficult conversation with her grandma about borrowing money which client stated went well and is relieving some financial stress for client. Client stated she is feeling nervous about starting back to work at [employer] because she's unsure if she could manage anxiety in the moment and deal with the added stress. Client reported she's also concerned about having to go back to [employer] on October 03. Client stated she feeling unsure about [employer] school but feels like she needs to complete it because her family is financial supporting her schooling for this. Client stated she doesn't feel ready to return and doesn't have a lot of interest to get back into it. Client expressed some frustration with the conflict she had with her boyfriend. Client stated she gets frustrated because he will shut down when she brings up a discussion that he doesn't want to have and then she will start yelling at him out of frustration. receptive to conflict resolution skills and agreeable to walk away from him when he shuts down to prevent herself from screaming because then she feels guilty for that behavior. Therapist encourage client to express feelings to her boyfriend about the impact him shutting down has on their ability to manage conflict. When therapist brought up potential discharge in two weeks client expressed extreme anxiety about being done with [facility]. Client processed feelings and agreeable to reevaluate program progress and tentative discharge date next week. Risks/Concerns:: Client denies suicidal ideation, plan, or intention to date. Future oriented. Progress Toward Goals/Plan:: Progress noted with client reporting improved mood and ability to manage anxiety which helped her ask for help from her grandma. Client reported increase in anxiety which could be attributed to client worries about returning back to work and school. Client also expressed anxiety about discharging from IOP soon. Plan is for client to continue IOP in decrease anxiety, increase emotion regulation, and prevent decompensation. Time Stopped:: 10:50
== END 2021-09-15 23:59 | disposition home or self-care (01) ==
LOC: BHIOP 09:40
PROVIDERS: PCP Family Medicine; Referring Provider Psychiatry & Neurology Psychiatry; Visit Provider Psychiatry & Neurology Psychiatry
DX: F31.9 Bipolar disorder, unspecified (principal); F60.3 Borderline personality disorder; F41.8 Other specified anxiety disorders; F17.210 Nicotine dependence, cigarettes, uncomplicated; Z79.899 Other long term (current) drug therapy
CPT/HCPCS: S9480; 90832; 90834; 90837; 90853

== ENCOUNTER 2021-09-16 08:18 | Outpatient (RCR) | payer BC, SELFPAY ==
[2021-09-16 00:44] VITALS: BP 127/67; PULSE 97
--- NOTE | 2021-09-19 09:00 | BH.SGPN.GN ---
Behaviors/Verbalizations/Mental Status: []Pt alert and oriented, casually dressed and groomed. Eye contact fair. Motor activity appropriate. Speech within normal limits. Affect constricted, mood dysthymic. Thoughts linear, logical, no signs of hallucinations or delusions. Reviewed pt?s symptom tracker, no risk for suicidal ideation, plan, or intent as of 09/19/21. Client Response/Progress/Benefit: []Pt responded well to session, receptive to feedback from tierce filler. Pt reports feeling disconnected this morning as pt shared her stressor which was a recent argument with her boyfriend. Pt stated her friends helped pt realize that she is not as happy with her boyfriend as she used to be and pt shared this with her boyfriend while drunk. Pt acknowledged that talking about things with her boyfriend has not been helpful in the past. Pt encouraged to have a conversation with her individual therapist about plan and expectations with boyfriend moving forward. Pt's positive today include exercising over the weekend and helping her best friend use healthy coping skills. Appeared to benefit from processing stressors. Will continue IOP tx to promote mood stability and further improve overall functioning. Narrative Note: []
--- NOTE | 2021-09-19 10:13 | BH.SGPN.GN ---
Behaviors/Verbalizations/Mental Status: []Client alert and oriented, casually dressed and groomed. Eye contact good. Motor activity appropriate. Speech within normal limits. Affect congruent, mood anxious and euthymic. Thoughts linear, logical, no signs of hallucinations or delusions. Client Response/Progress/Benefit: []Pt engaged throughout AEB taking notes, listening attentively, and providing some input throughout. Attentive during psychoeducation and discussed the importance of goal-setting with the group. Pt indicated that goals ?can help break the depression cycle by giving you something to be proud of along the way?. Group identified potential benefits of having goals to include: they motivate, increase self-confidence, provide a sense of accomplishment, help you begin to create healthier habits, and provide a sense of purpose. Group also worked together to identify barriers to goal-setting which included; fear of failure, lack of motivation, depression, ?I don?t care attitude?, and lack of support from others. Pt identified personal barriers to include not managing her emotions in healthy ways and lack of motivation. Benefited from increased awareness of benefits and barriers to goal-setting. Pt will continue in IOP to prevent decompensation, increase healthy coping and communication with supports, as well as further improve daily functioning. Narrative Note: []
--- NOTE | 2021-09-19 11:10 | BH.SGPN.GN ---
Behaviors/Verbalizations/Mental Status: []Client alert and oriented, casually dressed and groomed. Eye contact fair. Motor activity appropriate. Speech within normal limits. Affect congruent, mood irritable. Thoughts linear, logical, no signs of hallucinations or delusions. Client Response/Progress/Benefit: []Pt was an active participant in group discussions and activities. Engaged in activity. Pt identified a SMART goal for the next week is to: take three showers by this Sunday. Pt reported this would benefit her by feeling better, taking time to care for self, and facing her fears of being alone. Identified forgetting, apathy, procrastination, negative thoughts, and self-doubt as potential barriers to completing this goal. Pt able to identify several solutions, such as phone reminders, reminding self of consequences, setting small daily goals, and self-talk, that can help overcome identified barriers. Benefited from group by being able to utilize SMART educate to create a goal. Pt to continue IOP to continue use of healthy coping skills, challenge distorted thoughts and prevent decompensation.
--- NOTE | 2021-09-21 10:15 | BH.SGPN.GN ---
behaviors/Verbalizations/Mental Status: r[]Client alert and oriented, casually dressed and groomed. Eye contact fair. Motor activity restless. Speech within normal limits. Affect congruent, mood anxious. Thoughts linear, logical, no signs of hallucinations or delusions. Client Response/Progress/Benefit: []Client responded well to treatment AEB sharing and listening attentively to others. Client participated in group discussion defining taking action. Group identified barriers to taking action. Client attentive to psychoeducation and discussion about what symptoms and behaviors take control over functioning. Client identified: anxiety, depression, self-harm, poor boundaries as what takes control over their functioning too frequently. Client stated she would go to work and school if she took back control over those things. Client reported having a morning routine and using opposite action as things she is currently doing to help her feel better. Appeared to benefit from increased self-awareness and knowledge regarding examples and barriers to taking action. Will continue IOP treatment to continue improving healthy coping skills, challenge negative thoughts and prevent decompensation.
--- NOTE | 2021-09-21 10:27 | BH.MDN ---
Multi-Disciplinary Note - Note 30-min Individual Time Started:: 09:00 Date: 09/21/21 Purpose of session/treatment goals addressed:: Purpose of session was to address goals 1 and 2. Eye Contact:: Fair Motor Activity:: Appropriate Appearance:: Casual Speech:: Appropriate Mood:: Euthymic Affect:: Congruent Thoughts:: Linear, Logical, No evidence of hallucinations/delusions noted Staff Interventions:: thought challenging, CBT techniques, discharge planning, strengths perspective, goal setting Client Response:: Client reported last week she went on a hike with one of her best friends which she stated was enjoyable. Client stated she also went out friends over the weekend. Client shared she had a discussion with some of her friends about her current relationship and is realizing she's not truly happy with her boyfriend. Client stated she recognizes now she shouldn't have went home after drinking to have a discussion about her unhappiness with her relationship. Can't say yesterday she had a talk with her boyfriend about the things she said after drinking and was able to express that she doesn't feel like he loves her and that he doesn't put a lot of effort into their relationship. Client stated she felt like it was a really good discussion and her boyfriend is willing to make some changes to demonstrate that he truly does love her. Client is hopeful these changes will be beneficial for the relationship so it can succeed. Client stated she's returning to work on October 10 and is feeling anxious and excited. Client stated she thinks it would be helpful for her to get back to work but just as nervous it's not going to go well. Client reported she has been working on her morning routine and does feel like she's doing better which she hopes will be helpful when she returns back to work. Client stated her mood is also doing much better reporting less depression and stated she's only had one panic attack since starting IOP. Client reported she is feeling anxious about discharge from [facility] but does feel next week she will be ready. Therapist discussed with client the importance of creating a new routine to help fill in the time that she usually would be at [facility]. Client expressed this could be helpful for her. Risks/Concerns:: Client denies suicidal ideation, plan, or intention to date. Future oriented. Progress Toward Goals/Plan:: Progress noted with client reporting decreased depression, one panic attack since starting IOP, and improved morning routine. Client has been struggling on and off with her relationship, but stated after this last discussion is feeling better about her relationship. Client feeling less anxious and more confident about returning back to work. Plan is for client to discharge from IOP next week. Client feels ready and comfortable with this plan. Time Stopped:: 09:30
--- NOTE | 2021-09-21 11:13 | BH.SGPN.GN ---
Behaviors/Verbalizations/Mental Status: []Client alert and oriented, casually dressed and groomed. Eye contact good. Motor activity appropriate. Speech within normal limits. Affect congruent, mood euthymic. Thoughts linear, logical, no signs of hallucinations or delusions. Client Response/Progress/Benefit: []Client responded well to session, taking notes and participating in worksheet discussion. Client identified they want to take action on reducing depression by waking up one hour earlier than they normally wake up each day. Client shared she has been waking up 30 minutes earlier and finds it helpful. Identified setting alarms, asking her supports to old client accountable, and setting a consistent sleep/wake schedule as strategies that can help client follow through with the goal. Appeared to benefit from identifying a small goal to benefit mental health. Client to continue IOP to further improve mood stability, increase distress tolerance skills, and reduce negative thinking patterns. Narrative Note: []
--- NOTE | 2021-09-22 09:00 | BH.SGPN.GN ---
Behaviors/Verbalizations/Mental Status: [] Eye contact is good. Motor activity is appropriate. Appearance is casual. Speech is Appropriate. Mood is anxious. Affect is congruent. Thoughts are linear and logical. No evidence of psychosis. Reviewed daily check in sheet and no reports of suicidal ideations or intent. Client Response/Progress/Benefit: [] Pt was an active participant in group discussion on mindfulness and meditation. Attentive. Provided appropriate feedback. Daily symptom tracker notes 3/5 for depression and anger as well as 2/5 for anxiety. Emotion for today is optimistic. Mental health wins include self-care and spending time with positive support. Has plans to meet up with a friend this evening. Overall she reports being in a better mood however is less motivated to get things done. Believes that she is managing emotions and stress more effectively which is improving her functioning. Progress noted per pt report. Benefited from group support, encouragement, and feedback. Will continue in IOP to maintain gains, prevent decompensation, and improve functioning to return to work. Narrative Note: []
--- NOTE | 2021-09-22 10:11 | BH.SGPN.GN ---
Behaviors/Verbalizations/Mental Status: [] Client alert and oriented, casual dress, hygiene tended to. Eye contact good. Motor activity restless WNL. Speech within normal limits. Affect congruent, mood anxious. Thoughts linear, logical, no signs of hallucinations or delusions. Client Response/Progress/Benefit: [] Pt engaged in session as evidenced by pt listening to others and providing input throughout. Pt stated I struggle to accept my problems sometimes. Pt reported her negative thoughts and reliance on others opinions can be a barrier to addressing her problems directly. Pt recognized ignoring her problems or not communicating them with others often makes her situation worse. Pt worked cooperatively with peers during problem solving activity, able to work through problem by using A,B,C,D,E problem solving method. Pt seemed to benefit from learning about problem solving method and rehearsing problem solving skills in the moment. Pt to continue IOP level of care to continue to promote mood stability, increase utilization of healthy coping and communication skills, and prevent decompensation. Narrative Note: []
--- NOTE | 2021-09-26 09:00 | BH.SGPN.GN ---
Behaviors/Verbalizations/Mental Status: [] Eye contact is fair. Motor activity is restless. Appearance is casual. Speech is Appropriate. Mood is euthymic. Affect is congruent. Thoughts are linear and logical. No evidence of psychosis. Reviewed daily check in sheet pt reports a 2/5, with 5 being severe, for suicidal ideation and a 0/5 for suicidal intention. This is below pt's baseline. Client Response/Progress/Benefit: [] Pt was an active participant in group discussion. Attentive to others. Pt reported she has felt a little manic since because of increased motivation, less need for sleep, and increased energy. Pt noted mental health positive as getting her bedroom reorganized over the weekend. Pt reported additional menta health positives as working out and planning a movie night with friends. Pt reported current stressor is feeling extremely tired because she's coming down from her hypomania. Recognizes importance of pushing self to be productive still. Benefited from group support, encouragement, and feedback. Will continue in IOP to prevent decompensation, continue use of healthy coping skills and challenge negative thoughts.
--- NOTE | 2021-09-26 10:07 | BH.SGPN.GN ---
Behaviors/Verbalizations/Mental Status: []Client alert and oriented, casually dressed and groomed. Eye contact good. Motor activity restless. Speech within normal limits. Affect congruent, mood anxious. Thoughts linear, logical, no signs of hallucinations or delusions. Client Response/Progress/Benefit: []Client responded well to session AEB sharing and listening attentively to others. Client provided insight throughout group discussion of barriers and benefits of change, including positive changes like buying a new house and barriers including negative self talk. Client participated in experiential activity illustrating the emotions that go along with making change, and how they can be both positive and negative, providing insight throughout group processing. Clinician provided psychoeducation on the cognitive triangle, discussing how thoughts, emotions and behaviors are connected. Appeared to benefit from increase knowledge of the benefits and barriers to making change, as well as how emotions are affected by change. Will continue IOP treatment to continue increasing anxiety management skills and decrease rumination to improve daily functioning. Narrative Note: []
--- NOTE | 2021-09-26 11:10 | BH.SGPN.GN ---
Behaviors/Verbalizations/Mental Status: []Client alert and oriented, disheveled appearance. Eye contact good. Motor activity appropriate. Speech within normal limits. Affect constricted, mood euthymic. Thoughts linear, logical, no signs of hallucinations or delusions. Client Response/Progress/Benefit: []Client responded well to session, attentive. Did well to process activity and work with group to relate the strategies used to overcome barriers in the activity to managing change in own life. Client identified a change they would like to make as increasing exercise to more than once a week. Client reports barriers to change as lack of motivation and ?plateauing.? Client set a goal of writing out adding one more day of exercise by using opposite action and reminding herself of the good feeling after working out. Appeared to benefit from identifying a small goal to work towards. Client will continue IOP tx to reduce negative thinking patterns, improve self-care, and further increase the use of healthy coping skills. Narrative Note: []
--- NOTE | 2021-09-28 08:54 | BH.SGPN.GN ---
Behaviors/Verbalizations/Mental Status: []Pt alert and oriented, casually dressed and groomed. Eye contact good, motor activity appropriate, speech within normal limits. Affect, congruent. Mood, euthymic and anxious. Thoughts linear, logical, no signs of hallucinations or delusions. Reviewed pt's daily symptom tracker, SI indicated as 1/5 which is consistent with baseline, denies any plan or intent at this time. Client Response/Progress/Benefit: []Pt responded well to session, engaged and positive. Pt reports feeling optimistic this morning as pt feels like she is making progress on her life and IOP goals. Pt shared she is doing well to complete small daily tasks around the house which has also contributed to a sense of accomplishment and increased motivation. Discussed plans to go to the gym with her mom kate as well. Reports current stressor as transitioning back to working and going to school full-time but reports having a plan for this so that she is able to maintain balance and continue to work on her mental health as well. Appeared to benefit from reflecting on her growth and use of skills. Will continue IOP tx to reinforce healthy coping skills and promote mood stability. Narrative Note: []
--- NOTE | 2021-09-28 10:00 | BH.SGPN.GN ---
Behaviors/Verbalizations/Mental Status: []Client alert and oriented, casually dressed and groomed. Eye contact good. Motor activity restless, twitchy. Speech within normal limits. Affect congruent, mood anxious. Thoughts linear, logical, no signs of hallucinations or delusions. Client Response/Progress/Benefit: []Client responded well to session AEB listening attentively to others. Client nodded and took notes throughout group discussion defining pitfalls and psychoeducation on internal and external triggers to pitfalls. Client participated in experiential activity illustrating how easy it is to fall into pitfalls when we are unaware of them. Client appeared anxious throughout, but was able to use calming skills to continue aiding the group in successfully completing the activity. Appeared to benefit from increased knowledge of pitfalls and their triggers. Will continue IOP treatment to continue increasing mood stability and anxiety management skills to improve daily functioning Narrative Note: []
--- NOTE | 2021-09-28 11:05 | BH.SGPN.GN ---
Behaviors/Verbalizations/Mental Status: []Pt alert and oriented, casually dressed and groomed. Eye contact good. Motor activity appropriate. Speech within normal limits. Affect constricted, mood irritable and anxious. Thoughts linear, logical, no signs of hallucinations or delusions. Client Response/Progress/Benefit: []Pt receptive of session, engaged throughout AEB pt actively listening and contributing to discussion, as well as taking notes. Pt completed worksheet identifying personal pitfalls impacting mental health progress. Pt identified the following pitfalls: using unhealthy coping skills, ruminating, catastrophizing, and focusing more on others? needs. Group learned different coping skills to help manage pitfalls. Pt selected the following coping skills to help with pitfalls: focusing on what is realistic, verbalizing a need for a break, and catching herself in moments of anger. Benefited from identifying personal pitfalls and strategies to overcome these pitfalls. Will continue IOP tx for one more day to reinforce healthy coping skills and establish aftercare. Narrative Note: []
--- NOTE | 2021-09-29 09:00 | BH.SGPN.GN ---
Behaviors/Verbalizations/Mental Status: [] Eye contact is good. Motor activity is appropriate. Appearance is casual. Speech is Appropriate. Mood is euthymic. Affect is full. Thoughts are linear and logical. No evidence of psychosis. Reviewed daily check in sheet and no reports of suicidal ideations or intent. Client Response/Progress/Benefit: [] Pt was an active participant in group discussion. Attentive. Provided appropriate feedback. Emotion for today is Eager. Shared that today is her last day in [facility]. Mental health wins included painting with support and that she completed the IOP program. Stressors include going back to work and school. Group had a discussion and provided feedback on responding to questions from co-workers regarding her reason for being away. Pt was able to utilize suggestions to come up with a response which was comfortable. Shared that IOP was helpful and she learned the most for the groups on anxiety and cognitive distortions. Benefited from group support, encouragement, and feedback. Will be discharged from [facility] today. Narrative Note: []
--- NOTE | 2021-09-29 10:05 | BH.SGPN.GN ---
Behaviors/Verbalizations/Mental Status: []Client alert and oriented, casually dressed and groomed. Eye contact good. Motor activity appropriate. Speech within normal limits. Affect congruent, mood anxious. Thoughts linear, logical, no signs of hallucinations or delusions. Client Response/Progress/Benefit: []Client responded well to session AEB sharing and listening attentively to others. Client participated in group discussion defining boundaries, providing a personal example. Group discussed the importance of healthy boundaries, with client stating that healthy boundaries reduce exposure to triggers and prevent unnecessary stress. Client listened attentively throughout psychoeducation on the types of boundaries, including physical, emotional, and intellectual. Client was engaged throughout group members providing personal examples of each type. Client appeared to benefit from increased knowledge of the types of boundaries and increased self-awareness of personal boundaries.Will discharge from IOP tx as client has accomplished her tx goals and no longer meets criteria for IOP level of care. Narrative Note: []
--- NOTE | 2021-09-29 10:59 | BH.DS ---
Discharge Summary - Demographics Date of Admission:: 08/16/21 Discharge Date: 09/29/21 Presenting Problems at Admission:: Patient reports worsening symptoms of depression for the past 6 months to the point where it becomes hard for her to complete her activities of daily living. She currently works at [employer] for the past 4 months but has been frequently calling off work due to the severity of her mental health symptoms and she last worked 1 week ago. She endorses feeling down and having crying episodes. She has low motivation, hopelessness, worthlessness, guilt, anhedonia, decreased appetite, low energy and decreased concentration. She admits to fleeting, passive suicidal ideation. She admits to thoughts of self-harm by tattooing and cutting. She has passive thoughts that she would not care if she . She denies active suicidal ideation, plan for suicide, homicidal ideation, hallucinations, delusions or current symptoms of khushi Discharge Diagnoses:: 1. Bipolar disorder, NOS F31.9. 2. Borderline personality disorder. 3. Generalized anxiety disorder. 4. Rule out ADD per patient history. 5. Rule out alcohol use disorder. 6. Nicotine dependence Reason for Discharge:: Pt has made significant treatment progress, improved daily functioning and no longer meets medical necessity for [facility] level of care. - Treatment Progress During Treatment & Response: Per pt's DSM 5 cross cutting measure at discharge scores indicate a 63% reduction in depression, 64% reduction in anxiety, 75% reduction in irritability, and an overall 76% reduction in symptoms compared to intake scores. Pt reports improved daily functioning with being able to complete ADL's. Pt will be returning to school next week and work in two weeks. Pt consistently attended IOP sessions and often was engaged in group discussions. Pt often followed through with homework from individual counseling sessions. Issues Still to be Addressed:: Pt could benefit from continued reinforcement of healthy coping skills, challenging distorted thought patterns and working through her borderline personality workbook. Pt recommended to go to grief counseling to help her process several recent losses. Discharge Recommendations/Instructions:: 1. Appointment with Mitchell Spencer through online platform [facility] for counseling on 10/03/21. 2. Appointment with Dr. Duron on 10/19/21 at 2pm. 3. [facility] Aftercare group program on 10/06/21 at 2pm. 4. Provided referral for outpatient grief counselor. Discharge Handout: Complete Discharge Handout with client on aftercare options and continuity of care.
--- NOTE | 2021-09-29 15:50 | BH.MDN ---
Multi-Disciplinary Note - Note 30-min Individual Time Started:: 11:05 Date: 09/29/21 Purpose of session/treatment goals addressed:: Purpose of session was to review treatment progress, identify strategies to help her maintain progress, and solidify aftercare plans. Eye Contact:: Fair Motor Activity:: Appropriate Speech:: Appropriate Mood:: Euthymic Affect:: Full Thoughts:: Linear, Logical, No evidence of hallucinations/delusions noted Staff Interventions:: discharge planning - reviewed maintenance plan and follow up plan with providers, strengths perspective, reviewed DSM-5 Client Response:: Client reported she's feeling nervous and excited about today being her last day in [facility]. Client reported she's been more motivated to clean her house and took some time to reorganize her bedroom. Client reported she is feeling more excited about returning to [facility]. Client stated she feels like her schedule for next week is manageable. Expressed some anxiety about the potential changes with staff and protocols. Client reported she's been able to notice progress since starting IOP. Client shared progress she's observed includes: improve motivation, improved healthy communication, improved relationship, decreased depression, and ability to manage anxiety more effectively. Client reported prior to IOP she used to lay around all day, call off school and work, and not accomplish ?anything?. Client feels like her functioning has improved it is more equipped to manage her work. Risks/Concerns:: Client denies suicidal ideation, plan, or intention to date. Progress Toward Goals/Plan:: Progress noted AEB client reporting decreased depression, improve mood regulation, increased healthy coping, ability to manage emotions more effectively, and improved communication. Client is scheduled to meet with individual therapist through [facility] on 10/13/21. Client has appointment with Dr. Duron on 10/19/21 at 2pm. Client to start [facility] Aftercare group program on 10/06/21 at 2pm. Client provided referral for outpatient grief counselor. Plan is for client to discharge from [facility] today. Time Stopped:: 11:35
== END 2021-09-29 13:32 | disposition home or self-care (01) ==
LOC: BHIOP 08:18
PROVIDERS: PCP Family Medicine; Referring Provider Psychiatry & Neurology Psychiatry; Visit Provider Psychiatry & Neurology Psychiatry
DX: Z00.00 Encounter for general adult medical examination without abnormal findings (principal)
CPT/HCPCS: S9480; 90832; 90853

== ENCOUNTER 2021-10-06 14:23 | Outpatient (RCR) | payer BC, SELFPAY ==
--- NOTE | 2021-10-06 14:00 | BH.SGPN.GN ---
Behaviors/Verbalizations/Mental Status: []Client alert and oriented, casual in appearance. Eye contact good. Motor activity appropriate. Speech within normal limits. Affect congruent. Mood euthymic, anxious. Thoughts linear, logical, no signs of hallucinations or delusions Client Response/Progress/Benefit: []Pt first day in aftercare program, responded well to session AEB providing input throughout and listening attentively to others. Pt reported current emotion as ?anxious? and attributes this in part to deciding to drop out of [employer] school and not knowing how to communicate that with her mother. Reports maintaining consistent outpatient therapy and is working to set up ongoing medication management appointments. Pt identified several coping skills she has been using over the past week to continue to manage mental health sx and maintain mood stability, which included: belly breathing, going to the gym, and thought challenging. Pt connected with self-reflection discussion. Worked with group to identify the benefits of self-reflection. Seemed to benefit from identifying how to incorporate self-reflection into life more often. Pt completed aftercare specific self-reflection activity and indicated she has seen improvements in overall ability to utilize her skills, hold herself accountable, and follow-through with appointments more consistently. Explained she would like to continue to focus on making improvements in ability to communicate difficult information with her supports rather than avoid hard conversations. Willing to complete weekly self-reflection assignment for homework. Pt to continue aftercare to maintain gains and prevent decompensation. Narrative Note: []
--- NOTE | 2021-10-06 14:41 | BH.MTP_ITS ---
Master Treatment Plan - Patient Information Program Physician:: Dr. Maddie Lainez Primary Therapist:: Arlin Shah [facility] - Psychiatric Diagnoses Psychiatric Diagnoses:: Bipolar disorder, NOS F31.9; Borderline personality disorder; Generalized anxiety disorder; Rule out ADD per patient history; Rule out alcohol use disorder; Nicotine dependence Diagnosis Code(s):: F31.9 - Estimated LOS Estimated LOS (in weeks):: 10 Problem/Goal #1 - Problem/Goal #1 Stated Goal:: client will maintain or see a reduction in symptoms AEB client score on the DSM 5 cross-cutting measure and improve client's daily functioning. - Objectives Objective #1 Stated Objective: Client will continue to consistently apply healthy coping skills to maintain progress made in IOP tx. Interventions: Through group therapy, client will review warning signs and triggers as well as healthy coping skills learned in IOP tx to successfully maintain gains while transitioning into outpatient therapy. Discharge Criteria: Client will have accomplished this goal when client's score on the DSM-5 cross-cutting measure has either maintained or reduced over a 10 week period. Target Date: 12/15/21 Review Date: 11/03/21 Status: open Objective #2 Stated Objective: Client will learn and utilize 2-3 maintenance strategies to prevent decompensation from original IOP DSM-5 scores. Interventions: Through group therapy, client will be provided with education on healthy maintenance behaviors, relapse prevention techniques, and healthy coping strategies. Discharge Criteria: Client will have accomplished this goal when can report using at least 2 maintenance skills to prevent decompensation compared to original IOP DSM-5 scores Target Date: 12/15/21 Review Date: 11/03/21 Status: open
--- NOTE | 2021-10-06 15:26 | BH.COMM ---
Communication Note - Communication with Client Communication Note: Pt presented today for relapse prevention group. Case discussed with Dr. Mahajan with plan to admit with dx of f31.9
== END 2021-10-15 23:59 | disposition home or self-care (01) ==
LOC: BHOG 14:23
PROVIDERS: PCP Family Medicine; Referring Provider Psychiatry & Neurology Psychiatry; Visit Provider Psychiatry & Neurology Psychiatry
DX: F31.9 Bipolar disorder, unspecified (principal)
CPT/HCPCS: 90853

== ENCOUNTER 2021-10-17 08:37 | Outpatient (RCR) | payer BC, SELFPAY ==
--- NOTE | 2021-10-20 14:00 | BH.SGPN.GN ---
Behaviors/Verbalizations/Mental Status: []Client alert and oriented, casual in appearance. Eye contact good. Motor activity appropriate. Speech within normal limits. Affect congruent. Mood euthymic and tired. Thoughts linear, logical, no signs of hallucinations or delusions Client Response/Progress/Benefit: []Pt responded well to session AEB pt openly sharing thoughts and feelings and completing worksheet. Pt completed the self-reflection sheet stating they have been taking medications consistently and she followed up with counseling and psychiatry this week. Pt also reports using coping skills such as deep breathing, setting boundaries, and using opposite action. Pt reports she was recently prescribed Adderall which is causing pt some anxiety because it can be addictive. Pt responded well to group discussion and review about self-care. Pt stated they will work on following self-care activities: playing with her dog, showering, meditating, hanging with family, walking, and singing and dancing. Pt seemed to benefit from support from peers and identifying self-care plan. Pt will continue IOP aftercare to promote gains and further increase mood stability. Narrative Note: []
--- NOTE | 2021-10-20 16:46 | BH.DS ---
Discharge Summary - Demographics Date of Admission:: 10/06/21 Discharge Date: 10/20/21 Presenting Problems at Admission:: Pt discharged from IOP tx and transitioned to IOP aftercare to maintain gains Pt made in IOP and to reinforce healthy coping skills. At admission to IOP aftercare, pt continued to report symptoms of depression, borderline personality disorder, and anxiety, but of reduced intensity. Pt was also experiencing the stress of figuring out the next step for her future, relationship issues, and ongoing family stress. Discharge Diagnoses:: Bipolar disorder, NOS F31.9; Borderline personality disorder; Generalized anxiety disorder; Rule out ADD per patient history; Rule out alcohol use disorder; Nicotine dependence Reason for Discharge:: Pt stopped attending IOP aftercare and her last day was 10/20/21. Pt discharged as pt did not follow the attendance requirement for the program. - Treatment Progress During Treatment & Response: Pt limited as pt attended IOP aftercare a few times. Pt self-reported she was taking medication as prescribed and she was following up with her outpatient counseling which was part of her IOP discharge plan. Issues Still to be Addressed:: Pt could benefit from continued reinforcement of healthy coping skills, challenging distorted thought patterns and working through her borderline personality workbook. Pt recommended to go to grief counseling to help her process several recent losses. Discharge Recommendations/Instructions:: Pt will follow up with Dr. Patel at [facility] for medication management. Pt see a therapist online through [facility] for individual counseling. Pt had also been given resources for grief counseling when she discharged from IOP tx. Discharge Handout: Complete Discharge Handout with client on aftercare options and continuity of care.
== END 2021-11-10 15:38 | disposition home or self-care (01) ==
LOC: BHOG 08:37
PROVIDERS: PCP Family Medicine; Referring Provider Psychiatry & Neurology Psychiatry; Visit Provider Psychiatry & Neurology Psychiatry
DX: F31.9 Bipolar disorder, unspecified (principal); F41.1 Generalized anxiety disorder; F17.200 Nicotine dependence, unspecified, uncomplicated; F60.3 Borderline personality disorder
CPT/HCPCS: 90853

== ENCOUNTER 2022-09-20 09:20 | Outpatient (RCR) | payer BC, SELFPAY ==
--- NOTE | 2022-09-20 09:00 | BH.SGPN.GN ---
Behaviors/Verbalizations/Mental Status: []Eye contact good, casually dressed, motor activity appropriate, speech normal rate and tone, mood depressed and anxious, congruent affect, thoughts linear and intact, no evidence of delusions or hallucinations. Reviewed pt's symptom tracker, pt suicidal ideation within established baseline, denies any plan or intent. Future oriented. Client Response/Progress/Benefit: []Pt first day in IOP tx. She responded well to session, attentive and willing to process with group. Identified current mental health win as making her mental health a priority and seeking treatment rather than allowing things to continue to get worse. Shared she is struggling with several different stressors, including the recent end of a long-term relationship. Pt noted wanting to work on ?relearning how to do things I enjoy and better manage my Borderline Personality Disorder?. Pt appeared to benefit from group suggestions, support, and encouragement. Recommended continued IOP tx to improve self-care, application og healthy coping skills, as well as prevent decompensation. Narrative Note: []
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
--- NOTE | 2022-09-20 11:10 | BH.SGPN.GN ---
Behaviors/Verbalizations/Mental Status: []Pt alert and oriented, neatly dressed and groomed. Eye contact good. Motor activity appropriate. Speech within normal limits. Affect congruent, mood calm. Thoughts linear, logical, no signs of hallucinations or delusions. Client Response/Progress/Benefit: []Pt responded well to session, contributing to discussion when prompted, and attentive throughout discussion. Pt identified a negative thought that has kept them stuck. Pt's thought was I?m not living up to my potential.? ?Pt reported when they think this way, pt acts ?slightly irate? or shuts down and feels worthless. Pt worked to reframe the thought by finding more rational, realistic ways to look at the thoughts and then processed within group setting. Pt reframed the thought to ?I haven?t lived my whole like and still have a chance to do better.? Pt appeared to benefit from practicing challenging negative thinking. Pt will continue IOP tx to prevent decompensation, increase distress tolerance skills, and improve daily functioning. ?? Narrative Note: []
[2022-09-20 11:40] VITALS: BP 129/71; PULSE 96
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
--- NOTE | 2022-09-20 12:48 | BH.DR.ITP ---
Initial Treatment Plan Patient Information Visit Information: ADMISSION DATE: EXPECTED LOS: 4-6 weeks Problems/Symptoms Problem #1:: Mood instability Symptom:: Sadness, extreme sensitivity to perceived rejection or abandonment, hopelessness, guilt, passive thoughts of , anhedonia, recent suicidal ideation, decreased concentration, erratic energy Problem #2:: Anxiety Symptom:: Worry, rumination, panic attacks, avoidance
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
--- NOTE | 2022-09-25 09:05 | BH.SGPN.GN ---
Behaviors/Verbalizations/Mental Status: [] Eye contact good. Motor activity appropriate. Speech within normal limits. Affect congruent, mood anxious and euthymic. Thoughts linear, logical, no signs of hallucinations or delusions. Reviewed client?s symptom tracker, no risk for suicidal ideation, plan, or intent as of 09/25/2022. Client Response/Progress/Benefit: [] Client responded well to session, attentive and willing to process with group. Identified current mental health win as successfully regulating emotions when getting into a heated debate with her mom. Current stressor noted as financial stressors and stressors that come along with living with her ex-boyfriend. Client shared how there is a of of unknowns with what is right or not with co-living and trying to navigate that successfully. Client appeared to benefit from group support and encouragement. Recommended continued IOP tx to continue to increase overall functioning, promote mood stability, as well as increase overall functioning. Narrative Note: []
--- NOTE | 2022-09-25 10:10 | BH.SGPN.GN ---
Behaviors/Verbalizations/Mental Status: [] Eye contact is good. Motor activity is appropriate. Appearance is casual. Speech is Appropriate. Mood is anxious/irritable. Affect is congruent. Thoughts are linear and logical. No evidence of psychosis. Client Response/Progress/Benefit: [] Pt was an active participant in group discussion. Attentive during psychoeducation on fixed mindset. Participated during interactive discussions in which group worked together to define 'fixed mindset'. Descriptors identified included; only one way of seeing things, absolute thinking, not compromising, and believing that nothing could change. Participated in further discussion on the negatives that result from a 'fixed' mindset which are; emotional dysregulation, decreased confidence in oneself, feeling 'stuck', feelings of worthlessness, hopelessness, and 'giving up'. Benefited from increased understanding of 'fixed' mindset and its impact on mental health. Will continue in IOP to maintain safety, prevent decompensation/re-admission to psych unit, and to improve functioning to return to work. Narrative Note: []
--- NOTE | 2022-09-25 11:10 | BH.SGPN.GN ---
Behaviors/Verbalizations/Mental Status: []Pt alert and oriented, disheveled appearance. Eye contact good. Motor activity appropriate. Speech within normal limits. Affect congruent, mood euthymic. Thoughts linear, logical, no signs of hallucinations or delusions. Client Response/Progress/Benefit: []Pt engaged during activity and discussion AEB providing some input, connecting with peers, as well as taking notes throughout. Pt did well to engage as group worked on identifying characteristics and benefits of adopting a growth mindset. Worked with fellow participants in reframing the example fixed thoughts into growth mindset thoughts. Reframed personal fixed thought of ?I?m a bother to people in my life? with growth mindset thought of ?I?m not responsible for other people?s boundaries.? Benefitted from discussing benefits of growth mindset and brainstorming strategies for prompting growth-mindset. Pt did well in small group to challenge own thoughts and help peers. Pt will continue IOP tx to prevent decompensation, increase distress tolerance skills, and improve overall functioning. Narrative Note: []
--- NOTE | 2022-09-26 09:38 | BH.MDN_ITS ---
Multi-Disciplinary Note - Note 45-min Individual Time Started:: 08:50 Date: 09/26/22 Purpose of session/treatment goals addressed:: To address tx plan goal #2 and identify healthy strategies for coping with stress/disappointment in order to reduce alcohol consumption. Eye Contact:: Good Motor Activity:: Appropriate Appearance:: Casual Speech:: Appropriate Mood:: Anxious Affect:: Congruent Thoughts:: Linear, Logical, No evidence of hallucinations/delusions noted Staff Interventions:: thought challenging, motivational interviewing, psychoeducation on: - harms reduction, goal setting - goals to reduce etoh use, taught coping skills Client Response:: Pt receptive of session, engaged throughout. Reports feeling ?on edge? and anxious this morning. Provided insight that her ex-boyfriend stayed at the house for the first time in several days which may be contributing to feeling increased anxiety/emotional discomfort. Shared her primary source of anxiety however is an upcoming conversation with her employer. Pt was recently denied short-term disability and plans to speak with her employer about the possibility of taking an unpaid medical leave of absence. Shared she has been avoiding this conversation, but feels she is no longer able to do so as she had only been written off work until today, following inpatient psychiatric tx. Shared fears that her employer will deny pt?s request or fire her for missing work. Pt shared she has several documents stating she is in the IOP program, but fears this will not be enough. Receptive of discussion reviewing strategies for approaching potential conflict and difficult situation, as well as ways for managing associated anxiety. Reports reflecting on what she wants to say, reminding herself that she has alternate options should the conversation not go as planned, and using grounding skills may aid in pt?s ability to follow- through. Shared that in the past she would cope with the stress of the conversation by either drinking immediately after or ?excessively vape?. P rovided insight that she uses these coping behaviors to numb and avoid dealing with her emotions as a result. Discussed beliefs that she has been relying more heavily on substance use, specifically alcohol, in the past few weeks and does not like the situations she has found herself in or how she feels as a result. Identified a desire to cut back on alcohol consumption, but is unsure as to how she might do so. Disclosed drinking every day in the past week and identified struggling most when feeling uncomfortable, bored, or not knowing what to do. Worked with therapist to identify healthy alternatives to cope with the potential outcomes of her conversation with her employer. Identified plans to take deep breaths, put on her favorite playlist and roll down the windows in her car, and call a friend to decompress following the conversation. Plans to knit and talk with a friend about her plans to reduce drinking the afternoon to help hold herself accountable. Identified a personal goal of reducing alcohol use to no more than 2x a week. Receptive of reviewing strategies for reducing use. Risks/Concerns:: Denies SI, plan, or intent as of 09/26/22. Future oriented, protective factors noted. Progress Toward Goals/Plan:: Progress noted with pt reporting increased insight into current behaviors impeding consistent progress and reports motivation to change these. Pt shared a desire to pursue sobriety which is progress, as well as insight into her own safety behaviors and distortions maintaining anxiety and work avoidance. Pt reports ongoing anxiety about her future and ability to make healthy independent choices. Continues to live in an environment maintaining feelings of discomfort, and reinforcing depressive sx. Pt continuing to use opposite action, thought challenge and trying to make healthy SMART goals for herself. Pt to continue IOP to increase healthy coping, challenge distorted thoughts and prevent decompensation. Time Stopped:: 09:35
--- NOTE | 2022-09-26 10:12 | BH.SGPN.GN ---
Behaviors/Verbalizations/Mental Status: []Client alert and oriented, casually dressed and groomed. Eye contact good. Motor activity appropriate. Speech within normal limits. Affect congruent, mood anxious. Thoughts linear, logical, no signs of hallucinations or delusions. Client Response/Progress/Benefit: []Client receptive of session, actively engaged throughout AEB taking notes and provided input and examples to discussion. Appeared to connect with group topic of cognitive distortions and the impact of thought patterns on mental health, coping behaviors, and relationships. Reflected that she personally tends to struggle with distortions of all or nothing thinking and catastrophizing. Noting this has resulted in avoidance behaviors in the past. Client appeared to benefit from gaining insight on distorted thinking patterns and how this impacts overall mental health. Progress noted in client report of improved insight and ability to combat distortions with alternative positive thoughts. Will continue IOP tx to reduce anxiety and depression, continue to promote healthy decision making, and increase overall functioning. Narrative Note: []
--- NOTE | 2022-09-26 11:15 | BH.SGPN.GN ---
Behaviors/Verbalizations/Mental Status: []Eye contact is fair to good. Motor activity is appropriate. Appearance is casual. Speech is WNL. Mood is anxious and euthymic. Affect is congruent. Thoughts are linear and logical. No evidence of psychosis. Client Response/Progress/Benefit: []Pt engaged participant AEB providing input during small group discussion and engaging in activity. Activity involved working with peers to answer questions related to psychoeducation on cognitive distortions and practicing reframing distorted thoughts. Pt collaborated with the group to determine the answers. Identified cognitive distortions struggles with the most as overgeneralization, jumping to conclusions, and mental filter. Able to connect impact distortions has on her mental health. Benefited from rehearsing ways to challenge/reframe cognitive distortions and by gaining increased insight into examples/definitions of 10 most common cognitive distortions. Will continue in IOP to stabilize moods, challenge negative thoughts, and prevent decompensation.
--- NOTE | 2022-09-28 09:05 | BH.SGPN.GN ---
Behaviors/Verbalizations/Mental Status: [] Eye contact is good. Motor activity is appropriate. Appearance is disheveled. Speech is Appropriate. Mood is anxious/irritable. Affect is congruent. Thoughts are linear and logical. No evidence of psychosis. Reviewed daily check in sheet and pt reports 2/5 for suicidal thoughts and 0/5 for intent. This is baseline. Client Response/Progress/Benefit: [] Pt was an active participant in group discussion. Attentive. Daily symptom tracker notes 2/5 for depression, 3/5 for anxiety, and 4/5 for anger. Also reports 1/5 for self-harm urges. Pt reports being frustrated and stressed. Triggers are related to her new relationship as well as her ex-bf. Share with the group the stressful events and her thoughts about the events. Ruminating considerably and is struggling to challenge negative thoughts and cognitive distortions. Reports increased anger which is impacting her depression and overall functioning. Benefited from group support, encouragement, and feedback. Will continue in IOP to prevent decompensation/re-admission to psychiatric unit, maintain safety, and to increase functioning to return to work. Narrative Note: []
--- NOTE | 2022-09-28 10:10 | BH.SGPN.GN ---
Behaviors/Verbalizations/Mental Status: []Pt alert and oriented, casually dressed and groomed. Eye contact good. Motor activity appropriate. Speech within normal limits. Affect congruent, mood anxious and agitated. Thoughts linear, logical, no signs of hallucinations or delusions. Client Response/Progress/Benefit: []Pt was an active participant during interactive group discussions. Attentive during psychoeducation on the six types of boundaries. Pt along with peers contributed to interactive discussion on defining what a boundary is and group identified challenges to setting boundaries which included; difficulties communicating, fear of hurting someone?s feelings, and fear of being a burden or asking for ?too much?. Group reviewed the 6 types of boundaries. Pt provided personal examples of what a violation of emotional boundaries might look like, indicating ?when my mom dismisses how I tell her I?m feeling? as an example. Pt benefited from increased awareness and insight on the importance/benefit to setting health boundaries. Will continue IOP tx to prevent decompensation, improve daily functioning, and reduce unhealthy coping patterns. ? Narrative Note: []
--- NOTE | 2022-09-28 11:15 | BH.SGPN.GN ---
Behaviors/Verbalizations/Mental Status: []Pt alert and oriented, casually dressed and groomed. Eye contact good. Motor activity appropriate. Speech within normal limits. Affect congruent, mood anxious. Thoughts linear, logical, no signs of hallucinations or delusions. Client Response/Progress/Benefit: []Pt responded well to session AEB listening attentively to peers and providing input. Pt attentive during psychoeducation on the different boundary styles. Pt reported she struggles with being either rigid or porous. Pt stated she realizes that being porous leads to pt getting taken advantage of and being rigid makes me seem like a bitch. Pt was given a handout on strategies for healthy boundary setting. Appeared to benefit from increasing insight to boundary setting and the impacts on mental health. Seemed to benefit from increased awareness of boundary styles and strategies to improve setting boundaries. Will continue IOP tx to increase healthy coping skills to replace unhealthy coping skills, reduce negative thinking, and improve daily functioning. Narrative Note: []
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
--- NOTE | 2022-09-29 10:00 | BH.SGPN.GN ---
Behaviors/Verbalizations/Mental Status: [] Eye contact is good. Motor activity is appropriate. Appearance is disheveled. Speech is Appropriate. Mood is anxious/irritable. Affect is congruent. Thoughts are linear and logical. No evidence of psychosis. Client Response/Progress/Benefit: [] Pt was an active participant in group discussions and experiential activity. Attentive during psychoeducation. Participated during interactive discussions on unhealthy ways to manage emotions which included; substance abuse, self-harm, risky behaviors, isolation, lashing out at others, or sleeping excessively. Pt and peers identified consequences to unhealthy coping skills which included; relationship conflict, shelter, hospitalization, rehab, shame, guilt, loss of job, etc. Group participated in discussion on the impact that intense emotions can have on communication which included; verbal vomit, not communicating effectively, resentments, over-sharing, dishonesty, yelling, anger outbursts, and relationship struggles. Engaged in experiential activity and able to relate activity to psychoeducation. Benefited from increased awareness of how the impact that emotions can have on communication. Will continue in IOP to maintain safety, prevent decompensation/re-admission, and to improve functioning to return to work. Narrative Note: []
--- NOTE | 2022-09-29 11:10 | BH.SGPN.GN ---
Behaviors/Verbalizations/Mental Status: []Client alert and oriented, casually dressed and groomed. Eye contact good. Motor activity appropriate. Speech within normal limits. Affect congruent, mood euthymic. Thoughts linear, logical, no signs of hallucinations or delusions. Client Response/Progress/Benefit: []Client engaged in session AEB client listening attentively to peers and providing input. Attentive during psychoeducation on 4 zones of regulation. Client able to identify feelings and behaviors for each zone. Client identified coping skills one can use to support self in each zone. Client reports she can benefit from practicing opposite action, movement, and thought challenge. Benefited from increased education on zones of regulation or stages of alertness for emotions and healthy coping skills to use for each zone. Will continue IOP tx to stabilize moods, increase use of healthy coping, and prevent decompensation.
--- NOTE | 2022-10-02 09:00 | BH.SGPN.GN ---
Behaviors/Verbalizations/Mental Status: []Eye contact is good. Motor activity is appropriate. Appearance is disheveled. Speech is Appropriate. Mood is anxious. Affect is flat. Thoughts are linear and logical. No evidence of psychosis. Reviewed daily check in sheet and denies any active SI. Client Response/Progress/Benefit: []Pt responded well to session, attentive and engaged. Pt reports feeling panicked this morning as pt reports she was manic all weekend. Pt stated she did not really sleep until last night and pt got 12 hours of sleep then. Pt admits that over the weekend she engaged in impulse spending and now pt is anxious because her friend recently gave her money to help pt get out of debt. Pt shared there were positives from the weekend including spending time with friends and going for a hike. Group helped pt identify triggers to her manic episode and pt recognized that she has been consuming a lot of caffeine recently. Pt encouraged to reduce her caffeine intake. Pt will continue IOP tx to prevent decompensation, increase distress tolerance skills, and improve daily functioning. Narrative Note: []
--- NOTE | 2022-10-02 10:10 | BH.SGPN.GN ---
Behaviors/Verbalizations/Mental Status: []Pt alert and oriented, casually dressed and groomed. Eye contact good. Motor activity appropriate. Speech within normal limits. Affect congruent, mood anxious, euthymic. Thoughts linear, logical, no signs of hallucinations or delusions. Client Response/Progress/Benefit: []Pt receptive of group, participated in discussion and taking notes throughout. Group worked together to identify benefits of healthy relationships which included improves mental health, improved emotion regulation, increased sense of security, and a different perspective. Group identified factors that lead to unhealthy relationships which included trauma, lack of communication, unmanaged emotions, and lack of trust. Pt shared connecting with past negative experiences and difficulties regulating emotions as personal challenges to healthy relationships. Did well to participate, provide input and ideas, as well as actively listen to other?s during the activity. Benefited from increased insight and awareness of benefits of healthy relationships and factors that contribute to unhealthy relationships. Pt to continue IOP tx to further improve healthy coping skill repertoire and reduce impulsivity, promote mood stability, and prevent decompensation. ? Narrative Note: []
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
--- NOTE | 2022-10-03 09:05 | BH.SGPN.GN ---
Behaviors/Verbalizations/Mental Status: []Eye contact good, casually dressed, motor activity appropriate, speech normal rate and tone, mood euthymic and anxious, congruent affect, thoughts linear and intact, no evidence of delusions or hallucinations. Reviewed pt's symptom tracker, pt suicidal ideation within established baseline, denies any plan or intent. Future oriented. Client Response/Progress/Benefit: []Pt responded well to session, attentive and willing to process with group. Identified current mental health wins as spending time doing something creative with a friend the day before. Notes this was enjoyable and helped to improve pt overall mood for the day. Additional win noted as using opposite action to get up early enough to shower prior to IOP group. Expressed feeling accomplished and more motivated. Current stressor noted as plans to get lunch and create a budget with her stepfather this afternoon. Reports anxiety about disclosing the amount of debt she is in and fear of disappointing him. Pt did well to challenge these and appeared to benefit from supportive feedback and suggestions for discussing difficult topics with supports provided by the group. Recommended continued IOP tx to continue to improve healthy decision making, promote mood stability, as well as prevent decompensation. Narrative Note: []
--- NOTE | 2022-10-03 10:10 | BH.SGPN.GN ---
Behaviors/Verbalizations/Mental Status: []Pt alert and oriented, neatly dressed and groomed. Eye contact good. Motor activity appropriate. Speech within normal limits. Affect congruent, mood euthymic. Thoughts linear, logical, no signs of hallucinations or delusions. Client Response/Progress/Benefit: []Pt was an active participant in group discussions and activities. Attentive during psychoeducation. Pt engaged during interactive discussion in which the group defined self-care and discussed its benefits. ?Worked with peers in a small group to identify myths related to self-care which included; Self-care is expensive, self-care is selfish, not everyone deserves self-care, self-care means a person is weak, and self-care takes up too much time. Pt shared she is good with some areas of self-care, but she struggles with the ?not so fun? self-care. Pt participated in small groups where they worked to bust these self-care myths. Benefited from increased awareness of self-care, its benefits, and the consequences of not utilizing self-care strategies. Will continue IOP tx to promote mood stability, reduce self-sabotaging behaviors, and improve daily functioning. ? Narrative Note: []
--- NOTE | 2022-10-03 11:10 | BH.SGPN.GN ---
Behaviors/Verbalizations/Mental Status: []Pt alert and oriented, casually dressed and groomed. Eye contact fair. Motor activity appropriate. Speech within normal limits. Affect congruent, mood anxious. Thoughts linear, logical, no signs of hallucinations or delusions. Client Response/Progress/Benefit: []Pt engaged participant AEB completing self-assessment worksheet and providing input throughout discussion. Participated in group discussion on the various areas of self-care. Pt completed worksheet identifying current self-care practices and what self-care activities pt wants to start using. Pt selected financial self-care to begin practicing more consistently. Pt plans to do this by asking her dad to help her create a budget. Appeared to benefit from completing the self-care evaluation and gaining insights into current self-care practices, as well as identifying areas in which pt ?would like to improve upon.?Pt to continue IOP to stabilize moods, increase healthy coping, and prevent decompensation.
--- NOTE | 2022-10-04 09:05 | BH.SGPN.GN ---
Behaviors/Verbalizations/Mental Status: []Eye contact good, casually dressed, motor activity appropriate, speech normal rate and tone, mood euthymic and anxious, congruent affect, thoughts linear and intact, no evidence of delusions or hallucinations. Reviewed pt's symptom tracker, pt suicidal ideation within established baseline, denies any plan or intent. Future oriented. Client Response/Progress/Benefit: []Pt responded well to session, attentive and willing to process with group. Identified current mental health win as challenging herself to do the anxious thing and meet with her father to create a budget. Expressed that although this was anxiety inducing, she was glad she did so and found he was more understanding than she had anticipated. Additional win noted as learning today she had been chosen for a job she?d applied for and will be starting at a significantly higher pay rate than her previous position. Stressor is adhering to her budget as pt struggles with impulsive spending. Pt identified using the Delay, Distract, Decide skill to prevent unhealthy spending. Responded well to and appeared to benefit from supportive feedback and suggestions provided by the group. Recommended continued IOP tx to continue to improve healthy decision making, promote mood stability, as well as prevent decompensation. Narrative Note: []
--- NOTE | 2022-10-04 10:10 | BH.SGPN.GN ---
Behaviors/Verbalizations/Mental Status: [] Client alert and oriented, casually dressed and groomed. Eye contact good. Motor activity appropriate. Speech within normal limits. Affect congruent, mood euthymic. Thoughts linear, logical, no signs of hallucinations or delusions. Client Response/Progress/Benefit: [] Client responded well to session AEB taking notes throughout and listening attentively to others. Client was attentive throughout group activity discussing famous individuals and how they overcame failure to be successful. Client helped group identify how fear of failure can impact mental health and relationships. Client shared how parents impacted them on how they handle failure. Group together identified how fear of failure leads to over-obsessing, not trying, and lack of confidence. Client participated in experiential activity, working with group members to problem solve. Appeared to benefit from increased knowledge of fear of failure. Will continue IOP tx to improve overall functioning, reduce distorted thinking patterns, and reduce avoidance. Narrative Note: []
--- NOTE | 2022-10-04 11:10 | BH.SGPN.GN ---
Behaviors/Verbalizations/Mental Status: [] Client alert and oriented, casually dressed and groomed. Eye contact good. Motor activity appropriate. Speech within normal limits. Affect congruent, mood euthymic. Thoughts linear, logical, no signs of hallucinations or delusions. Client Response/Progress/Benefit: [] Client responded well to session, engaged in the experiential activity and attentive throughout group processing. 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 Client completed fear of failure worksheet and was able to identify thoughts and behaviors that reinforce personal fear of failure including shame, negative self talk, and judgement from others. Client participated in small group discussion regarding strategies to overcome fear of failure. Identified wanting to give themselves positive affirmations, practice self forgiveness, and get out of comfort zone. Appeared to benefit from increased knowledge of strategies to combat fear of failure and gaining self-awareness. Client will continue IOP tx to increase overall functioning and prevent decompensation. Narrative Note: []
--- NOTE | 2022-10-05 11:25 | BH.MDN ---
Multi-Disciplinary Note - Note 60-min Individual Time Started:: 08:58 Date: 10/05/22 Purpose of session/treatment goals addressed:: To address treatment goal #1 and created a healthy coping plan for managing emotions as well as boundaries for finances when paid tomorrow. Eye Contact:: Good Motor Activity:: Appropriate Appearance:: Casual Speech:: Appropriate Mood:: Anxious, Dysthymic Affect:: Congruent Thoughts:: Linear, Logical, No evidence of hallucinations/delusions noted Staff Interventions:: motivational interviewing, psychoeducation on: - borderline personality disorder relationship cycle, reviewed maladaptive coping behaviors, CBT techniques, strengths perspective, taught coping skills - reviewed distress tolerance skills for managing emotions at work, other - created a grief coping plan for today Client Response:: Client responded well to session, open to meeting with therapist on this date despite not being scheduled for groups. Pt shared struggling this morning as it is the anniversary date of her friend?s suicide. Described guilt and shame associated with client not answering his text prior to the suicide. Therapist normalized and validated client?s emotions, as well as worked with client on taking a self-compassionate approach to these thoughts. Able to identify it is not her fault and she did the best she could with the information she had at the time. Discussed a coping plan for the day and client identified wanting to visit her friends grave as she has not been there yet and shared plans to see if a friend would accompany her. Noted that typically she would have turned to one of the maladaptive coping skills she identified in the Maladaptive Coping Patterns worksheet completed for homework. Reviewed client?s common maladaptive coping patterns, sharing she most connects with ?burning bridges?, procrastinating, filling her day with other things to avoid, and beating herself up mentally. Shared struggling most with beating herself up mentally, misusing alcohol, and overspending which have begun to impact client?s finances and interpersonal relationships due to needing to ask for financial assistance. Client noted reducing her alcohol consumption from daily use to 3x a week which has helped her to feel a little more accomplished and in control. Reviewed importance of continuing to maintain a reduce use of alcohol on her mental health and finances. Used the rethinking drinking alcohol cost calculator to compare spending on alcohol now vs. when drinking daily. Shared not realizing the extent in which her drinking behaviors are impacting finances and reviewed strategies for continuing to reduce consumption. 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 Discussed struggling to maintain employment in the past and connected with psychoeducation on the BPD relationship cycle in the context of employment. Client reports plans to work on identifying specific coping skills and boundaries she may need in place prior to starting to prevent unintentional self-sabotaging behaviors. Risks/Concerns:: Client denies any suicidal ideations, plan, or intent as of 10/05/22. Denies any homicidal ideations. Denies any medication issues. Progress Toward Goals/Plan:: Progress noted with client reporting following through with goal of reducing drinking behaviors and creating a finance budget with her father. Client also showing increased insight and awareness into how her maladaptive coping patterns directly impact her emotions, interpersonal relationships, and continue to reinforce mental health sx. Client continues to struggle with desire to change current behavioral responses and incorporate healthier boundaries with herself. Client also continues to report anxious thought patterns and impulsive spending reinforcing these thoughts. Client to continue IOP to improve daily functioning, increase consistent use of healthy coping and prevent decompensation.
--- NOTE | 2022-10-10 09:05 | BH.SGPN.GN ---
Behaviors/Verbalizations/Mental Status: []Pt alert and oriented, disheveled appearance. Eye contact good. Motor activity restless. Speech within normal limits. Affect flat, mood depressed. Thoughts linear, logical, no signs of hallucinations or delusions. Reviewed pt?s symptom tracker, no risk for suicidal ideation, plan, or intent as of 10/10/22 Client Response/Progress/Benefit: []Pt responded well to session, receptive to feedback. Pt reports feeling apathetic this morning as pt has numerous stressors with her ex-boyfriend. Pt stated she is trying to use opposite action and thought challenging to better manage her irritability, anxiety, and depression. Pt stated in the past this would have triggered lashing out in anger. Pt is also trying to spend time with healthier supports to help distract herself. Pt appeared to benefit from reflecting on use of healthier coping skills. Pt will continue IOP tx to promote mood stability, increase distress tolerance, and combat distortions. Narrative Note: []
--- NOTE | 2022-10-10 10:15 | BH.SGPN.GN ---
Behaviors/Verbalizations/Mental Status: []Client alert and oriented, casually dressed and groomed. Eye contact good. Motor activity appropriate. Speech within normal limits. Affect congruent to topics being discussed, mood euthymic. Thoughts linear, logical, no signs of hallucinations or delusions. Client Response/Progress/Benefit: []Pt engaged in session AEB listening attentively to others and providing insight to group discussion. Pt engaged in activity, able to connect how it can be uncomfortable when things are out of one?s own control. Pt worked with group to identify what things in life can be hard to accept. Group identified things hard to accept as: of a loved one, body image, loss of relationship, mental health diagnosis, other?s behaviors, and past decisions. Pt worked on identifying what personal things are hard to accept for herself, sharing loss of a relationship and are things she struggles with accepting. Pt seemed to benefit from increased awareness of importance of acceptance. Pt to continue IOP to improve confidence, increase healthy decision making, and prevent decompensation. Narrative Note: []
--- NOTE | 2022-10-10 11:15 | BH.SGPN.GN ---
Behaviors/Verbalizations/Mental Status: []Pt alert and oriented, casually dressed and groomed. Eye contact fair. Motor activity appropriate. Speech within normal limits. Affect congruent, mood euthymic. Thoughts linear, logical, no signs of hallucinations or delusions. Client Response/Progress/Benefit: []Pt responded well to session, engaged and providing examples. Pt engaged as group continued discussion on acceptance and how lack of acceptance can impact mental health. Pt and peers identified what makes acceptance challenging and pt completed a self-reflection exercise on what is hard to accept in pt's life. Pt accepted in discussion to process how not accepting can cause more harm. Group identified strategies to increase acceptance. Pt appeared to benefit from gaining insight and strategies to increase acceptance. Pt will continue IOP tx to improve mood stability, increase consistent use of healthy coping skills, and prevent decompensation.
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
--- NOTE | 2022-10-11 10:10 | BH.SGPN.GN ---
Behaviors/Verbalizations/Mental Status: []Pt alert and oriented, neatly dressed and groomed. Eye contact good. Motor activity appropriate. Speech within normal limits. Affect constricted, mood calm. Thoughts linear, logical, no signs of hallucinations or delusions. Client Response/Progress/Benefit: []Pt was an active participant in group discussions and activity. Attentive during psychoeducation. Interactive discussion on the definition of perspective, how perspective is formed, and why perspective is important in treatment.? Pt along with peers also identified that perspective can either motivate and encourage treatment or be a barrier to receiving help. Pt shared she has an ?in between? perspective today meaning she is not negative, but also not very optimistic. Pt shared she is happy, but anxious today. Pt continues to make progress in challenging her negative thinking patterns, but pt reports ongoing issues with self-sabotaging behaviors. Will continue in IOP tx to promote mood stability, increase distress tolerance skills, and promote gains. Narrative Note: []
--- NOTE | 2022-10-11 11:15 | BH.SGPN.GN ---
Behaviors/Verbalizations/Mental Status: []Pt alert and oriented, casually dressed and groomed. Eye contact good. Motor activity appropriate. Speech within normal limits. Affect congruent, mood anxious. Thoughts linear, logical, no signs of hallucinations or delusions. Client Response/Progress/Benefit: []Pt was attentive and contributed to small group discussion. Pt completed strengths exploration worksheet. Pt able to acknowledge how these strengths are helping pt and can continue to help pt in mental health journey. Able to reflect on how pt?s intelligence, love for learning, and wisdom have helped pt in the past and continue to help pt with mental health. Pt worked with group to identify strategies that can help increase utilization of personal strengths and how to challenge one?s perspective in general. Benefited from identifying personal strengths and strategies for enhancing use of identified strengths. Pt to continue IOP tx to prevent decompensation, promote mood stability, and continue to improve healthy decision making. ? Narrative Note: []
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
--- NOTE | 2022-10-11 15:27 | BH.TPR ---
Treatment Plan Review Date of Admission:: 09/20/22 Date of Treatment Plan Review:: 11/10/22 Admitting Diagnoses:: 1. Bipolar disorder, NOS. 2. Borderline personality disorder. 3. Generalized anxiety disorder. 4. Rule out attention deficit disorder per patient history. 5. Possible alcohol use disorder Current Diagnoses:: 1. Bipolar disorder, NOS. 2. Borderline personality disorder. 3. Generalized anxiety disorder. 4. Rule out attention deficit disorder per patient history. 5. Possible alcohol use disorder Patient's Response to Treatment:: Pt has responded well to treatment AEB pt's consistent attendance, contributions during group discussions, engagement in individual therapy and willingness to challenge her perspective and try new coping methods, as well as completion of homework outside treatment environment. Status of Current Problems and Symptoms: Ongoing symptoms related ot several interpersonal stressors. Pt continuing to struggle with anxious symptoms specifically related to fear her ex will kick her out of the apartment, her relationship with her mother, and financial concerns. Pt additionally continues to report struggling with alcohol misuse as well as impulsive spending. Pt's current living environment and other psychosocial stressors seem to be impacting her mood and treatment. Problem #1 Problem Name:: Depression Status of Goals:: obj 1 - partially met, ongoing work encouraged. Pt is able to identify healthy coping skills like opposite action, challenging negative thoughts, and doing something creative. Pt struggles with consistently applying those skills in the moment. As a result pt depressive sx have seen a 14% reduction. obj 2 - not met, ongoing work encouraged. Pt has completed a maladaptive coping assessment and shows insight regarding the impacts of her maladaptive behaviors on maintaining depressive sx; however, pt struggles with consistently implementing the adaptive coping skills she has identified. Team Recommendations:: Team recommends pt continue current goals and objectives with focus on helping pt with consistent application of skills. Problem #2 Problem Name:: Anxiety Status of Goals:: obj 1 - partially met, ongoing work encouraged. Pt is able to identify calming skills like belly breathing, opposite action, and grounding tools. Pt struggles with consistently applying those skills in the moment, but has made progress with reduced avoidance behaviors, specifically related to difficult conversations with interpersonal relationships. Per pt's DSM 5 cross cutting measure pt's anxiety score has reduced by 13%. obj 2 - not met, ongoing work encouraged. Pt is able to identify several distortions impacting her anxiety in the tx setting; however struggles with identifying and challenging these distortions outside of tx. Team Recommendations:: Team recommends pt continue current goals and objectives with focus on helping pt with consistent application of skills.
--- NOTE | 2022-10-12 09:02 | BH.SGPN.GN ---
Behaviors/Verbalizations/Mental Status: []Eye contact is good. Motor activity is appropriate. Appearance is casual. Speech is Appropriate. Mood is euthymic and anxious. Affect is congruent. Thoughts are linear and logical. No evidence of psychosis. Reviewed daily check in sheet and denies any active SI. Client Response/Progress/Benefit: []Pt responded well to session, attentive and willing to process with group. Pt reports feeling ?worried? today as they were recently given news that a long-distance friend is struggling with their mental health. Shared spending time on the phone supporting their friend and trying to encourage them to get help. Noted wanting to drive several hours to check on them but recognizing this would not be the healthiest decision. Benefited from empathy, supportive feedback, and encouragement of the group. Shared mental health wins as providing the support to their friend, as well as having a difficult conversation with their ex whom they still live with. Discussed reminding themselves of the consequences of lashing out to maintain mood stability throughout this discussion. Pt will continue IOP tx to prevent decompensation, improve mood stability, and promote healthy change behaviors. Narrative Note: []
--- NOTE | 2022-10-12 11:10 | BH.SGPN.GN ---
Behaviors/Verbalizations/Mental Status: []Pt alert and oriented, neatly dressed and groomed. Eye contact good. Motor activity appropriate. Speech within normal limits. Affect congruent, mood euthymic. Thoughts linear, logical, no signs of hallucinations or delusions. Client Response/Progress/Benefit: []Pt engaged in session AEB contributing to discussion and engaging in activity. Pt did well to review current conflict styles of accommodating and competing and their impact on pt?s mental health. Attentive and taking notes during discussion on strategies for more effectively managing conflict in personal life.? Pt participated in activity and did well to talk through choices with peers. Pt given handout on fair fighting rules and identified that they want to work on asking herself why she is upset before discussing issues and taking breaks when heated. Appeared to benefit from gaining strategies to help pt better manage conflict. Will continue IOP tx to reinforce healthy coping skills, further increase distress tolerance skills, and improve mood stability. Narrative Note: []
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
== END 2022-10-15 23:59 ==
LOC: BHIOP 09:20
PROVIDERS: PCP Family Medicine; Referring Provider Psychiatry & Neurology Psychiatry; Visit Provider Psychiatry & Neurology Psychiatry
DX: F31.9 Bipolar disorder, unspecified (principal); F60.9 Personality disorder, unspecified; F41.1 Generalized anxiety disorder
CPT/HCPCS: S9480; 90834; 90837; 90853

== ENCOUNTER 2022-10-16 08:21 | Outpatient (RCR) | payer BC, SELFPAY ==
[2022-10-16 00:48] VITALS: BP 129/71; PULSE 96
--- NOTE | 2022-10-17 10:10 | BH.SGPN.GN ---
Behaviors/Verbalizations/Mental Status: []Pt alert and oriented, casually dressed and groomed. Eye contact good. Motor activity restless. Speech within normal limits. Affect constricted, mood anxious. Thoughts linear, logical, no signs of hallucinations or delusions. Client Response/Progress/Benefit: []Pt receptive to session AEB contributing to discussion, as well listening attentively to others, and taking notes. Worked with group to brainstorm the positive and negative aspects of stress on physical and mental health. Group did well to identify the benefits of stress as well as the impact of distress on performance, relationships, and mental health. Pt identified their personal top stressors as: see friends/being social, financial issues, and starting a new job. Pt seemed to benefit from increased awareness of current stressors and impact stress has on mental health. Recommended to continue IOP tx to improve confidence, continue use of healthy coping, and prevent decompensation.
--- NOTE | 2022-10-17 11:10 | BH.SGPN.GN ---
Behaviors/Verbalizations/Mental Status: [] Eye contact is good. Motor activity is appropriate. Appearance is casual. Speech is Appropriate. Mood is euthymic. Affect is full. Thoughts are linear and logical. No evidence of psychosis. Client Response/Progress/Benefit: [] Pt was an active participant in group discussions. Active and engaged during experiential activity. Attentive during psychoeducation on the 4 A's of stress management (Avoid, Alter, Adapt, Accept). Along with peers pt was able to connect the experiential activity to the group topic of stress. Identified times during the activity in which she utilized in the moment stress management skills which included; utilizing others for support/help, identifying struggles and adapting, making necessary changes when needed, the importance of patience, taking a step back, breathing, reframing thoughts, and not ruminating or letting setbacks lead to giving up. Benefited from increased education on stress management strategies and practicing in the moment stress management skills. Will continue in IOP to maintain gains and improve functioning to return to work. Narrative Note: []
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
--- NOTE | 2022-10-18 09:00 | BH.SGPN.GN ---
Behaviors/Verbalizations/Mental Status: []Pt alert and oriented, casually dressed and groomed. Eye contact good. Motor activity appropriate. Speech within normal limits. Affect congruent, mood euthymic. Thoughts linear, logical, no signs of hallucinations or delusions. Reviewed pt?s symptom tracker, no risk for suicidal ideation, plan, or intent. Client Response/Progress/Benefit: []Pt responded well to session, attentive and engaged. Pt reported mental health positive as going to [place] this weekend to visit a friend. Pt stated she is excited to spend time with this friend whom she hasn't seen in awhile. Pt identified additional mental health positive as spending her whole weekend with friends. Stated she found it helpful to be around supportive people all weekend. Stated current stressor as graduating from IOP tomorrow. 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 Pt appeared to benefit from support by peers. Pt will continue IOP tx to prevent decompensation and continue use of skills.
--- NOTE | 2022-10-18 10:10 | BH.SGPN.GN ---
Behaviors/Verbalizations/Mental Status: []Eye contact is good. Motor activity is appropriate. Appearance is casual. Speech is Appropriate. Mood is anxious. Affect is congruent. Thoughts are linear and logical. No evidence of psychosis. Client Response/Progress/Benefit: []Pt was a semi-active participant in group discussion and experiential activity, though remaining mostly passive throughout. Attentive during psychoeducation on resilience. Participated in interactive discussion with peers on the definition of resilience and where it comes from. Group identified that resiliency can be impacted by; past experiences, learned behaviors, and current mental health state. Group also worked together to identify the benefits of being resilient and how it is related to mental health. Able to relate experiential activity of group juggle to topics of resilience. Worked well with peers in small group in which they identified factors that contribute to resilience. Benefited from increased awareness of resilience and the factors that contribute to building resilience. Will continue in IOP to prevent decompensation and further promote mood stability, as pt transitions back into the workforce. Narrative Note: []
--- NOTE | 2022-10-18 11:10 | BH.SGPN.GN ---
Behaviors/Verbalizations/Mental Status: []Pt alert and oriented, disheveled appearance. Eye contact good. Motor activity appropriate. Speech within normal limits. Affect constricted, mood euthymic. Thoughts linear, logical, no signs of hallucinations or delusions. Client Response/Progress/Benefit: []Pt responded well to session AEB completing the resilience worksheet provided. Pt participated in the discussion and worked cooperatively with group to identify strategies to enhance each of the components discussed. Pt reports belief they already use resilience trait of??moving towards my goals? as pt is currently in school and will be working full-time. Pt stated they would like to continue to develop resilience trait of ?nurturing a positive view of self? as pt?s negative core beliefs often lead to self-sabotaging behaviors. Pt seemed to benefit from discussing strategies for improving personal resilience and identifying resilience traits pt already possesses. Will continue IOP for one more day as pt can benefit from closure and reinforcement of coping skills. Narrative Note: []
--- NOTE | 2022-10-19 09:10 | BH.SGPN.GN ---
Behaviors/Verbalizations/Mental Status: [] Eye contact is good. Motor activity is appropriate. Appearance is casual. Speech is Appropriate. Mood is euthymic. Affect is full. Thoughts are linear and logical. No evidence of psychosis. Reviewed daily check in sheet and no reports of suicidal ideations or intent. Client Response/Progress/Benefit: [] Pt was an active participant in group discussion. Attentive. Daily symptom tracker notes 07/23 for anxiety.Emotion for today is apprehensive and excited. Shared with the group that today is her last day in [facility]. Discussed the numerous changes in the last several months (relationship, job, housing) and how this was overwhelming at first however currently she is viewing these changes as positive and needed for growth. Believes that IOP was very helpful this is a great program. Increased resiliency skills. She starts her new job next week and discussed stressors associated with this change. Plans to follow up with her psychiatrist and counseling after leaving [facility]. Benefited from group support, encouragement, and feedback. Will be discharge from [facility] today. Narrative Note: []
--- NOTE | 2022-10-19 10:15 | BH.SGPN.GN ---
Behaviors/Verbalizations/Mental Status: []Pt alert and oriented, neatly dressed and groomed. Eye contact good. Motor activity appropriate. Speech within normal limits. Affect constricted, mood euthymic. Thoughts linear, logical, no signs of hallucinations or delusions. Client Response/Progress/Benefit: []Pt responded well to session AEB contributing to discussion, taking notes, and listening attentively to others. Group discussed the benefits of managed anger and anger as a secondary emotion. Pt shared perspective on personal benefits of anger as processing emotions. Pt completed worksheet on anger triggers and personal warning signs of anger. Pt identified their biggest triggers as grief, ?bad drivers,? and conflict. Appeared to benefit from increased knowledge of the anger cycle as well as personal triggers. Will discharge from IOP tx today as pt reports maximum benefit from IOP and has accomplished her tx goals. Narrative Note: []
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
--- NOTE | 2022-10-19 11:10 | BH.SGPN.GN ---
Behaviors/Verbalizations/Mental Status: []Client alert and oriented, casually dressed and groomed. Eye contact good. Motor activity appropriate. Speech within normal limits. Affect congruent, mood euthymic. Thoughts linear, logical, no signs of hallucinations or delusions. Client Response/Progress/Benefit: []Pt was engaged throughout AEB contributing to group discussion and self-reflection. Group finished processing cues to anger worksheet. Pt contributed as group brainstormed healthy coping skills for better managing anger which included: music, walking/exercise, taking a break, grounding tools, reflection, and journaling. Pt reported she would like to work on skills of 5 senses and journaling/reflection to help manage anger responses. Pt appeared to benefit from identifying different techniques to manage anger as well as gaining awareness of potential consequences of unmanaged anger. Pt has shown treatment progress and is discharging from [facility] today due to starting a new full-time job next week.
== END 2022-10-19 12:08 | disposition home or self-care (01) ==
LOC: BHIOP 08:21
PROVIDERS: PCP Family Medicine; Referring Provider Psychiatry & Neurology Psychiatry; Visit Provider Psychiatry & Neurology Psychiatry
DX: F31.9 Bipolar disorder, unspecified (principal); F60.3 Borderline personality disorder; F41.1 Generalized anxiety disorder
CPT/HCPCS: S9480; 90834; 90853

== ENCOUNTER 2023-12-31 08:00 | Outpatient (RCR) | payer BC, SELFPAY ==
--- NOTE | 2023-12-31 09:00 | BH.COMM ---
Communication Note Communication with Client Communication Note: Pt met with therapist to complete initial paperwork, risk assessment, and psychosocial. Case reviewed with Dr. Mahajan with plan to admit to IOP with dx F31.9.
--- NOTE | 2023-12-31 10:10 | BH.SGPN.GN ---
Behaviors/Verbalizations/Mental Status: []Pt alert and oriented, casually dressed and groomed. Eye contact fair. Motor activity appropriate. Speech within normal limits. Affect constricted, mood anxious. Thoughts linear, logical, no signs of hallucinations or delusions. Client Response/Progress/Benefit: [] Pt connected with topic of anxiety and participated throughout, providing input and taking notes. Participated throughout interactive discussion defining anxiety and identifying cognitive and physiological symptoms of anxiety. Group discussed how anxiety can prevent them from trying new things. Pt identified their physical signs of anxiety as: tingly hands, heart racing, and heavy chest. Pt identified safety behaviors as: avoidance, canceling plans, reassurance seeking, and substance use. Benefited from increased awareness and insight on anxiety and its impact. Pt will continue IOP tx to increase consistent use of healthy coping skills, challenge distortions, and prevent decompensation.
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
--- NOTE | 2023-12-31 11:15 | BH.SGPN.GN ---
Behaviors/Verbalizations/Mental Status: []Pt alert and oriented, casually dressed and groomed. Eye contact fair. Motor activity appropriate. Speech within normal limits. Affect congruent, mood calm. Thoughts linear, logical, no signs of hallucinations or delusions. Client Response/Progress/Benefit: []Pt was an active participant AEB pt providing input and listening attentively to peers. Attentive during psychoeducation on mindfulness coping skills and their impact on reducing anxiety and improving overall mental health wellness. Group was able to identify self-soothing and mind-based coping skills which included: 5-senses, meditation, deep breathing, TIPP, thought challenging, and progressive muscle relaxation. Pt also participated with peers in practicing mindfulness skills in session including deep breathing and PMR. Pt would like to work on using thoughts are thoughts not facts to manage anxiety. Appeared to benefit from increasing repertoire of anxiety reduction skills. First day of IOP tx. Pt will continue in IOP tx to prevent decompensation, improve mood stability, and gain healthy coping skills. ? Narrative Note: []
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
--- NOTE | 2024-01-02 09:00 | BH.SGPN.GN ---
Behaviors/Verbalizations/Mental Status: [] Pt alert and oriented, neatly dressed and groomed. Eye contact good. Motor activity appropriate. Speech within normal limits. Affect flat, mood depressed. Thoughts linear, logical, no signs of hallucinations or delusions. Reviewed pt?s symptom tracker, no risk for suicidal ideation, plan, or intent 01/02/24 Client Response/Progress/Benefit: []Pt responded well to session, attentive and engaged. Pt reports feeling drained this morning due to her relationship with her mother. Pt stated her mother is not the most supportive about pt's mental health and shared she doesn't even know I'm in IOP. Pt receptive to feedback from peers who offered ideas on how to approach the topic. Pt's mental health wins today include getting a part-time job to supplement income and having a good dinner with her mother and her girlfriend. Pt appeared to benefit from reflecting on progress and connecting with peers. Pt will continue IOP tx to prevent decompensation, improve daily functioning, and reduce isolation. Narrative Note: []
--- NOTE | 2024-01-02 10:10 | BH.SGPN.GN ---
Behaviors/Verbalizations/Mental Status: [] Pt alert and oriented, casually dressed and groomed. Eye contact good. Motor activity appropriate. Speech within normal limits. Affect flat, mood anxious and depressed. Thoughts linear, logical, no signs of hallucinations or delusions. Client Response/Progress/Benefit: [] Pt participated mainly during small group discussions. Attentive during psychoeducation about defense mechanisms. Showed engagement during small group discussions and helped group identify which defense mechanisms were maladaptive, adaptive, or ?somewhere in the ramirez.? Pt worked with small group on identifying how each defense mechanism can impact mental health and gave examples. ?Seemed to benefit from gaining awareness about the different defense mechanisms. Pt to continue IOP tx to prevent decompensation, stabilize mood, increase healthy coping, and improve functioning. Narrative Note: []
--- NOTE | 2024-01-02 10:20 | BH.NA_ITS ---
Physical Data Vital Signs Pulse Rate: 85 Blood Pressure: 114/76 Height/Weight Height: 1.6 m Weight:: 99.79 kg Weight in Pounds: 220.0 lbs Current Medication Compliance Medication Compliance Do you take your medication as prescribed?: Yes Nutritional History Appetite Nutritional Instructions: Describe your appetite:: Good Additional nutritional information:: Client states her appetite is mostly good, but states if she takes her Adderall before eating she will not have an appetite. Functional Assessment Sleep Pattern Describe any problems with sleeping: Client states her sleep ranges from 4-12 hours per night. Sensory/Communication Assess Communication Problems Do you have difficulty understanding what people are saying?: No Surgical History Surgical History Have you had any surgeries? If so, list type and date:: No Substance Abuse Substance Abuse Please describe substance abuse in the last 30 days:: Client states she currently drinks 2-3 beers per day about 2 times per week. Client states she has been a tobacco user since the age of 16 and currently vapes. Client states she used cocaine and LSD one time in the past year, and has a history of marijuana use over 10 years ago. Client states she usually drinks coffee daily. Mental Status Summary Mental Status Significant Findings/Observations on Appearance and Mood:: Client is alert and oriented x 4. Client is casually groomed. Client is cooperative with assessment. Client makes good eye contact. Client's voice has normal rate and volume. Client has appropriate affect. Client makes logical associations and has normal processing. Client denies delusions/hallucinations. Client denies recent SI. Suicide Assessment Suicidal Ideation Are you currently or have you been suicidal in the past?: Yes Suicidal Intentional Rating Scale (SIRS): Suicidal thoughts (past) Physician Notification Past Psychiatric History MH Treatment Hx Past Psychiatric Medications:: Klonopin, Topamax, Zoloft, and current medications Age of first mental health symptoms: Client states she first was in therapy around age 6 and first started medications for mental health around age 17. Describe (age, circumstance, etc) any past hospitalizations: 09/15/22- [facility] after cutting herself for the first time in 12 years and having thoughts of driving her car in front of a truck. Client does have a history of 2 suicide attempts. Current providers for mental health treatment (counselor, psychiatrist, sample case porter, etc.): Dr. Jamila Frost at [facility] for therapyDr. Duron at [facility] for psychiatry Fall Risk Assessment Age Age: Less than 60 Mental Status Mental Status: Willing & able to ask for assistance when needed Physical Status Physical Status: No problems Impairments Impairments: None Elimination Elimination: Continent AND independent Gait or Balance Gait or Balance: Walks independently Hx of Falls History of falls in the past 6 months: No known history Medications/Substances Psychotropics:: Antidepressants, Mood stabilizers and Stimulants Medications/substances used within the past 24 hours or ordered to administer: 3 or more of the medications/substances listed above Total Score Total Points:: 2 RN Summary of Impressions Impressions Recommendations Impressions: Psychiatric Issues: 1. Bipolar disorder, NOS 2. Borderline personality disorder 3. Generalized anxiety disorder 4. Attention deficit disorder 5. Recent acid and cocaine use disorder. 6. Rule out alcohol use disorder 7. Primary support and work issues Level of Care How do the client's current symptoms and functional deficits support need for this level of care?: Client has been in IOP twice before, the last being in September/October of 2022. Client states her past 2 times in IOP were for situations (losing her friend to suicide, break up with her long time boyfriend) and she states this time if for her overall mental health. Client reports feeling depressed lately and admits to decreased motivation, some impulsivity in the last couple of weeks and an erratic mood. Client denies current SI. Client has recently lost her apartment due to finances which she states is a stressor. IOP will promote gains and prevent further decompensation while providing social support and skills training.
--- NOTE | 2024-01-02 11:15 | BH.SGPN.GN ---
Behaviors/Verbalizations/Mental Status: []Pt alert and oriented, casually dressed and groomed. Eye contact good. Motor activity appropriate. Speech within normal limits. Affect congruent, mood depressed and anxious. Thoughts linear, logical, no signs of hallucinations or delusions. Client Response/Progress/Benefit: [] Pt responded well to session, participating in activity and small group discussion. Group reviewed the rest of the defense mechanisms and discussed how these are adaptive, maladaptive, or somewhere in the ramirez. Pt participated in the experiential activity which encouraged pts to draw a castle that portrayed their different defense mechanisms. Pt's defense mechanisms included suppression, humor, rationalization, and displacement. Pt shared she is working on managing displacement by trying to take a break when she catches herself feeling irritated. Pt listened to fishing vessel captain teach different skills to help pt?s cope with or change their defense mechanisms. Pt appeared to benefit from gaining insight to the different defense mechanisms and learning coping skills. Pt will continue IOP tx to promote mood stability, combat distortions, and prevent decompensation. Narrative Note: []
[2024-01-02 11:27] VITALS: BP 114/76; PULSE 85
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
--- NOTE | 2024-01-02 13:14 | BH.DR.ITP ---
Initial Treatment Plan Patient Information Visit Information: ADMISSION DATE: EXPECTED LOS: 4-6 weeks Problems/Symptoms Problem #1:: Depression Symptom:: Sadness, hopelessness, worthlessness, irritability, anhedonia, loss of motivation, hypersomnia, decreased concentration, passive thoughts of , plan for suicide. Problem #2:: Anxiety Symptom:: Worry, rumination
--- NOTE | 2024-01-09 09:05 | BH.SGPN.GN ---
Behaviors/Verbalizations/Mental Status: [] Eye contact is good. Motor activity is appropriate. Appearance is casual. Speech is Appropriate. Mood is depressed. Affect is congurent. Thoughts are linear and logical. No evidence of psychosis. Reviewed daily check in sheet and no reports of suicidal ideations or intent. Client Response/Progress/Benefit: [] ?Pt participated at times during the group discussions. Attentive. She shared recent mental health struggles including anxiety, conflict with family, low motivation, and anger outbursts. Shared how this has impacted her daily functioning, relationships, and work. ? Most days are really bad?. ? My depression is getting me a lot?. Increased sleep and limited energy. Struggling to identify and utilize any healthy coping skills. Limited progress. Benefited from group support, encouragement, and feedback. Will continue in IOP to maintain safety, stabilize mood, increase healthy coping, and improve functioning to return to work Narrative Note: []
--- NOTE | 2024-01-09 10:10 | BH.SGPN.GN ---
Behaviors/Verbalizations/Mental Status: [] Eye contact is fair. Motor activity is appropriate. Appearance is casual. Speech is Appropriate. Mood is anxious. Affect is constricted. Thoughts are linear and logical. No evidence of psychosis. Client Response/Progress/Benefit: [] Pt responded well to session AEB contributing to small group discussion, taking notes, and listening attentively to others. Group defined anger and discussed the benefits of managed anger and anger as a secondary emotion. Group shared perspective on personal benefits of anger as advocating for self. Pt completed worksheet on anger triggers and personal warning signs of anger. Pt identified a common trigger for her is when someone is rude to her at work. Pt able to create her personal anger cycle. Appeared to benefit from increased knowledge of the anger cycle as well as personal triggers. Will continue IOP to improve mood stability, increase consistent use of healthy coping skills, and prevent decompensation.
--- NOTE | 2024-01-09 11:15 | BH.SGPN.GN ---
Behaviors/Verbalizations/Mental Status: []Client alert and oriented, casually dressed and groomed. Eye contact fair to good. Motor activity appropriate. Speech within normal limits. Affect congruent, mood anxious and depressed. Thoughts linear, logical, no signs of hallucinations or delusions. Client Response/Progress/Benefit: []Pt was engaged throughout AEB contributing to group discussion and activity. Group processed how they each responded to the intentionally difficult task they were asked to completed and described the physical and emotional anger cues experienced throughout, as well as strategies used for managing these frustrations. Pt contributed as group brainstormed healthy coping skills for better managing anger which included: music, walking/exercise, taking a break, healthy venting, avoiding unnecessary stressors, reflection, and journaling. Pt identified plans to work on better recognizing her triggers ans beginning to avoid exposure to the unnecessary ones. Pt appeared to benefit from identifying different techniques to manage anger as well as gaining awareness of potential consequences of unmanaged anger. Pt to continue IOP to promote use of healthy coping skills, improve healthy decision making, and prevent decompensation. Narrative Note: []
--- NOTE | 2024-01-10 09:07 | BH.SGPN.GN ---
Behaviors/Verbalizations/Mental Status: [] Eye contact fair to good. Motor activity appropriate. Speech within normal limits. Affect congruent, mood anxious and dysthymic. Thoughts linear, logical, no signs of hallucinations or delusions. Reviewed client?s symptom tracker, SI within baseline, denies plan, or intent as of 01/10/2024. Client Response/Progress/Benefit: [] Client receptive of session, attentive and willing to process with group. Reports improved sx of anxiety ?(1/5) and ongoing depression (4/5) per daily sx tracker. ?Identified mental health ?sarah as successfully managing her emotions when visiting her nieces, despite forgetting to take her anxiety medication this morning. Shared trying to utilize grounding skills and focus on being in the moment which was helpful. Additional sarah noted as meeting her partner?s parents and doing well to communicate with them despite her anxiety. Reports this was less stressful than she had initially thought it would be. 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 Did well to identify skills she can use to do so. Benefitted from encouragement and support of the group. Recommended continued IOP tx to further improve mood stability, promote consistent skill application, positive self-talk, as well as prevent decompensation.
--- NOTE | 2024-01-10 10:10 | BH.SGPN.GN ---
Behaviors/Verbalizations/Mental Status: [] Eye contact is good. Motor activity is appropriate. Appearance is casual. Speech is Appropriate. Mood is anxious and depressed. Affect is congruent. Thoughts are linear and logical. No evidence of psychosis Client Response/Progress/Benefit: [] Pt an active participant in group discussions. Participated during interactive discussion on defining conflict (internal/external) and possible benefits to conflict. Attentive during psychoeducation on conflict styles (Avoidant, Accommodating, Competing, Cooperative) and engaged during interactive discussion in which peers identified the benefits and consequences to each conflict style. Pt identified their primary conflict style as accommodating or collaborative which can lead to never feeling heard and others disrespecting my boundaries Benefited from increased awareness of the impact of conflict styles in mental health. Will continue in IOP tx to prevent decompensation, stabilize mood, and improve functioning to return to work. Narrative Note: []
--- NOTE | 2024-01-10 11:10 | BH.SGPN.GN ---
Behaviors/Verbalizations/Mental Status: []Eye contact is good. Motor activity is appropriate. Appearance is casual. Speech is Appropriate. Mood is anxious, content. Affect is congruent. Thoughts are linear and logical. No evidence of psychosis. Client Response/Progress/Benefit: [] Pt was an active participant in group discussions and activity. Engaged with peers in activity and identifying healthy ways to approach each conflict scenario. Group discussed various conflict resolution skills that can be useful in addressing conflict outside of IOP. Benefited from practicing and learning conflict resolution skills during group activity. Able to identify areas pt wants to work on to improve how pt manages conflict both internally and externally. Expressed wanting to work on their defensiveness and ?not taking it so personally, telling myself feedback is based on something I do not who I am.? Will continue in IOP to stabilize mood, improve functioning in daily life, and prevent decompensation. Narrative Note: []
--- NOTE | 2024-01-11 10:15 | BH.SGPN.GN ---
Behaviors/Verbalizations/Mental Status: []Patient was alert and oriented, dishevelled, in same clothing as yesterday. Eye contact was good, motor activity normal, speech within normal limits. Affect congruent, mood depressed. Thoughts linear, logical, no signs of hallucinations or delusion Client Response/Progress/Benefit: []Pt participated in the group discussions AEB providing input and taking notes. Attentive during psychoeducation Goal Setting. Participated during the discussion on common barriers and pt identified some personal barriers as low motivation, lack of planning, and goals taking a long time. Group also identified benefits of goals as sense of purpose, improved self-confidence, more motivation for other goals, and improved mental health. Benefited from increased awareness of mental health benefits of goals as well as psychoeducation on SMART goal criteria. Will continue in IOP to improve mood stability, reduce unhelpful coping patterns, and improve distress tolerance skills. ? Narrative Note: []
--- NOTE | 2024-01-11 11:15 | BH.SGPN.GN ---
Behaviors/Verbalizations/Mental Status: []Pt alert and oriented, casually dressed and groomed. Eye contact good. Motor activity appropriate. Speech within normal limits. Affect congruent, mood anxious. Thoughts linear, logical, no signs of hallucinations or delusions. Client Response/Progress/Benefit: [] Pt was engaged during discussion and willing to complete the worksheet challenging them to develop a personal SMART goal. Pt chose the goal of writing three small goals daily and journal progress every night. Pt stated memory as a potential barrier. Identified solution as putting up sticky notes, set journal by bed, and phone note/calendar. Benefited from this group by developing a short-term SMART goal related to mental health. Will continue IOP tx to improve distress tolerance, challenge distortions, improve confidence, and prevent decompensation.
--- NOTE | 2024-01-11 12:01 | BH.MDN ---
Multi-Disciplinary Note Note 30-min Individual: Time Started:: 09:31 Date: 01/11/24 Purpose of session/treatment goals addressed:: Purpose of session was to review pt thoughts and behaviors maintaining depression, as well as identify behavior activation goals to begin reducing depressive sx. Eye Contact:: Good Motor Activity:: Appropriate Appearance:: Disheveled (unkempt, same clothing as previous day, notes not brushing hair or teeth) Speech:: Appropriate Mood:: Depressed Affect:: Congruent Thoughts:: Linear, Logical and No evidence of hallucinations/delusions noted Staff Interventions:: thought challenging, psychoeducation on: (maintenance cycles), CBT techniques, goal setting and taught coping skills (Ryanne.E.A.R. M.A.N.) Client Response:: Pt receptive of session, actively engaged throughout and openly discussed current symptoms and stressors impacting progress. Reports feeling tired this morning as she was in the ER much of the night with a friend who had an allergic reaction. Noted her friend is doing well now and explained this is why she is wearing the same clothing as the day before. Went on to discuss ongoing difficulties with depressive symptoms, noting that she usually lays in bed until the last moment before leaving to come to groups. Shared she has not been getting ready in the mornings and often goes several days before brushing her hair or teeth, and typically only showers on Fridays after being in her mom?s pool. Noted not having the energy or motivation to engage in self-care and spends much of her time laying in bed if she is not in group, working, or with friends. Shared that she struggles with showering as she feels her thoughts are the most negative during that time, resulting in pt avoiding the shower. Additionally, discussed not engaging in activities she previously enjoyed such as painting, crafts, and bertha. Receptive of psychoeducation on the cognitive triangle and depression maintenance cycles. Able to identify her own thoughts and behaviors in pt?s depression maintenance cycle. Identified that she often wakes up tired and dysthymic, tells herself ?it?s going to be a bad day?, and then stays in bed which reinforces her depression. Receptive of discussion on addressing both the thoughts and behaviors reinforcing her depressive symptoms. Pt identified a goal to begin addressing her personal hygiene by creating goals to brush hair and teeth daily, as well as shower 2-3x a week. Receptive of keeping a goal tracker to aid in accountability and identifying progress. Additionally, worked with therapist to identify strategies for challenging her negative thought patterns. Receptive of taking time to reflect on accomplishments and begin a regular gratitude practice. Identified that reflecting on gratitude in the shower may reduce likelihood of negative thought patterns during that time. 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 Receptive of learning the DBT skill ?Cindy Alicea.A.N.? and did well to review ways to approach the topic of expectations following this guideline. Plans to discuss this weekend. Risks/Concerns:: None noted. Pt denies suicidal ideation, plan, or intent as of this date 01/11/24. Progress Toward Goals/Plan:: Limited progress noted. Pt continues to report depression symptoms impacting her daily functioning. Reports sleeping much of the day and difficulties completing personal hygiene routine, as well as not engaging in activities she enjoys. Pt has made some progress in reducing isolation and reports spending time with friends, as well as her girlfriend, more consistently. Does report ongoing difficulties in regulating her emotions when interacting with her mother, who is major source of stress for patient. Receptive of beginning to work on interpersonal effectiveness skills to improve communication and conflict resolution within that relationship. Additionally, pt receptive of creating behavior activation goals to improve mood. Recommended continued IOP tx to promote mood stability, improve healthy skill application, and prevent decompensation. Time Stopped:: 10:01
--- NOTE | 2024-01-16 09:00 | BH.SGPN.GN ---
Behaviors/Verbalizations/Mental Status: [] Eye contact good. Motor activity appropriate. Speech within normal limits. Affect congruent, mood content. Thoughts linear, logical, no signs of hallucinations or delusions. Reviewed client?s symptom tracker, denies SI, plan, or intent as of 01/16/2024. Client Response/Progress/Benefit: [] Client receptive of session, attentive and willing to process with group. Reports improved sx of anxiety ?(2/5) and ongoing depression (4/5) per daily sx tracker. ?Identified mental health ?sarah as successfully managing her emotions when she unexpectedly hurt herself while cutting wood. Shared that she did well not to lash out in anger or panic and did what she needed to treat the wound. Reports in the past she would have panicked but she utilized deep breathing and positive self-talk to prevent from doing so. Additional sarah noted as following through with getting here this morning despite not wanting to get out of bed. Shared using opposite action to do so. Current stressor noted as needed to get her blood work completed. Did well to identify skills she can use to do so. Benefitted from encouragement and support of the group. Recommended continued IOP tx to further promote mood stability and consistent skill application, well as prevent decompensation. Narrative Note: []
--- NOTE | 2024-01-16 10:10 | BH.SGPN.GN ---
Behaviors/Verbalizations/Mental Status: []Eye contact is good. Motor activity is appropriate. Appearance is neat. Speech is Appropriate. Mood is anxious and euthymic. Affect is congruent. Thoughts are linear and logical. No evidence of psychosis Client Response/Progress/Benefit: [] Pt was an active participant in group discussion and experiential activity. Attentive during psychoeducation on resilience. Participated during interactive discussion with peers on the definition of resilience. Able to relate experiential activity of group juggle to topics of resilience. Group worked together to identify what can impact one's ability to be resilient which included past experiences, trauma, toxic support system, lack of resources, and current mental/physical health state. Worked well with peers in small group in which they identified factors that contribute to building resilience. Pt?s group worked on the importance of keeping things in perspective. Benefited from increased awareness of resilience and the factors that contribute to building resilience. Will continue in IOP to improve emotion regulation, improve view of self, and prevent decompensation.
--- NOTE | 2024-01-16 11:10 | BH.SGPN.GN ---
Behaviors/Verbalizations/Mental Status: []Pt alert and oriented, disheveled appearance. Eye contact good. Motor activity appropriate. Speech within normal limits. Affect flat, mood content. Thoughts linear, logical, no signs of hallucinations or delusions. Client Response/Progress/Benefit: []Pt responded well to session AEB completing the resilience worksheet provided. Pt participated in the discussion and worked cooperatively with group to identify strategies to enhance each of the components discussed. Pt reports belief they already use resilience traits of??make connections? and ?self-awareness.? Pt stated they would like to continue to develop resilience trait of ?avoiding seeing crises as insurmountable? as pt feels she would benefit from reminding herself when she has overcome hard things in the past. Pt seemed to benefit from discussing strategies for improving personal resilience and identifying resilience traits pt already possesses. Will continue IOP tx to prevent decompensation, replace substance use with healthy coping skills, and gain distress tolerance skills. Narrative Note: []
--- NOTE | 2024-01-16 11:38 | PCM.BH.PN ---
Progress Note Progress Note: History of Present Illness/Interim History: The patient is a 28-year-old female single with a history of bipolar disorder, borderline personality disorder, anxiety and alcohol use disorder who is seen in follow-up at the [facility] behavioral health IOP. I last saw the patient 2 weeks ago and no medication changes were made at that time. The patient states that she feels that she has been feeling more depressed lately and it has been hard to get off the couch and hard to motivate herself to do anything. She denies any drug use since I last saw her. She has not gotten her blood work yet but plans to get it done today. She still endorses sadness, loss of motivation, anhedonia, a little less hopelessness but still some present. She wants to sleep all the time and admits to passive thoughts of still but denies suicidal ideation. She has a chronic plan of overdosing on meds and drown herself in the bathtub if she were ever to attempt suicide but denies any suicidal ideation, homicidal ideation, hallucinations or delusions. She has not had any any khushi since 1 month ago. She denies any thoughts or actions of self-harm. Current Psychiatric Medications: [] Prozac 20 mg p.o. daily; Abilify 10 mg p.o. nightly (decreased from 20 mg 1 year ago); Lamictal 300 mg p.o. daily; Adderall XR 25 mg every morning by mouth and Adderall immediate release 10 mg in the afternoon. Mental Status Examination: [] The patient is a 28-year-old female with tattoos bilaterally on her arms who is normal for stated age and casually dressed and groomed with good hygiene. She has 2 nose piercings also. She is ambulatory with a normal gait and has no psychomotor agitation or retardation. Speech is normal rate and rhythm and fluent with no pressure and eye contact is good. Mood is depressed. Affect is mildly constricted. Thought process is goal-directed and organized. Thought content: There is evidence of passive thoughts of and a chronic plan for suicide. There is no evidence of suicidal ideation, homicidal ideation, hallucinations, delusions or symptoms of khushi. Reality testing is intact. Judgment is intact. Insight is limited but fair. Impulsivity is high. Diagnoses: [] 1. Bipolar disorder, NOS 2. Borderline personality disorder 3. Generalized anxiety disorder 4. Attention deficit disorder 5. History of acid and cocaine use disorder 6. Rule out alcohol use disorder 7. Primary support and work issues Plan: [] The patient will continue the IOP and behavioral health as the structure, support, education and group therapy will hopefully prevent worsening of the patient's symptoms. She felt safe during the interview and if it anytime she does not feel safe she agrees to let us know or go to the emergency room. The risks, options, possible complications and side effects of the medications were again discussed with the patient and she understands and accepts these. Patient does not wish to decrease her Prozac to cut down on the mood cycling. She does agree to increase her Abilify to 15 mg p.o. daily to help with her persistent depression. She agrees to stay sober from all alcohol and drug use. She agrees to get her TSH and vitamin D levels today. She will continue to follow-up with her outpatient providers and I will see the patient in regular follow-up while she is in the IOP.
== END 2024-01-16 23:59 ==
LOC: BHIOP 08:00
PROVIDERS: PCP Family Medicine; Referring Provider Psychiatry & Neurology Psychiatry; Visit Provider Psychiatry & Neurology Psychiatry
DX: F31.9 Bipolar disorder, unspecified (principal); F60.3 Borderline personality disorder; F41.1 Generalized anxiety disorder; F42.9 Obsessive-compulsive disorder, unspecified; F14.99 Cocaine use, unspecified with unspecified cocaine-induced disorder; Z79.899 Other long term (current) drug therapy
CPT/HCPCS: S9480; 90832; 90853

== ENCOUNTER → 2024-01-16 | Outpatient (CLI) | payer BC, SELFPAY ==
[2024-01-16 13:03] LABS: Thyroid Stim Hormone (TSH) 0.56 uIU/mL (0.358-3.74)
[2024-01-16 13:09] LABS: Vitamin D,25 Hydroxy 32.4 ng/mL
--- NOTE | 2024-01-23 14:59 | BH.MDN_ITS ---
Multi-Disciplinary Note Note 30-min Individual: Time Started:: 11:23 Date: 01/23/24 Purpose of session/treatment goals addressed:: Purpose of session was to review homework goal progress as well as discuss healthy conflict resolution strategies for pt to implement with confronted with interpersonal conflict. Eye Contact:: Good Motor Activity:: Appropriate Appearance:: Casual Speech:: Appropriate Mood:: Euthymic and Anxious Affect:: Congruent Thoughts:: Linear, Logical and No evidence of hallucinations/delusions noted Staff Interventions:: thought challenging, motivational interviewing, psychoeducation on: (rules of 'fair fighting'), CBT techniques, strengths perspective and goal setting Client Response:: Pt receptive of session, actively engaged throughout. Reports current stressor as accidentally throwing her medications away yesterday when cleaning out her car at [place] [employer]. Shared that she did reach out to her insurance who said they would override re-order restrictions to refill the discarded medications and requested we refill her Abilify. Shared plans to reach out to her outpatient psychiatrist to request a re-order of Adderall, as this was also accidentally discarded. Pt reports anxiety about doing so as this is a controlled substance and she is uncertain the psychiatrist will agree to refill. Did well to identify skills she can use to maintain focus and regulate if unable to immediately refill these meds. Went on to describe following through with some of her goals from last session; however, struggled to complete them all. Shared successfully improving with her hygiene goal to brush her hair and teeth daily, as well as a goal to re-engage with crafting activities. Shared that she crocheted a gift for her girlfriend which she was proud of. Did indicate struggling with making things for herself and fears she is ?love bombing? her girlfriend. Receptive of discussing what behaviors she thinks may be considered ?love bombing? and pt showed insight into the impacts of consuming her thoughts and time with one person. Recognized that not working on rebuilding the relationship with her self may prevent her from making as much progress in reducing depressive symptoms and improving overall mood stability. Pt identified wanting to work on creating healthier balance and identified plans to spend independent self-care crafting for herself without the intent of making something for someone else this week. Went on to explain that she has not yet discussed expectations with her mother, which was a goal from last session. Shared she is putting this off as she has not paid her mom rent yet and feels s he does not have right nor does she believe her mother will be receptive of discussion until pt pays. Pt did well to challenge distortions associated with her thought of not having ?the right? to establish clear boundaries, as well as identified the importance of doing so both for her mental health and relationship with her mother. Reports she gets paid on Sunday and plans to have the conversation with her mother Sunday. Stated that she is anxious about doing so but did well to identify skills she can use such as deep breathing, using the DEAR MAN skill taught in last session, and making an effort to remain calm throughout. Reviewed rules of fair fighting and pt created a plan to list the specific expectations and boundaries she would be okay with by Sunday so as to go into the conversation feeling more confident. Risks/Concerns:: None noted. Pt denies any SI, plan, or intent as of this date 01/23/24 Progress Toward Goals/Plan:: Some progress noted. Pt reports overall improvement in mood and reduction in anxiety sx. This is also reflected in reduction of DSM-5 scores for depression and anxiety at 3-week review. Shared she is still experiencing depressive sx such as crying spells, negative self- talk, and low motivation. She has however started to apply behavior activation skills and is getting back into activities she enjoys. Reports anxiety is not as pervasive as in the past but she continues to experience daily worry and ruminating thoughts. Recommended continued IOP tx to improve mood stability, healthy boundary setting, and prevent decompensation. Time Stopped:: 11:58
== END | disposition home or self-care (01) ==
PROVIDERS: Referring Provider Psychiatry & Neurology Psychiatry; Visit Provider Psychiatry & Neurology Psychiatry
DX: E55.9 Vitamin D deficiency, unspecified (principal)
CPT/HCPCS: 36415; 82306; 84443

== ENCOUNTER 2024-01-17 07:15 | Outpatient (RCR) | payer BC, SELFPAY ==
[2024-01-17 00:27] VITALS: BP 114/76; PULSE 85
--- NOTE | 2024-01-17 09:02 | BH.SGPN.GN ---
Behaviors/Verbalizations/Mental Status: [] Client alert and oriented, casual appearance. Eye contact fair. Motor activity appropriate. Speech within normal limits. Affect congruent, mood anxious. Thoughts linear, logical, no signs of hallucinations or delusions. Reviewed client's symptom tracker, no risk for suicidal ideation, plan, or intent. Client Response/Progress/Benefit: [] Client responded well to session AEB listening to others and sharing thoughts/feelings. Client stated mental health positive as being able to manage her emotions this morning when she got cut off and screamed out in the drive thru line this morning. Client shared in the past she would screamed back, but recognized wouldn't have helped the situation. Stated additional mental health positive as getting her blood work done instead of avoiding this task. Client stated current stressor is her mom yelling at her that client needs to go back to work full-time. Client stated mom continues to be stressor for her. Appeared to benefit from support from peers. Will continue IOP tx to improve distress tolerance, challenge distorted/negative thoughts, and prevent decompensation.
--- NOTE | 2024-01-17 10:10 | BH.SGPN.GN ---
Behaviors/Verbalizations/Mental Status: [] Eye contact is good. Motor activity is appropriate. Appearance is casual. Speech is Appropriate. Mood is anxious. Affect is congruent. Thoughts are linear and logical. No evidence of psychosis. Client Response/Progress/Benefit: [] Pt was an engaged participant AEB listening attentively to others, taking notes, and providing feedback in small group discussions. Attentive during psychoeducation AEB by note taking and providing some input. Pt worked along with peers in small groups to define inappropriate guilt and appropriate guilt. Interactive discussion on examples of both inappropriate and appropriate guilt. Pt able to connect impact inappropriate guilt can have on MH. Benefited from increased awareness of guilt and the differences between appropriate and inappropriate guilt. Plan is to continue in IOP to prevent decompensation, stabilize mood, increase healthy coping, and improve functioning. Narrative Note: []
--- NOTE | 2024-01-17 11:15 | BH.SGPN.GN ---
Behaviors/Verbalizations/Mental Status: []Pt alert and oriented, casually dressed and groomed. Eye contact good. Motor activity appropriate. Speech within normal limits. Affect congruent, mood content, anxious. Thoughts linear, logical, no signs of hallucinations or delusions. Client Response/Progress/Benefit: []Pt engaged participant AEB listening attentively to others and providing input throughout group. Pt worked within their small group to identify strategies to manage inappropriate guilt. Identified a personal example of inappropriate guilt as ?As blaming herself for her friend's suicide? Insight cues a feeling of ?fear of being a 'bad friend' or not doing enough? Pt wants to work on combatting inappropriate guilt by correcting the distortions and practicing self-compassion. Pt seemed to benefit from learning about strategies to manage appropriate and inappropriate guilt. Pt continue in IOP tx to prevent decompensation, improve self-care, and promote mood stability. ? Narrative Note: []
--- NOTE | 2024-01-18 08:52 | BH.COMM ---
Communication Note Communication with Client Communication Note: Pt scheduled for individual and IOP group sessions on this date. However, pt called to cancel due to needing to get a cut with potential infection checked by her PCP. Therapist will follow-up with pt next week.
--- NOTE | 2024-01-23 09:02 | BH.SGPN.GN ---
Behaviors/Verbalizations/Mental Status: [] Client alert and oriented, casual appearance. Eye contact good. Motor activity appropriate. Speech within normal limits. Affect congruent, mood anxious. Thoughts linear, logical, no signs of hallucinations or delusions. Reviewed client's symptom tracker, no risk for suicidal ideation, plan, or intent. Client Response/Progress/Benefit: [] Client responded well to session AEB listening to others and sharing thoughts/feelings. Client reported mental health positive as her sliced finger is getting better after getting medication at urgent care for the infection. Client stated additional positive as focusing on self-care by scheduling a chiropractor appointment. Client stated current stressor as accidentally throwing away all of her medications. Client stated feeling worried she won't be able to get refills on some of her medications. Appeared to benefit from support from peers. Will continue IOP tx to promote gains, continue challenging distorted thoughts, and prevent decompensation.
--- NOTE | 2024-01-23 10:10 | BH.SGPN.GN ---
Behaviors/Verbalizations/Mental Status: [] Eye contact is good. Motor activity is appropriate. Appearance is casual. Speech is Appropriate. Mood is anxious and content. Affect is congruent. Thoughts are linear and logical. No evidence of psychosis. Client Response/Progress/Benefit: [] Pt was an active participant during group discussions and group activities. This portion of group was very psychoeducation heavy and pt was attentive during psychoeducation. Engaged during activity in which they identified which type of foods (i.e. carbs, sugar, salt, fast food, caffeine, etc) they seek out when sad, tired, angry, stressed, anxious, etc. Pt was able to identify the impact that certain foods have on their mental health through group example which was beneficial. Reported connecting with the impacts alcohol can have on bipolar disorder and increased risk of cycling. Benefited from increased awareness of the connection between nutrition and mental health. Will continue in IOP to prevent decompensation, stabilize mood, and increase healthy coping skills. Narrative Note: []
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
--- NOTE | 2024-01-24 10:10 | BH.SGPN.GN ---
Behaviors/Verbalizations/Mental Status: [] Eye contact is good. Motor activity is appropriate. Appearance is casual. Speech is Appropriate. Mood is anxious, content. Affect is congruent. Thoughts are linear and logical. No evidence of psychosis. Client Response/Progress/Benefit: [] Pt engaged participant AEB listening to others, engaging in activity, and providing feedback at times. Attentive during psychoeducation and provided insight into obstacles that impede mental wellness. Pt shared with group current mental health reality and desired mental health reality. Stating she would like to have more confidence in herself and her ablity to honestly and vulnerably communicate with supports, as well as better emotion regulation. Identified barriers to desired reality include: poor boundaries, lack of motivation, and comparing herself to others. Benefited from taking look at current mental health state and obstacles for progress. Pt to continue IOP tx to improve mood stability, increase confidence and coping application, and prevent decompensation. Narrative Note: []
--- NOTE | 2024-01-24 11:10 | BH.SGPN.GN ---
Behaviors/Verbalizations/Mental Status: [] Eye contact is good. Motor activity is appropriate. Appearance is casual. Speech is Appropriate. Mood is anxious. Affect is congruent. Thoughts are linear and logical. No evidence of psychosis. Client Response/Progress/Benefit: [] Pt was an engaged participant in group discussion and activity. Worked with group to identify strategies to help overcome barriers and obstacles to desired reality. Group developed strategies for the common barriers. Identified personal barriers to desired reality and choose one obstacle to work. Pt stated he wants to work on barrier of poor boundaries by starting with enforcing small boundaries first. Pt seemed to benefit from increased repertoire of healthy coping skills/strategies to overcome common barriers to moving forward. Pt is to continue IOP to improve self-care, promote mood stability, and prevent decompensation. Narrative Note: []
--- NOTE | 2024-01-25 09:00 | BH.SGPN.GN ---
Behaviors/Verbalizations/Mental Status: [] Client alert and oriented, casual appearance. Eye contact good. Motor activity appropriate. Speech within normal limits. Affect congruent, mood anxious. Thoughts linear, logical, no signs of hallucinations or delusions. Reviewed client's symptom tracker, no risk for suicidal ideation, plan, or intent. Client Response/Progress/Benefit: [] Client responded well to session AEB listening to others and sharing thoughts/feelings. Client stated mental health positive as getting a mindfulness journal. Reported so far she has found it to be helpful to be present. Client reported additional positive as engaging in self-care by going to the chiropractor to help manage some of her pain. Client reported current stressor is her financial situation because she had to pay full whitt at the chiropractor and now doesn't have enough to pay her mom the full rent whitt. Appeared to benefit from support from peers. Will continue IOP tx to increase promote mood stability, increase consistent use of healthy coping skills, and prevent decompensation.
--- NOTE | 2024-01-25 10:10 | BH.SGPN.GN ---
Behaviors/Verbalizations/Mental Status: []Pt alert and oriented, casually dressed and groomed. Eye contact good. Motor activity appropriate. Speech within normal limits. Affect congruent, mood content. Thoughts linear, logical, no signs of hallucinations or delusions. ? Client Response/Progress/Benefit: []Pt responded well to session, attentive and engaged. Pt participated in activity where pts had to guess the celebrity with a known mental health diagnosis and this led to discussion on self-stigma. Group participated in the discussion defining stigma as well as what stigma has kept pt's from doing in their lives. Pt stated mental health stigma has led pt to not being willing to openly communicate about her mental health with her mother of co-workers out of fear of retaliation or rejection. Resulting in pt not feeling understood or supported. Pt worked with peers to begin discussion of what reinforces stigma and this was discussed further in the next group. Pt appeared to benefit from learning about the different types of stigma as well as gaining awareness of how stigma as personally impacted pt. Pt will continue in IOP tx to promote mood stability, improve communication with supports, and prevent decompensation. Narrative Note: []
--- NOTE | 2024-01-25 11:10 | BH.SGPN.GN ---
Behaviors/Verbalizations/Mental Status: []Pt alert and oriented, disheveled. Eye contact good. Motor activity appropriate. Speech within normal limits. Affect congruent, mood depressed. Thoughts linear, logical, no signs of hallucinations or delusions. Client Response/Progress/Benefit: [] Pt engaged participant AEB participating in the activity, providing input during small group discussion, and listening attentively to others. Pt appeared to connect with discussion in the benefits of addressing mental health stigma which included: improved relationships, increased willingness to seek help, increased happiness, and improved confidence. Group brainstormed strategies to combat social and perceived stigma. Pt identified that they can contribute to stigma by not advocating for herself. Pt shared one thing pt can do to combat stigma is ?speaking up about what I need.? Appeared to benefit from increasing awareness of strategies to combat stigma. Will continue IOP tx to prevent decompensation, increase distress tolerance skills, and improve mood stability. Narrative Note: []
--- NOTE | 2024-01-30 10:43 | PCM.BH.PN ---
Progress Note Progress Note: History of Present Illness/Interim History: Patient is a 28-year-old single female with a history of bipolar disorder, borderline personality disorder, anxiety and alcohol use disorder who is seen in follow-up at the [facility] behavioral health [facility]. I last saw the patient 2 weeks ago and at that time her Abilify was increased to 15 mg daily. Patient is tolerating the dose increase well and has no side effects. She states that her mood control feels a little better and she feels less depressed but she has noticed she is a little more tired in the last week or so. She states that overall she is doing fine. She feels she is benefiting from the IOP and learning valuable skills to help with her emotional management. She remains sober from alcohol and all drug use. She still has some passive thoughts of but they occur much less often than before. She denies suicidal ideation, homicidal ideation, hallucinations or delusions. She sort of still has the chronic plan of overdosing on meds and drowning herself in a bathtub but states that she would never do it because she feels her nieces are protective against her committing suicide. She denies any symptoms of khushi or hypomania. Current Psychiatric Medications: [] Prozac 20 mg p.o. daily; Abilify 15 mg p.o. nightly (x 2 weeks); Lamictal 300 mg p.o. daily; Adderall XR 25 mg every morning p.o. and Adderall immediate release 10 mg in the afternoon by mouth for ADD. Mental Status Examination: [] The patient is a 28-year-old female with tattoos bilaterally who is otherwise normal for stated age and casually dressed and groomed with good hygiene. She has 2 nose piercings. She has no psychomotor agitation or retardation and is ambulatory with a normal gait. Eye contact is good and speech is normal rate and rhythm and fluent with no pressure. Mood is mildly depressed. Affect is constricted. Thought process is goal-directed and organized. Thought content: There is evidence of passive thoughts of and a chronic plan for suicide. There is no evidence of suicidal ideation, homicidal ideation, hallucinations, delusions or symptoms of khushi. Reality testing is intact. Judgment is intact. Insight is fair. Impulsivity is high. Diagnoses: [] 1. Bipolar disorder, NOS 2. Borderline personality disorder 3. Generalized anxiety disorder 4. Attention deficit disorder 5. History of LSD and cocaine use disorder 6. Rule out alcohol use disorder (sober times over 2 weeks) 7. Primary support and work issues Plan: [] The patient will continue the IOP in behavioral health as the structure, support, education and group therapy will hopefully prevent worsening of the patient's symptoms. She felt safe during the interview and if it anytime she does not feel safe she agrees to let us know or go to the emergency room. The risks, options, possible complications and side effects of the medications were again discussed with the patient and she understands and accepts these. Reviewed the patient's labs with her and both were normal. The patient agrees to change her Abilify to at bedtime dosing and her Lamictal to at bedtime dosing in the hopes that this will make her less tired during the day. She will continue to follow-up with her outpatient providers and I will see the patient in regular follow-up while she is in the IOP. No other medication changes were made.
--- NOTE | 2024-01-31 09:05 | BH.SGPN.GN ---
Behaviors/Verbalizations/Mental Status: [] Client alert and oriented, casually dressed and groomed. Eye contact good. Motor activity appropriate. Speech within normal limits. Affect congruent, mood euthymic and anxious. Thoughts linear, logical, no signs of hallucinations or delusions. Reviewed client?s symptom tracker, no risk for suicidal ideation, plan, or intent as of 01/31/24. Client Response/Progress/Benefit: [] Client responded well to session, offering ideas to peers and providing encouragement. Client reports feeling cynthia, but not sad this morning. Client stated trigger that has impacted her mood negatively the past couple days was seeing her brother out in public. Client processed feelings and thoughts that came with his encounter and how shes been coping with continuing to push herself to being active and not isolate. Client shared mental health wins of picking up more shifts at work and going to her psych appt yesterday with feeling better afterwards. Client appeared to benefit from reflecting on her growth and processing triggering event. Client will continue IOP tx to increase overall functioning and prevent decompensation. Narrative Note: []
--- NOTE | 2024-01-31 10:10 | BH.SGPN.GN ---
Behaviors/Verbalizations/Mental Status: []Pt alert and oriented, casually dressed. Eye contact good. Motor activity appropriate. Speech within normal limits. Affect congruent, mood calm. Thoughts linear, logical, no signs of hallucinations or delusions. Client Response/Progress/Benefit: []Pt was an active participant in group discussion. Attentive during psychoeducation on the CBT [place] (Thoughts, Behaviors, Emotions). Engaged in group discussion on how thoughts and behaviors can contribute to maintaining adverse feelings, such as depression, anxiety, and irritability. Completed worksheet in which pt identified a thought that is keeping them stuck or is in obstacle to increased mental wellness. The thoughts that pt identified were ?I don?t deserve support, everyone secretly hates me, I?m always alone? Shared this maintains depression and anxiety cycles. Pt benefited from increased awareness of the basis of CBT therapy as well as specific thoughts that are impacting pt's progress. Will continue in IOP to promote mood stability, increase distress tolerance, and reinforce healthy coping skills. Narrative Note: []
--- NOTE | 2024-01-31 11:10 | BH.SGPN.GN ---
Behaviors/Verbalizations/Mental Status: []Pt alert and oriented, casually dressed and groomed. Eye contact good. Motor activity appropriate. Speech within normal limits. Affect congruent, mood dysthymic and anxious. Thoughts linear, logical, no signs of hallucinations or delusions. Client Response/Progress/Benefit: [] Pt responded well to session, contributing to discussion and attentive throughout discussion. Pt identified a negative thought that has kept them stuck. Pt's thought was I?m always alone.? Pt reported when they think this way, pt shuts down, isolates, and self-sabotages so ?it becomes a self-fulfilling prophecy.? Pt worked to reframe the thought by finding more rational, realistic ways to look at the thoughts and then processed them within group setting. Pt reframed the thought to ?people have made me feel comforted without them physically being there.? Pt appeared to benefit from practicing challenging negative thinking with peers and gaining coping skills. Pt will continue IOP tx to promote mood stability, increase distress tolerance, and further increase self-confidence. Narrative Note: []
--- NOTE | 2024-02-01 09:00 | BH.SGPN.GN ---
Behaviors/Verbalizations/Mental Status: [] Eye contact good. Motor activity appropriate. Speech within normal limits. Affect congruent, mood anxious and content. Thoughts linear, logical, no signs of hallucinations or delusions. Reviewed client?s symptom tracker, denies SI, plan, or intent as of 02/01/2024. Client Response/Progress/Benefit: [] Client receptive of session, attentive and willing to process with group. Reports improved sx of depression?(2/5) and anxiety (2/5), per daily sx tracker. ?Identified mental health ?sarah as attending her second chiropractor appointment yesterday and feeling less anxious than she did before. Did well to remind herself that thoughts are not facts and that the chiropractor is a professional who is trained specifically for this. Shared that she allowed them to crack her neck which she had not previously done. Reports additional sarah as feeling ready to return to full-time employment and is excited to work a long shift today to begin to prepare herself for this. Stressor noted as an upcoming birthday dinner with her father and brother. Shared that her brother is not supportive of pt being a member of the LGBTQIAA community and she is fearful he will be rude. Did well to identify what is in her control that she can do to best support herself and prevent unnecessary conflict during the meal. Benefitted from encouragement, suggestions, and support of the group. Recommended continued IOP tx to further improve mood stability, promote improve self-care and consistent distress tolerance skills, well as prevent decompensation. Narrative Note: []
--- NOTE | 2024-02-01 09:55 | BH.MDN_ITS ---
Multi-Disciplinary Note Note 30-min Individual: Time Started:: 08:20 Date: 02/01/24 Purpose of session/treatment goals addressed:: Purpose of session was to review progress in treatment and discuss return to work plans. Eye Contact:: Good Motor Activity:: Appropriate Appearance:: Casual Speech:: Appropriate Mood:: Euthymic Affect:: Congruent Thoughts:: Linear, Logical and No evidence of hallucinations/delusions noted Staff Interventions:: motivational interviewing, CBT techniques, discharge planning, strengths perspective and other (started return to work coping plan) Client Response:: Pt receptive of session and openly discussed current symptoms, stressors, and areas of progress. Pt reports ?I feel like I?m making more progress than I have in the past? and indicated noticing an overall reduction in sx of depression and anxiety. Shared that she has been compliant with medications throughout IOP tx and feels this, along with actively utilizing DBT skills such as ?Delay, Distract, Decide?, have aided in improving pt?s agitation levels. Noted ?they are at about a 4/10 now, and before they were probably a 7/10?. Went on to report that although she and her mother continue to disagree about pt?s responsibilities in the home, they are overall getting along better and able to communicate without yelling or conflict. Shared she and her mother have started taking regular walks which has been a positive influence on their relationship. Went on to discuss looking forward to returning to work on 02/11/24 and feels better prepared to do so now. Pt identified that she will need to practice being consistent with her morning routine as she has not had to drive to work from her mother?s house since moving. Pt identified plans to practice getting ready in the morning like she would for work on days she attends IOP tx next week. Insight that this will aid in easing the transition back to work. Additionally discussed the importance of continuing to maintain balance once she returns to work and ensure she continues to engage in self- care. Noted wanting to continue to make time for regular walks. Identified the need to advocate for herself and communicate her boundaries so she is not asked to consistently work beyond the hours she is scheduled for. Receptive of completing a return to work coping plan to review with therapist in next session. Risks/Concerns:: None noted. Pt denies suicidal ideation, plan, or intent as of this date, 02/01/24 Progress Toward Goals/Plan:: Progress noted. Pt reports a reduction in depression, anxiety, and agitation. She is more consistently completing her self-care and personal hygiene goals, as well as reports improved communication with supports. Pt continues to struggle with distress tolerance and managing her emotions when experiencing conflict, specifically with her mother, but has shown much improvement in this area. Pt reports readiness to return to work and will remain in the IOP program 1 more week to complete discharge planning and review return to work plan. Time Stopped:: 08:51
--- NOTE | 2024-02-01 10:10 | BH.SGPN.GN ---
Behaviors/Verbalizations/Mental Status: [] Eye contact is good. Motor activity is appropriate. Appearance is casual. Speech is Appropriate. Mood is euthymic. Affect is congruent. Thoughts are linear and logical. No evidence of psychosis. Client Response/Progress/Benefit: [] Client was an active participant during interactive group discussions. Attentive during psychoeducation on the six types of boundaries (physical, emotional, intellectual, sexual, time, and material) AEB note-taking and input. Along with peers contributed to interactive discussion on defining what a boundary is in mental health. Client along with peers identified challenges to setting boundaries which included; fear of other's response, wanting to people please, fear of rejection, losing relationships, etc. Client along with peers identified the benefits to setting boundaries such as better mental health, strengthen relationships, increased time for self-care, and increased confidence. Group discussed the mental health benefits to establishing boundaries at work, school, and home. Client benefited from increased awareness and insight on the importance/benefit to setting health boundaries. Will continue in IOP to prevent decompensation and improve functioning. Narrative Note: []
--- NOTE | 2024-02-01 11:10 | BH.SGPN.GN ---
Behaviors/Verbalizations/Mental Status: [] Eye contact is good. Motor activity is appropriate. Appearance is casual. Speech is Appropriate. Mood is euthymic. Affect is congruent. Thoughts are linear and logical. No evidence of psychosis. Client Response/Progress/Benefit: [] Client responded well to session AEB listening attentively to peers, providing input, as well as taking notes throughout. Reports connecting most with rigid porous and rigid style of boundary setting, identifying it shift based off of the person. Participated in group discussion brainstorming various strategies for improving healthy boundary setting. Client reports wanting to begin compromising with supports to respect their boundaries and also share hers. Seemed to benefit from increased awareness of how different boundary styles can impact mental health. Will continue IOP tx to increase consistent application of skills, increase emotional regulation, and prevent decompensation. Narrative Note: []
--- NOTE | 2024-02-04 09:05 | BH.SGPN.GN ---
Behaviors/Verbalizations/Mental Status: []Eye contact is good. Motor activity is appropriate. Appearance is casual. Speech is Appropriate. Mood is euthymic. Affect is full. Thoughts are linear and logical. No evidence of psychosis. Reviewed daily check in sheet and no reports of suicidal ideations or intent. Client Response/Progress/Benefit: []Pt responded well to session, attentive and engaged. Pt reports feeling happy this morning. Pt was offered a promotion at her part-time job, she is looking forward to [employer] this weekend, and she is looking forward to going back to working full-time. Pt shared she feels she has improved with listening to my body and knowing when to challenge myself. Pt is stressed about returning to work as well, but she feels it will go well. Pt was given encouragement and gentle thought challenging which pt reported she benefitted from this. Pt will continue IOP tx to promote use of healthy coping skills, further increase impulse control, and establish aftercare. Narrative Note: []
--- NOTE | 2024-02-04 10:15 | BH.SGPN.GN ---
Behaviors/Verbalizations/Mental Status: [] Eye contact is fair.. Motor activity is appropriate. Appearance is casual. Speech is Appropriate. Mood is anxious. Affect is congruent. Thoughts are linear and logical. No evidence of psychosis. Client Response/Progress/Benefit: [] Pt did well to participate in activity and was engaged and attentive during psychoeducation and interactive discussion on coping skills, why people use unhealthy coping skills, how to replace unhealthy coping skills, and internal vs external coping skills. Attentive as peers came up with list of negative coping skills including not asking for help, avoidance, isolating, sleeping, shopping, substance use, and several others. Pt connected with others that using avoidance/escapism as a unhealthy way to cope. Recognizes this can increase issues. Group discussed the effects of how negative coping skills can impact mental health in a negative way. Benefited from increased understanding of unhealthy coping skills and the need for developing healthy internal and external coping skills. Will continue in IOP to maintain gains, continue use of healthy coping skills, and prevent decompensation.
--- NOTE | 2024-02-04 11:15 | BH.SGPN.GN ---
Behaviors/Verbalizations/Mental Status: []Pt alert and oriented, casually dressed and groomed. Eye contact good. Motor activity appropriate. Speech within normal limits. Affect congruent, mood anxious and content. Thoughts linear, logical, no signs of hallucinations or delusions. Client Response/Progress/Benefit: [] Pt responded well to session, taking notes and contributing when prompted. Group discussed the different categories of coping skills which included distraction, emotional release, grounding, self-love, and thought challenging. Pt participated in creating a coping skills ?menu? from the five categories of coping skills. Pt's coping skill menu included: self-care bingo, cleaning, deep breathing, boundaries, and identifying and challenging distortions. Appeared to benefit from increasing repertoire of healthy coping skills. Will continue IOP to improve mood stability, consistently apply healthy coping skills, and prevent decompensation. Narrative Note: []
--- NOTE | 2024-02-05 09:05 | BH.SGPN.GN ---
Behaviors/Verbalizations/Mental Status: [] Eye contact is good. Motor activity is appropriate. Appearance is casual. Speech is Appropriate. Mood is anxious/irritable. Affect is congruent. Thoughts are linear and logical. No evidence of psychosis. Reviewed daily check in sheet and no reports of suicidal ideations or intent. Client Response/Progress/Benefit: [] Pt participated at times during the group discussion. Attentive. Able to identify mental health wins and healthy habits. Shared with the group that she is planning on discharging from [facility] next week and feels ?ready?. Endorses decreased isolation and increased energy. More engaged in life and completing daily task. Also of note improved ADLs. She is anxious about returning to work however did reach out and meet with her [employer] supervisor which decreased apprehensions. Improved communication and honestly with support as she disclosed relationship with a female. Overall progress noted. Reports feeling hopeful. Benefited from group support, encouragement, and feedback. Will continue in [facility] to maintain gains, increase healthy coping, and improve functioning to return to work. Narrative Note: []
--- NOTE | 2024-02-05 10:10 | BH.SGPN.GN ---
Behaviors/Verbalizations/Mental Status: [] Eye contact is good. Motor activity is appropriate. Appearance is casual. Speech is Appropriate. Mood is anxious and content. Affect is congruent. Thoughts are linear and logical. No evidence of psychosis. Client Response/Progress/Benefit: [] Client receptive to session AEB listening attentively to others and taking notes. Pt attentive and contributing throughout psychoeducation on the cognitive triangle and maintenance cycles. Pt engaged during group discussion reviewing the impact of daily activities and behaviors in either reinforcing unhealthy maintenance cycles and depression or assisting in reducing symptoms (?down? vs ?up? activities). Client identified personal ?down? activities they engage in as: isolating, napping, task avoidance, and skipping self-care. Attentive during discussion on Common ?Up? activities client identified theirs to include: silliness, hobbies, making things, time with friends. Appeared to benefit from increased awareness of current behaviors and impact these have on mental health. Will continue IOP to stabilize mood, improve functioning, prevent decompensation. Narrative Note: []
--- NOTE | 2024-02-05 11:10 | BH.SGPN.GN ---
Behaviors/Verbalizations/Mental Status: []Eye contact is good. Motor activity is appropriate. Appearance is neat. Speech is Appropriate. Mood is euthymic. Affect is congruent. Thoughts are linear and logical. No evidence of psychosis. Client Response/Progress/Benefit: [] Pt responded well to session, attentive and engaged in group discussions and activity. Group discussed values and the benefits that knowing one's values can have on one's mental health. Pt explored own values and identified personal top values. Pt stated a personally important value is community and social justice. Pt set a goal to look for groups to join in [place] and to see if she can join a [employer] crow at work. Pt also reported benefitting from the activity and the group encouragement today. Will continue in IOP to promote mood stability and reinforce healthy coping skills. Narrative Note: []
--- NOTE | 2024-02-07 09:05 | BH.SGPN.GN ---
Behaviors/Verbalizations/Mental Status: [] Eye contact is good. Motor activity is appropriate. Appearance is casual. Speech is Appropriate. Mood is euthymic. Affect is full. Thoughts are linear and logical. No evidence of psychosis. Reviewed daily check in sheet and no reports of suicidal ideations or intent. Client Response/Progress/Benefit: [] Pt was an active participant in group discussions. Attentive. Shared with the group that today was her last day. Set to discharge successfully. Feels that IOP has helped her communicate more effectively and stabilize negative thoughts. Shared struggled with emotion regulation for the past several months which impacted her job and relationships. Feeling hopeful. Aftercare is arranged. Benefited from group support and encouragement. Will be discharged today. Narrative Note: []
--- NOTE | 2024-02-07 09:43 | BH.MDN_ITS ---
Multi-Disciplinary Note Note 30-min Individual: Time Started:: 09:13 Date: 02/07/24 Purpose of session/treatment goals addressed:: To address any current stressors and review progress made in [facility]. Pt to discharge today. Eye Contact:: Good Motor Activity:: Appropriate Appearance:: Neat and Casual Speech:: Appropriate Mood:: Euthymic Affect:: Congruent Thoughts:: Linear, Logical and No evidence of hallucinations/delusions noted Staff Interventions:: thought challenging, CBT techniques, discharge planning, strengths perspective and reviewed DSM-5 Client Response:: Pt responded well to session, open to meeting with therapist. Pt reported she is excited and somewhat anxious to return to working full-time next week. Discussed feeling more capable of balancing self-care, spending time with supports, and work. Pt identified that she will need to continue to prioritize advocating for her needs and maintaining boundaries with her mother, using opposite action to keep consistent with her personal hygiene routine and engaged in hobbies, as well as continue to utilize DBT distress tolerance skills. Pt reports overall her mood is improved, she is feeling more motivated to do things and is less irritable. Shared her relationships are improved as a result and she is more confident in her ability to manage her emotions when communicating difficult things with supports. Shared plans to meet with her budget manager on Sunday to discuss what support she will need upon returning to work, as well as communicate boundaries of not working overtime. After pt processed her emotions around work, pt gave herself credit for all her progress in [facility]. Pt identified progress in reducing alcohol consumption, setting boundaries at work and with family, using calming skills consistently, and being more independent. Pt reports feeling proud of her ability to challenge herself to do the hard things and challenge negative thoughts, more consistently complete her regular responsibilities, and begin to make decisions more independently. Risks/Concerns:: No SI or thoughts of as of this date 02/07/24 Progress Toward Goals/Plan:: Pt has made significant progress while in [facility] AEB her self-report of overall improved mood and functioning. Pt's DSM-5 scores have also decreased since admission and pt feels more confident in her ability to manage her symptoms. Pt has ongoing work stress, but pt is much more capable of regulating her emotions and advocating for herself. Pt will discharge from [facility] tx today and continue with outpatient providers. Time Stopped:: 09:37
--- NOTE | 2024-02-07 09:50 | BH.IGGP_ITS ---
Aftercare Plan Demographics Treatment End Date:: 02/07/24 Psychiatrist:: Maddie Lainez Psychiatrist Office #:: [phone] [facility]/IOP Therapist:: Britta Delvalle Therapist Phone #:: [phone] Medications Home Medications fluoxetine 20 mg capsule 20 mg PO DAILY 08/12/17 levonorgestrel 17.5 mcg/24 hr (up to 5 yrs) 19.5mg intrauterine device 1 ea IY X1 05/10/20 dextroamphetamine-amphetamine 10 mg tablet (Adderall) 10 mg PO LUNCH 09/20/22 dextroamphetamine-amphetamine ER 25 mg 24hr capsule,extend release (Adderall XR) 25 mg PO DAILY 01/02/24 lamotrigine 150 mg tablet (Lamictal) 300 mg PO DAILY 01/02/24 aripiprazole 15 mg tablet (Abilify) 15 mg PO QHS 90 days #90 tabs 01/16/24 Plan Details Progress/Aftercare Plan Details:: Maile has responded well to treatment as evidenced by consistently attending IOP sessions and her reduction of DSM-5 scores since admission. She was always attentive and receptive to learning during group and individual sessions. Maile actively applied coping skills outside of IOP, reports overall her mood is improved, and she is functioning better than she was several months ago. Maile?s overall symptom reduction is % since admission with anger decreasing by %, depression decreasing by %, and anxiety decreasing by %. Maile has greatly reduced her alcohol consumption and she has plans to return to work full-time Sunday. She has increased self- confidence in her ability to manage her emotions and communicate her needs and boundaries with supports. Strategies for Success:: 1. Opposite action! Continue to break that cycle of anxiety and depression by not letting emotions be the only drivers of your bus. 2. Remember that thoughts are thoughts NOT facts! You have power to decide if you give thoughts the time of day or not. 3. self-care! You deserve to take time for you and you also deserve to face the not so fun self-care like sitting with the uncomfortable 4. Self-compassion! You are human and you will make a mistake?BUT that doesn?t mean you are a failure or not good enough. Give yourself credit for all the wonderful things you do. 5. Practice positive self- talk and keep track of your wins. 6. Remember progress isn?t linear! You may have a setback or bump in the road, but that doesn?t mean you?ve lost all progress. 7. self-reflection and self-awareness. 8. Delay, Distract, Decide 9. Live in the guido! Appointments Appointments/Referrals to Other Services:: 1. Follow up with Dr Tripathi for ongoing medication management 2.Dr. Frost for outpatient therapy
--- NOTE | 2024-02-07 10:15 | BH.SGPN.GN ---
Behaviors/Verbalizations/Mental Status: []Client alert and oriented, casually dressed and groomed. Eye contact good. Motor activity appropriate. Speech within normal limits. Affect congruent, mood content. Thoughts linear, logical, no signs of hallucinations or delusions. Client Response/Progress/Benefit: []Pt engaged in session AEB listening attentively to others and providing input throughout. Pt engaged in activity, able to connect how it can be uncomfortable and difficult to accept when things are out of one?s own control. Pt worked with group to identify what things in life can be hard to accept. Group identified things hard to accept as: change, loss, mental health diagnosis, other?s behaviors, and failure. Pt identified struggling to accept that it's important for her to engage in self-care. Seemed to benefit from increased awareness of the importance of acceptance. Pt to continue in IOP tx to improve distress tolerance, improve confidence, and prevent decompensation.
--- NOTE | 2024-02-07 11:15 | BH.SGPN.GN ---
Behaviors/Verbalizations/Mental Status: []Pt alert and oriented, casually dressed and groomed. Eye contact good. Motor activity appropriate. Speech within normal limits. Affect congruent, mood content. Thoughts linear, logical, no signs of hallucinations or delusions. Client Response/Progress/Benefit: [] Pt responded well to session AEB taking notes and contributing to discussion throughout. Pt engaged as group continued discussion on acceptance and the mental health benefits of practicing acceptance. Pt and peers identified what makes acceptance challenging and pt completed a self-reflection exercise on what is hard to accept in pt's life. Pt identified what is hard to accept in their life that they would like to work on is a need for more independent self-care. Group identified strategies to increase acceptance and pt wants to practice self-compassion and positive self-talk in order to increase acceptance. Pt appeared to benefit from gaining insight and learning strategies to increase acceptance. Pt will d/c from IOP tx given progress and continue with outpatient counseling to prevent decompensation and maintain mood stability. Narrative Note: []
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
== END 2024-02-07 12:28 | disposition home or self-care (01) ==
LOC: BHIOP 07:15
PROVIDERS: Referring Provider Psychiatry & Neurology Psychiatry; Visit Provider Psychiatry & Neurology Psychiatry
DX: F31.9 Bipolar disorder, unspecified (principal); F60.3 Borderline personality disorder; F41.1 Generalized anxiety disorder; F98.8 Other specified behavioral and emotional disorders with onset usually occurring in childhood and adolescence; F10.90 Alcohol use, unspecified, uncomplicated; F14.91 Cocaine use, unspecified, in remission
CPT/HCPCS: S9480; 90832; 90853